=== PATIENT | male | born 1980 | race Caucasian/White ===

== ENCOUNTER 2022-05-06 14:18 | Emergency (ER) | payer OTHER, SELFPAY ==
[2022-05-06 14:20] VITALS: BP 152/89; PULSE 99; RESP 18; TEMP 36.8; O2SAT 99; BMI 17.7
--- NOTE | 2022-05-06 15:12 | ED_ITS ---
HPI - General Adult General Chief complaint: Psychiatric Symptoms <JOSE DAVID Mark - Last Filed: 05/06/22 19:02> Stated complaint: having a breakdown <JOSE DAVID Mark - Last Filed: 05/06/22 19:02> Time Seen by Provider: 05/06/22 15:11 <JOSE DAVID Mark - Last Filed: 05/06/22 19:02> Source: patient <JOSE DAVID Mark - Last Filed: 05/06/22 19:02> Mode of arrival: ambulatory <JOSE DAVID Mark - Last Filed: 05/06/22 19:02> Limitations: no limitations <JOSE DAVID Mark - Last Filed: 05/06/22 19:02> History of Present Illness HPI narrative: Patient is a 41 year old assigned male at with a history of depression and anxiety presenting to the emergency department today with increased depression. Patient states that his father recently passed and he has been more depressed since then. Patient denies any suicidal ideation, homicidal ideation, dizziness, lightheadedness, abdominal pain, nausea, vomiting, fever, chills, blurry vision, double vision, loss of vision, chest pain, difficulty breathing, shortness of breath, back pain, night sweats, pain with urination, increased urinary frequency, increased urinary urgency, blood in his urine or stool, syncope or a near syncopal episode, recent trauma or falls, bowel incontinence, bladder incontinence, bowel retention, bladder retention, or any other complaints at this time. <JOSE DAVID Mark - Last Filed: 05/06/22 19:02> Onset (ago): day(s) <JOSE DAVID Mark - Last Filed: 05/06/22 19:02> Severity: mild <JOSE DAVID Mark - Last Filed: 05/06/22 19:02> Severity scale (1-10): 2 <JOSE DAVID Mark - Last Filed: 05/06/22 19:02> Relieving factors: none <JOSE DAVID Mark - Last Filed: 05/06/22 19:02> Exacerbating factors: none <JOSE DAVID Mark - Last Filed: 05/06/22 19:02> Associated symptoms: denies other symptoms <JOSE DAVID Mark - Last Filed: 05/06/22 19:02> Treatments prior to arrival: none <JOSE DAVID Mark Last Filed: 05/06/22 19:02> Related Data Home medications: Home Medications Medication Instructions Recorded Confirmed methadone 10 mg/5 mL oral solution 94 mg PO Q4H 03/08/22 03/08/22 Previous Rx's Medication Instructions Recorded albuterol sulfate 90 mcg/actuation 2 puff inhalation Q6H PRN 07/19/20 aerosol inhaler (ProAir HFA) shortness of breath or wheezing 30 days #8.5 grams mirtazapine 7.5 mg tablet 7.5 mg PO BEDTIME 30 days #30 tabs 11/26/21 paroxetine HCl 10 mg tablet 10 mg PO DAILY 30 days #90 tabs 03/04/22 clonazepam 1 mg tablet 1 mg PO BID PRN anxiety 30 days 05/06/22 #60 tabs <JOSE DAVID Mark Last Filed: 05/06/22 19:02> Allergies/adverse reactions: Allergies Allergy/AdvReac Type Severity Reaction Status Date / Time amoxicillin [Amoxicillin] Allergy Mild SWELLING Verified 03/08/22 08:41 Penicillins Allergy Mild SWELLING Verified 03/08/22 08:41 penicillin V Allergy Unknown unknown Verified 03/08/22 08:41 Doxycycline Hyclate Allergy Unknown unknown Uncoded 03/08/22 08:41 <JOSE DAVID Mark Last Filed: 05/06/22 19:02> Review of Systems Constitutional: Constitutional: Reports no additional constitutional complaints, Denies chills, Denies fever(s) and Denies night sweats <JOSE DAVID Mark Last Filed: 05/06/22 19:02> Eyes: Eyes: Reports no additional eye complaints, Denies blurry vision, Denies change in vision, Denies diplopia, Denies eye discharge, Denies loss of vision and Denies eye pain <JOSE DAVID Mark Last Filed: 05/06/22 19:02> ENT: Denies dizziness <JOSE DAVID Mark Last Filed: 05/06/22 19:02> Cardiovascular: Cardiovascular: Reports no additional cardiovascular complaints, Denies chest pain, Denies lightheadedness, Denies Loss of Consciousness and Denies dyspnea <JOSE DAVID Mark Last Filed: 05/06/22 19:02> Respiratory: Respiratory: Reports no additional respiratory complaints and Denies dyspnea <JOSE DAVID Mark Last Filed: 05/06/22 19:02> Gastrointestinal: Gastrointestinal: Reports no additional gastrointestinal complaints, Denies abdominal pain, Denies melena, Denies hematochezia, Denies change in bowel habits and Denies change in stool character <JOSE DAVID Mark - Last Filed: 05/06/22 19:02> Genitourinary: Genitourinary: Reports no additional male genitourinary complaints, Denies hematuria, Denies oliguria, Denies difficulty urinating, Denies dysuria, Denies urinary frequency, Denies urinary hesitancy, Denies urinary incontinence and Denies urinary urgency <JOSE DAVID Mark - Last Filed: 05/06/22 19:02> Musculoskeletal: Musculoskeletal: Reports no additional musculoskeletal complaints, Denies numbness and Denies tingling <JOSE DAVID Mark - Last Filed: 05/06/22 19:02> Neurologic: Denies dizziness, Denies loss of vision, Denies numbness and Denies tingling <JOSE DAVID Mark Last Filed: 05/06/22 19:02> Psychiatric: Psychiatric: Reports no additional psychiatric complaints and Reports depression <JOSE DAVID Mark Last Filed: 05/06/22 19:02> Endocrine: Endocrine: Reports no additional endocrine complaints <JOSE DAVID Mark - Last Filed: 05/06/22 19:02> Hematologic/Lymphatic: Hematologic/Lymphatic: Reports no additional hematologic/lymphatic complaints <JOSE DAVID Mark - Last Filed: 05/06/22 19:02> Allergic/Immunologic: Allergic/Immunologic: Reports no additional allergic/immunologic complaints <JOSE DAVID Mark - Last Filed: 05/06/22 19:02> PMFSH Past Medical History Attestation statement: The following information was validated with the patient. <JOSE DAVID Mark - Last Filed: 05/06/22 19:02> Source: old records reviewed <JOSE DAVID Mark - Last Filed: 05/06/22 19:02> Medical History: Medical History Anxiety Anxiety and depression <JOSE DAVID Mark - Last Filed: 05/06/22 19:02> Surgical History: Surgical History No pertinent past surgical history <JOSE DAVID Mark - Last Filed: 05/06/22 19:02> Family History Family History: Family History Father COPD (chronic obstructive pulmonary disease) Mother Cancer Maternal Uncle Mental health disorder Paternal Uncle Mental health disorder <JOSE DAVID Mark - Last Filed: 05/06/22 19:02> Social History Social History: Social History Housing: Apartment Alcohol intake: never Patient Tobacco Use Status: Current everyday Tobacco user Cigarettes Per Day: 10 e-Cigarette/Vaping Use: Never Used Second Hand Smoke Exposure: Yes Advance Directives: No Advance Directives Information Provided: No service: No Current occupational status: unemployed Cognitive needs: No Hearing needs: No Vision needs: No <JOSE DAVID Mark - Last Filed: 05/06/22 19:02> Physical Exam ED Vital Signs: Vital Signs - 24 hr 05/06/22 14:20 Temperature 98.3 F Pulse Rate 99 Respiratory Rate 18 Blood Pressure 152/89 H Pulse Oximetry 99 Oxygen Delivery Method Room Air BMI result Body Mass Index 17.7 <JOSE DAVID Mark - Last Filed: 05/06/22 19:02> Vital Signs - 24 hr 05/06/22 14:20 Temperature 98.3 F Pulse Rate 99 Respiratory Rate 18 Blood Pressure 152/89 H Pulse Oximetry 99 Oxygen Delivery Method Room Air BMI result Body Mass Index 17.7 <Neida Lakhani NP - Last Filed: 05/06/22 18:43> Const General: cooperative, no acute distress, alert and awake <JOSE DAVID Mark - Last Filed: 05/06/22 19:02> Nutritional Appearance: well nourished <JOSE DAVID Mark - Last Filed: 05/06/22 19:02> Orientation/consciousness: patient oriented x3 <JOSE DAVID Mark - Last Filed: 05/06/22 19:02> Limitations: no limitations <JOSE DAVID Mark - Last Filed: 05/06/22 19:02> HENMT Head: Yes normal to inspection and Yes atraumatic <Yashira Salvadormady LA - Last Filed: 05/06/22 19:02> Ears: hearing grossly normal bilaterally and external ears normal <Yashira Salvadormady LA - Last Filed: 05/06/22 19:02> General nose exam: Normal external nose present, no nasal discharge noted and no epistaxis <Yashira Salvadormady LA - Last Filed: 05/06/22 19:02> Face and sinus: Yes normal facial exam, No abrasion and No laceration <Yashira Salvadormady LA - Last Filed: 05/06/22 19:02> Mouth: Normal oral and palatal mucosa present, no drooling and no muffled voice <Yashiradeysi Salvadormady LA - Last Filed: 05/06/22 19:02> Eyes General: appearance normal, both eyes and all related structures <Yashira Florez LA - Last Filed: 05/06/22 19:02> Periorbital: periorbital findings normal <Yashira Salvadormady LA - Last Filed: 05/06/22 19:02> Eyelids: Yes eyelids normal <Yashiradeysi Salvadormady LA - Last Filed: 05/06/22 19:02> Conjunctivae: conjunctivae normal <Yashira Salvadormady LA - Last Filed: 05/06/22 19:02> Pupils: Equal, round and reactive pupils present <Yashira Vikki LA - Last Filed: 05/06/22 19:02> EOM: EOMs intact bilaterally <Yashira Vikki LA - Last Filed: 05/06/22 19:02> Neck Neck: Yes normal visual inspection, Yes full ROM and Yes no lymphadenopathy <Yashira Vikki LA - Last Filed: 05/06/22 19:02> Chest Chest palpation & inspection: normal inspection of the chest <Yashira Florez LA - Last Filed: 05/06/22 19:02> Resp Effort & Inspection: normal respiratory effort and able to speak in complete sentences <JOSE DAVID Mark - Last Filed: 05/06/22 19:02> Auscultation: clear to auscultation bilaterally <Yashira Florez PA - Last Filed: 05/06/22 19:02> Cardio Rate: regular rate <Yashira Florez PA - Last Filed: 05/06/22 19:02> Rhythm: regular rhythm <Yashira Florez PA - Last Filed: 05/06/22 19:02> GI Inspection: Yes normal to inspection <Yashira Florez PA - Last Filed: 05/06/22 19:02> Neuro General: patient oriented x3 and moves all extremities <Yashira Salvadormady PA - Last Filed: 05/06/22 19:02> Cranial nerves: Yes Equal, round and reactive pupils present <Yashira Florez PA - Last Filed: 05/06/22 19:02> Cognition (Neuro): normal cognition <Yashira Florez PA - Last Filed: 05/06/22 19:02> Motor exam (neuro): 5/5 motor strength present throughout <Yashira Florez PA - Last Filed: 05/06/22 19:02> Sensory Exam: Normal double simultaneous stimulation for sensation <Yashira Salvadormady PA - Last Filed: 05/06/22 19:02> Coordination: [id number] test normal <Yashira Salvadormady PA - Last Filed: 05/06/22 19:02> Extrem General: Yes normal to inspection, Yes full ROM and Yes capillary refill normal <Yashira Salvadormady PA - Last Filed: 05/06/22 19:02> Psych Appearance: grossly normal <Yashira Salvadormady PA - Last Filed: 05/06/22 19:02> Mental Status: mental status grossly normal <Yashira SalvadorJOSE DAVID earl - Last Filed: 05/06/22 19:02> Affect: Sad affect present <Yashira Salvadormady PA - Last Filed: 05/06/22 19:02> Attitude: cooperative <Yashira Salvadormady PA - Last Filed: 05/06/22 19:02> Thought process: Normal thought process present <Yashira SalvadorJOSE DAVID earl - Last Filed: 05/06/22 19:02> Thought content: Normal thought content present <Yashira JOSE DAVID Florez - Last Filed: 05/06/22 19:02> Insight: Good insight present (Psych) <Yashira JOSE DAVID Florez - Last Filed: 05/06/22 19:02> Course Course Course Narrative: 18:41 BHN consult complete, is for discharge and referral to outpatient program. Patient denies suicidal homicidal ideation, and feels safe to be discharged home. <Neida Lakhani NP - Last Filed: 05/06/22 18:43> Medical Decision Making MDM Narrative Medical decision making narrative: Patient is a 41 year old assigned male at with a history of anxiety and depression presenting to the emergency department today with increased depression. Patient's physical exam was unremarkable. Patient's blood work was unremarkable. Patient was evaluated by the behavioral health team and they recommended him for discharge. I explained my physical exam findings as well as all test results to the patient. I answered all questions asked by the patient. I stressed the importance of the patient taking his medication as prescribed. I stressed the importance of the patient following up with his primary care pro vider. I stressed the importance of the patient returning to the emergency department immediately if his symptoms were to worsen or if he were to develop any dizziness, shortness of breath, difficulty breathing, chest pain, blurry vision, loss of vision, nausea, vomiting, abdominal pain, fever, chills, back pain, or any other complaints. Patient verbalized agreement and understanding with this treatment plan and discharge. <JOSE DAVID Mark - Last Filed: 05/06/22 19:02> Medical Records Medical records reviewed: Yes I reviewed the patient's medical records. <JOSE DAVID Mark - Last Filed: 05/06/22 19:02> Lab Data Lab results reviewed: Yes I reviewed the patient's lab results. <JOSE DAVID Mark - Last Filed: 05/06/22 19:02> Result diagrams: : 05/06/22 15:49 05/06/22 15:49 <JOSE DAVID Mark - Last Filed: 05/06/22 19:02> Labs: Lab Results 05/06/22 05/06/22 05/06/22 Range/Units 15:38 15:38 15:49 WBC 7.8 (4.8-10.8) X10*3/uL RBC 5.89 H (4.60-5.80) X10*6/uL Hgb 16.3 (14.0-18.0) g/dl Hct 48.7 (42.0-52.0) % MCV 82.7 (80.0-98.0) fL MCH 27.7 (27.0-33.0) pg MCHC 33.5 (31.0-36.0) g/dl RDW 13.6 (11.0-16.0) % Plt Count 266 (160-400) X10*3/uL MPV 8.6 L (9.4-12.4) fL Immature Gran % (Auto) 0.4 (0.0-0.4) % Neut % (Auto) 63.7 (45-73) % Lymph % (Auto) 25.8 (20-40) % [place] % (Auto) 9.0 (2-11) % Eos % (Auto) 0.6 (0-4) % Baso % (Auto) 0.5 (0-2) % Lymph # (Auto) 2.0 (1.2-4.9) X10*3/uL [place] # (Auto) 0.7 (0.1-1.2) X10*3/uL Eos # (Auto) 0.1 (0.0-0.4) X10*3/uL Baso # (Auto) 0.0 (0.0-0.2) X10*3/uL Abs Immat Gran (auto) 0.03 (0.00-0.03) X10*3/uL Absolute Neuts (auto) 5.0 (2.0-8.3) x10*3/uL Absolute Nucleated RBC 0.000 (0.0-0.012) X10*3/uL Nucleated RBC % (auto) 0.0 (0.0-0.2) /100WBC Sodium (135-145) mmol/L Potassium (3.3-5.1) mmol/L Chloride (96-108) mmol/L Carbon Dioxide (22-29) mmol/L Anion Gap (12-20) BUN (9-16) mg/dL Creatinine (0.5-1.4) mg/dL Estim Creat Clear Calc Estimated GFR Random Glucose (60-115) mg/dL Calcium (8.4-10.2) mg/dL Total Bilirubin (0.0-1.0) mg/dL AST (5-37) U/L ALT (0-40) U/L Alkaline Phosphatase (39-117) U/L Total Protein (6.5-8.0) g/dL Albumin (3.5-5.0) g/dL Salicylates (15-30) mg/dL Urine Opiates Screen POSITIVE H (Not Detect) Urine Fentanyl Screen POSITIVE H (Not Detect) Acetaminophen (<30) mcg/mL Ur Barbiturates Screen Not Detected (Not Detect) Ur Phencyclidine Scrn Not Detected (Not Detect) Ur Amphetamines Screen Not Detected (Not Detect) U Benzodiazepines Scrn Not Detected (Not Detect) Urine Cocaine Screen Not Detected (Not Detect) U Marijuana (THC) Screen POSITIVE H (Not Detect) Ethyl Alcohol mg/dL COVID-19 (ROLF) Negative (Negative) COVID-19 Clin Com See Note 05/06/22 Range/Units 15:49 WBC (4.8-10.8) X10*3/uL RBC (4.60-5.80) X10*6/uL Hgb (14.0-18.0) g/dl Hct (42.0-52.0) % MCV (80.0-98.0) fL MCH (27.0-33.0) pg MCHC (31.0-36.0) g/dl RDW (11.0-16.0) % Plt Count (160-400) X10*3/uL MPV (9.4-12.4) fL Immature Gran % (Auto) (0.0-0.4) % Neut % (Auto) (45-73) % Lymph % (Auto) (20-40) % [place] % (Auto) (2-11) % Eos % (Auto) (0-4) % Baso % (Auto) (0-2) % Lymph # (Auto) (1.2-4.9) X10*3/uL [place] # (Auto) (0.1-1.2) X10*3/uL Eos # (Auto) (0.0-0.4) X10*3/uL Baso # (Auto) (0.0-0.2) X10*3/uL Abs Immat Gran (auto) (0.00-0.03) X10*3/uL Absolute Neuts (auto) (2.0-8.3) x10*3/uL Absolute Nucleated RBC (0.0-0.012) X10*3/uL Nucleated RBC % (auto) (0.0-0.2) /100WBC Sodium 136 (135-145) mmol/L Potassium 4.6 (3.3-5.1) mmol/L Chloride 97 (96-108) mmol/L Carbon Dioxide 26 (22-29) mmol/L Anion Gap 18 (12-20) BUN 12 (9-16) mg/dL Creatinine 0.93 (0.5-1.4) mg/dL Estim Creat Clear Calc 82.1 Estimated GFR > 60 Random Glucose 81 (60-115) mg/dL Calcium 10.0 (8.4-10.2) mg/dL Total Bilirubin 1.0 (0.0-1.0) mg/dL AST 17 (5-37) U/L ALT 12 (0-40) U/L Alkaline Phosphatase 70 (39-117) U/L Total Protein 8.1 H (6.5-8.0) g/dL Albumin 4.7 (3.5-5.0) g/dL Salicylates < 5.0 L (15-30) mg/dL Urine Opiates Screen (Not Detect) Urine Fentanyl Screen (Not Detect) Acetaminophen < 1 (<30) mcg/mL Ur Barbiturates Screen (Not Detect) Ur Phencyclidine Scrn (Not Detect) Ur Amphetamines Screen (Not Detect) U Benzodiazepines Scrn (Not Detect) Urine Cocaine Screen (Not Detect) U Marijuana (THC) Screen (Not Detect) Ethyl Alcohol < 10 mg/dL COVID-19 (ROLF) (Negative) COVID-19 Clin Com <JOSE DAVID Mark - Last Filed: 05/06/22 19:02> Lab Results 05/06/22 05/06/22 05/06/22 Range/Units 15:38 15:38 15:49 WBC 7.8 (4.8-10.8) X10*3/uL RBC 5.89 H (4.60-5.80) X10*6/uL Hgb 16.3 (14.0-18.0) g/dl Hct 48.7 (42.0-52.0) % MCV 82.7 (80.0-98.0) fL MCH 27.7 (27.0-33.0) pg MCHC 33.5 (31.0-36.0) g/dl RDW 13.6 (11.0-16.0) % Plt Count 266 (160-400) X10*3/uL MPV 8.6 L (9.4-12.4) fL Immature Gran % (Auto) 0.4 (0.0-0.4) % Neut % (Auto) 63.7 (45-73) % Lymph % (Auto) 25.8 (20-40) % [place] % (Auto) 9.0 (2-11) % Eos % (Auto) 0.6 (0-4) % Baso % (Auto) 0.5 (0-2) % Lymph # (Auto) 2.0 (1.2-4.9) X10*3/uL [place] # (Auto) 0.7 (0.1-1.2) X10*3/uL Eos # (Auto) 0.1 (0.0-0.4) X10*3/uL Baso # (Auto) 0.0 (0.0-0.2) X10*3/uL Abs Immat Gran (auto) 0.03 (0.00-0.03) X10*3/uL Absolute Neuts (auto) 5.0 (2.0-8.3) x10*3/uL Absolute Nucleated RBC 0.000 (0.0-0.012) X10*3/uL Nucleated RBC % (auto) 0.0 (0.0-0.2) /100WBC Sodium (135-145) mmol/L Potassium (3.3-5.1) mmol/L Chloride (96-108) mmol/L Carbon Dioxide (22-29) mmol/L Anion Gap (12-20) BUN (9-16) mg/dL Creatinine (0.5-1.4) mg/dL Estim Creat Clear Calc Estimated GFR Random Glucose (60-115) mg/dL Calcium (8.4-10.2) mg/dL Total Bilirubin (0.0-1.0) mg/dL AST (5-37) U/L ALT (0-40) U/L Alkaline Phosphatase (39-117) U/L Total Protein (6.5-8.0) g/dL Albumin (3.5-5.0) g/dL Salicylates (15-30) mg/dL Urine Opiates Screen POSITIVE H (Not Detect) Urine Fentanyl Screen POSITIVE H (Not Detect) Acetaminophen (<30) mcg/mL Ur Barbiturates Screen Not Detected (Not Detect) Ur Phencyclidine Scrn Not Detected (Not Detect) Ur Amphetamines Screen Not Detected (Not Detect) U Benzodiazepines Scrn Not Detected (Not Detect) Urine Cocaine Screen Not Detected (Not Detect) U Marijuana (THC) Screen POSITIVE H (Not Detect) Ethyl Alcohol mg/dL COVID-19 (ROLF) Negative (Negative) COVID-19 Clin Com See Note 05/06/22 Range/Units 15:49 WBC (4.8-10.8) X10*3/uL RBC (4.60-5.80) X10*6/uL Hgb (14.0-18.0) g/dl Hct (42.0-52.0) % MCV (80.0-98.0) fL MCH (27.0-33.0) pg MCHC (31.0-36.0) g/dl RDW (11.0-16.0) % Plt Count (160-400) X10*3/uL MPV (9.4-12.4) fL Immature Gran % (Auto) (0.0-0.4) % Neut % (Auto) (45-73) % Lymph % (Auto) (20-40) % [place] % (Auto) (2-11) % Eos % (Auto) (0-4) % Baso % (Auto) (0-2) % Lymph # (Auto) (1.2-4.9) X10*3/uL [place] # (Auto) (0.1-1.2) X10*3/uL Eos # (Auto) (0.0-0.4) X10*3/uL Baso # (Auto) (0.0-0.2) X10*3/uL Abs Immat Gran (auto) (0.00-0.03) X10*3/uL Absolute Neuts (auto) (2.0-8.3) x10*3/uL Absolute Nucleated RBC (0.0-0.012) X10*3/uL Nucleated RBC % (auto) (0.0-0.2) /100WBC Sodium 136 (135-145) mmol/L Potassium 4.6 (3.3-5.1) mmol/L Chloride 97 (96-108) mmol/L Carbon Dioxide 26 (22-29) mmol/L Anion Gap 18 (12-20) BUN 12 (9-16) mg/dL Creatinine 0.93 (0.5-1.4) mg/dL Estim Creat Clear Calc 82.1 Estimated GFR > 60 Random Glucose 81 (60-115) mg/dL Calcium 10.0 (8.4-10.2) mg/dL Total Bilirubin 1.0 (0.0-1.0) mg/dL AST 17 (5-37) U/L ALT 12 (0-40) U/L Alkaline Phosphatase 70 (39-117) U/L Total Protein 8.1 H (6.5-8.0) g/dL Albumin 4.7 (3.5-5.0) g/dL Salicylates < 5.0 L (15-30) mg/dL Urine Opiates Screen (Not Detect) Urine Fentanyl Screen (Not Detect) Acetaminophen < 1 (<30) mcg/mL Ur Barbiturates Screen (Not Detect) Ur Phencyclidine Scrn (Not Detect) Ur Amphetamines Screen (Not Detect) U Benzodiazepines Scrn (Not Detect) Urine Cocaine Screen (Not Detect) U Marijuana (THC) Screen (Not Detect) Ethyl Alcohol < 10 mg/dL COVID-19 (ROLF) (Negative) COVID-19 Clin Com <Neida Lakhani NP - Last Filed: 05/06/22 18:43> Discharge Plan Discharge Clinical Impression: Depression <JOSE DAVID Mark - Last Filed: 05/06/22 19:02> Patient Disposition: Home, Self-Care <JOSE DAVID Mark - Last Filed: 05/06/22 19:02> Instructions: Depression (ED) <JOSE DAVID Mark - Last Filed: 05/06/22 19:02> Additional Instructions: Follow-up with outpatient psychiatry as scheduled. Thank you for choosing this emergency department for evaluation. Please follow-up with primary care physician as needed. Return to the emergency department for any new, concerning, or worsening symptoms. <JOSE DAVID Mark - Last Filed: 05/06/22 19:02> Prescriptions: No Action albuterol sulfate [ProAir HFA] 90 mcg/actuation HFA aerosol inhaler 2 puff inhalation Q6H PRN (Reason: shortness of breath or wheezing) 30 Days Qty: 8.5 4RF mirtazapine 7.5 mg tablet 7.5 mg PO BEDTIME 30 Days Qty: 30 3RF paroxetine HCl 10 mg tablet 10 mg PO DAILY 30 Days Qty: 90 0RF clonazepam 1 mg tablet 1 mg PO BID PRN (Reason: anxiety) 30 Days Qty: 60 0RF methadone 10 mg/5 mL solution 94 mg PO Q4H <JOSE DAVID Mark - Last Filed: 05/06/22 19:02> Interventions: ED Discharge Assessment Last Done: 05/06/22 18:51 <JOSE DAVID Mark - Last Filed: 05/06/22 19:02>
[2022-05-06 15:59] LABS: MANUAL DIFF FLAG NO
[2022-05-06 16:01] LABS: COVID-19 Test Negative (Negative)
[2022-05-06 16:02] LABS: Basophils Percent Auto 0.5 % (0-2); Eosinophils Absolute Auto 0.1 X10*3/uL (0.0-0.4); Eosinophils Percent Auto 0.6 % (0-4); Hematocrit 48.7 % (42.0-52.0); Hemoglobin 16.3 g/dl (14.0-18.0); Imm Gran Abs Auto 0.03 X10*3/uL (0.00-0.03); Imm Gran Pct Auto 0.4 % (0.0-0.4); Lymphocytes Percent Auto 25.8 % (20-40); Mean Corpuscular HGB Conc 33.5 g/dl (31.0-36.0); Mean Corpuscular Hemoglobin 27.7 pg (27.0-33.0); Mean Corpuscular Volume 82.7 fL (80.0-98.0); Mean Platelet Volume 8.6 fL (9.4-12.4); Monocytes Absolute Auto 0.7 X10*3/uL (0.1-1.2); Neutrophils Percent Auto 63.7 % (45-73); Platelet Count 266 X10*3/uL (160-400); Red Blood Count 5.89 X10*6/uL (4.60-5.80); Red Cell Distribution Width 13.6 % (11.0-16.0); White Blood Count 7.8 X10*3/uL (4.8-10.8)
[2022-05-06 16:04] LABS: Amphetamine Screen Urine Not Detected (Not Detect); Barbiturates, Urine Not Detected (Not Detect); Benzodiazepines Screen Urine Not Detected (Not Detect); Cannabinoid Screen Urine POSITIVE (Not Detect); Cocaine Screen Urine Not Detected (Not Detect); Fentanyl, urine POSITIVE (Not Detect); Opiate Screen Urine POSITIVE (Not Detect); Phencyclidine Screen Urine Not Detected (Not Detect)
[2022-05-06 16:17] LABS: Acetaminophen LAB < 1 mcg/mL (<30); Alanine Aminotransferase 12 U/L (0-40); Albumin Level 4.7 g/dL (3.5-5.0); Alkaline Phosphatase 70 U/L (39-117); Anion Gap 18 (12-20); Aspartate Amino Transferase 17 U/L (5-37); Blood Urea Nitrogen 12 mg/dL (9-16); Carbon Dioxide 26 mmol/L (22-29); Chloride 97 mmol/L (96-108); Creatinine Clr Calc Pharmacy 82.1; Estimated Glomerular Filt Rate > 60; Ethanol < 10 mg/dL; Glucose Random 81 mg/dL (60-115); Potassium 4.6 mmol/L (3.3-5.1); Salicylate < 5.0 mg/dL (15-30); Sodium 136 mmol/L (135-145); Total Protein 8.1 g/dL (6.5-8.0)
== END 2022-05-06 19:13 | disposition home or self-care (01) ==
PROVIDERS: Physician Assistant Medical; Emergency Provider Emergency Medicine; PCP Nurse Practitioner Family
DX: F33.1 Major depressive disorder, recurrent, moderate (principal); F17.210 Nicotine dependence, cigarettes, uncomplicated; Z20.822 Contact with and (suspected) exposure to COVID-19; Z79.899 Other long term (current) drug therapy; Z71.6 Tobacco abuse counseling
CPT/HCPCS: 36415; 80053; 80143; 80179; 80307; 82077; 85025; 87635; 99282; 99283

== ENCOUNTER 2023-02-01 10:31 | Outpatient (AMB) | payer OTHER, SELFPAY ==
[2023-02-01 10:55] VITALS: BP 130/72; PULSE 70; O2SAT 97; BMI 17.8
--- NOTE | 2023-02-01 10:55 | A.OFFPC_ITS ---
Vital Signs 02/01/23 10:55 Height 5 ft 9 in Weight 120 lb 6 oz BMI 17.8 BP 130/72 Blood Pressure Location Rt brachial Position Sitting Pulse 70 Pulse Source Pulse Oximeter Pulse Oximetry (%) 97 Oxygen Delivery Method Room Air Intake Visit Reasons: Med review Allergies amoxicillin [Amoxicillin] Allergy (Mild, Verified 02/01/23 10:57) SWELLING Penicillins Allergy (Mild, Verified 02/01/23 10:57) SWELLING penicillin V Allergy (Unknown, Verified 02/01/23 10:57) unknown Doxycycline Hyclate Allergy (Unknown, Uncoded 02/01/23 10:57) unknown Tobacco use date assessed: 02/01/23 Dental Screening Dental Screen Date: 02/01/23 Did you have a dental visit in the last 12 months?: No Did you have a dental problem in the last 6 months where you did not have access to dental care?: Yes Was dental information given to patient?: Patient declined HPI Med review HPI Details Pt is using opiates intermittently (sniffing heroin). He is currently on methadone. Pt is working with Nurse Navigator. Denies fever, chills, and dizziness. will get a EKG today, being on methadone. pt denies any SI or HI. NN is working on getting him in with a psychiatrist and psychologist. He does have narcan at home, he knows to not take his benzos concurrently with any other drug, including street drugs. Pt understands the dangers of his heroin use. [facility] Medical History Anxiety Anxiety and depression Surgical History No pertinent past surgical history Family History Father COPD (chronic obstructive pulmonary disease) Mother Cancer Maternal Uncle Mental health disorder Paternal Uncle Mental health disorder Social History Housing: Apartment Alcohol intake: never Patient Tobacco Use Status: Current everyday Tobacco user Cigarettes Per Day: 6 e-Cigarette/Vaping Use: Never Used Second Hand Smoke Exposure: Yes service: No Current occupational status: unemployed Cognitive needs: No Hearing needs: No Vision needs: No Questionnaire Thrive Questionnaire Date Thrive assessed: 03/08/22 SHUN-7 AMB Questionnaire SHUN-7 Date SHUN - 7 assessed: 03/08/22 Source: Developed by Drs. Clarence Yost, Louise Gillespie, Marco Ozuna and colleagues, with an educational ruslan from [employer]. Review of Systems Const Reports as per HPI Physical exam (Primary Care) Vital Signs: Last Vital Signs Pulse 70 02/01/23 10:55 BP 130/72 02/01/23 10:55 Pulse Ox 97 02/01/23 10:55 Oxygen Delivery Method Room Air 02/01/23 10:55 BMI result Body Mass Index 17.8 Tobacco/Smoking Status: Tobacco use Status Tobacco use date assessed 02/01/23 02/01/23 11:00 Patient Tobacco Use Status Current everyday Tobacco 02/01/23 11:00 e-Cigarette/Vaping Use Never Used 02/01/23 11:00 Thrive Assessment: Date of Thrive Assessment Date Thrive assessed 03/08/22 02/01/23 11:00 Const Other: skinny stature. General: cooperative Orientation/consciousness: patient oriented x3 Resp Effort & Inspection: normal respiratory effort Auscultation: clear to auscultation bilaterally Cardio Rate: regular rate Rhythm: regular rhythm Heart sounds: S1 normal heart sound present and S2 normal heart sound present Skin Other: scabbed lesions noted to BUE. no signs of infection Neuro General: patient oriented x3 Psych Appearance: grossly normal Mental Status: mental status grossly normal Speech and movement: Normal speech and movement present Affect: normal affect Attitude: cooperative Thought process: Normal thought process present Thought content: Normal thought content present Insight: Good insight present (Psych) Judgement: Good judgement present (Psych) Assessment and Plan Assessment & Plan (1) Opiate abuse, episodic: Code(s): F11.10 - Opioid abuse, uncomplicated Plan The patient agreed to the use of a medical laboratory technical officer for this encounter. Scribed for LALY Steel by Delfina Pitts medical laboratory technical officer, on 02/01/2023 at 11:30 EST. Orders: Orders AMB EKG-In Office Today F11.10 - Opioid abuse, uncomplicated Medications: Changed From clonazepam Further refill will required appointment 1 mg PO BID 7 days PRN 14 tabs 0RF anxiety To clonazepam Further refill will required appointment 1 mg PO BID PRN 60 tabs 0RF anxiety 30 days Coding Level of Care Code Est Pt Level 3 (22715) Diagnoses Opiate abuse, episodic F11.10
== END 2023-02-01 12:14 | disposition home or self-care (01) ==
PROVIDERS: PCP Nurse Practitioner Family; Visit Provider Nurse Practitioner Family
DX: F11.10 Opioid abuse, uncomplicated (principal)
CPT/HCPCS: 99213

== ENCOUNTER 2023-08-02 07:45 | Outpatient (AMB) | payer OTHER, SELFPAY ==
[2023-08-02 07:40] VITALS: BP 92/60; PULSE 74; O2SAT 99; BMI 20.1
--- NOTE | 2023-08-02 07:40 | A.OFFPC_ITS ---
Vital Signs 08/02/23 07:40 Height 5 ft 9 in Weight 136 lb BMI 20.1 BP 92/60 Blood Pressure Location Lt brachial Position Sitting Pulse 74 Pulse Source Pulse Oximeter Pulse Oximetry (%) 99 Oxygen Delivery Method Room Air Intake Visit Reasons: PE Rescheduled from 07/30/23 appt. Intake Note: Pt is here today for his PE Allergies amoxicillin [Amoxicillin] Allergy (Mild, Verified 08/02/23 07:40) SWELLING Penicillins Allergy (Mild, Verified 08/02/23 07:40) SWELLING penicillin V Allergy (Unknown, Verified 08/02/23 07:40) unknown Doxycycline Hyclate Allergy (Unknown, Uncoded 08/02/23 07:40) unknown Medication List - Last Reconciled 08/02/23 by LALY Dejesus albuterol sulfate 90 mcg/actuation (Ventolin HFA) 1 inh inhalation QID PRN clonazepam 1 mg PO BID PRN 30 days methadone 109 mg PO DAILY mirtazapine 7.5 mg PO BEDTIME 30 days paroxetine HCl 10 mg PO DAILY 90 days Tobacco use date assessed: 08/02/23 Dental Screening Dental Screen Date: 08/02/23 Did you have a dental visit in the last 12 months?: No Was dental information given to patient?: Patient declined HPI PE Rescheduled from 07/30/23 appt. HPI Details Pt is here for a PE. Will order labs. Pt reports a tooth/gum infection. He knows he needs to see a maxillofacial specialist for this. Will send antibiotic. Pt was homeless, now living with friends, pt reported. spoke with pt, in the office, today. [facility] Medical History Anxiety and depression Anxiety Surgical History No pertinent past surgical history Family History Father COPD (chronic obstructive pulmonary disease) Mother Cancer Maternal Uncle Mental health disorder Paternal Uncle Mental health disorder Social History Housing: Apartment Alcohol intake: never Patient Tobacco Use Status: Current everyday Tobacco user Cigarettes Per Day: 6 e-Cigarette/Vaping Use: Never Used Second Hand Smoke Exposure: Yes service: No Current occupational status: unemployed Cognitive needs: No Hearing needs: No Vision needs: No Questionnaire PHQ-9 Over the last 2 weeks, how often have you been bothered by any of the following problems? 1. Little interest or pleasure in doing things: nearly every day 2. Feeling down, depressed, or hopeless: nearly every day 3. Trouble falling or staying asleep, or sleeping too much: nearly every day 4. Feeling tired or having little energy: nearly every day 5. Poor appetite or overeating: nearly every day 6. Feeling bad about yourself - or that you are a failure or have let yourself or your family down: nearly every day 7. Trouble concentrating on things, such as reading the newspaper or watching television: nearly every day 8. Moving or speaking so slowly that other people could have noticed. Or the opposite - being so fidgety or restless that you have been moving around a lot more than usual: nearly every day 9. Thoughts that you would be better off or of hurting yourself in some way: nearly every day Total score: 27 Depression Screening Interpretation: Positive (ami () spoke with pt. ) Depression Screening Follow-up: Existing condition and Community Mental Health Worker F/U Depression Screening Done: Yes 77509 - PHQ-9 Billing: Yes Source: Developed by Drs. Clarence Yost, Louise Gillespie, Marco Ozuna and colleagues, with an educational ruslan from [employer]. Thrive Questionnaire Date Thrive assessed: 08/02/23 I am a: Patient What is your living situation today?: I do not have a steady places to live Within the past 12 months, did the food you bought not last and you didn't have the money to get more?: Often true Within the past 12 months, did you worry whether your food would run out before you got money to buy more?: Often true Do you have trouble paying for medicines?: No Do you have trouble getting transportation to medical appointments?: Yes Do you have trouble paying your heating and electricity bill?: Yes Do you have trouble taking care of your child, family member or friend?: No Do you have trouble with day-to-day activities such as bathing, preparing meals, shopping, managing finances, etc.?: Yes Are you currently unemployed and looking for a job?: No Are you interested in more education?: No Currently or been in a relationship where the following occur: no concerns reported THRIVE Score: 5 AUDIT C Alcohol Use Questionnaire (AUDIT-C) 1. How often do you have a drink containing alcohol?: Never Total Score: 0 SHUN-7 AMB Questionnaire SHUN-7 Date SHUN - 7 assessed: 08/02/23 Feeling nervous, anxious, or on edge: 3 = Nearly every day Not being able to stop or control worryin = Nearly every day Worrying too much about different things: 3 = Nearly every day Trouble relaxin = Nearly every day Being so restless that it is hard to sit still: 3 = Nearly every day Becoming easily annoyed or irritable: 3 = Nearly every day Feeling afraid as if something awful might happen: 3 = Nearly every day Total SHUN-7 score (0-4 normal; 5-9 mild; 10-14 moderate; 15-21 severe): 21 Source: Developed by Drs. Clarence Yost, Louise Gillespie, Marco Ozuna and colleagues, with an educational ruslan from [employer]. SHUN-7 Assessment Billing SHUN-7 Assessment Tool: SHUN-7 Assessment 05169 Review of Systems Const Denies chills and Denies fever(s) Eyes Denies blurry vision ENT Denies vertigo, Denies dizziness and Denies sore throat Card Denies chest pain at rest, Denies chest pain with activity, Denies diaphoresis, Denies dyspnea and Denies dyspnea on exertion Resp Denies cough, Denies dyspnea, Denies dyspnea on exertion and Denies wheezing GI Denies abdominal pain, Denies melena, Denies hematochezia, Denies constipation, Denies diarrhea and Denies loose stools Denies hematuria Musc Denies numbness and Denies tingling Skin/Breast Denies lesions Neuro Denies vertigo, Denies dizziness, Denies numbness and Denies tingling Psych Denies anxiety, Denies depression, Denies homicidal ideation, Denies suicidal ideation and Denies other (substance abuse) Aller/Immun Denies wheezing Physical exam (Primary Care) Vital Signs: Last Vital Signs Pulse 74 08/02/23 07:40 BP 92/60 08/02/23 07:40 Pulse Ox 99 08/02/23 07:40 Oxygen Delivery Method Room Air 08/02/23 07:40 BMI result Body Mass Index 20.1 Tobacco/Smoking Status: Tobacco use Status Tobacco use date assessed 08/02/23 08/02/23 07:42 Patient Tobacco Use Status Current everyday Tobacco 08/02/23 07:42 e-Cigarette/Vaping Use Never Used 08/02/23 07:42 Depression Screening Interpretation: Positive (ami () spoke with pt. ) Depression Screening Follow-up: Existing condition and Community Mental Health Worker F/U Thrive Assessment: Date of Thrive Assessment Date Thrive assessed 03/08/22 08/02/23 07:42 Currently or been in a relationship where the following occur: no concerns reported Const General: cooperative Nutritional Appearance: well nourished Orientation/consciousness: patient oriented x3 HENMT Other: tooth/gum infection right lower aspect, singular tooth growing in front of other tooth Head: Yes normal to inspection, Yes normocephalic and Yes atraumatic Ears: TM's normal bilaterally Teeth and gingiva: poor dentition Eyes General: appearance normal, both eyes and all related structures Alignment and Position: alignment normal and position normal Neck Neck: Yes normal visual inspection and Yes no lymphadenopathy Thyroid: Thyroid normal Resp Effort & Inspection: normal respiratory effort Auscultation: clear to auscultation bilaterally Cardio Rate: regular rate Rhythm: regular rhythm Heart sounds: S1 normal heart sound present, S2 normal heart sound present and no murmurs GI Palpation (GI): Soft to palpation and nontender Auscultation: normal bowel sounds Male General Exam: Yes normal external exam Skin Rashes: no rashes Neuro General: patient oriented x3, moves all extremities, no focal motor deficits and deep tendon reflexes 2+ bilaterally Romberg Test: Negative Psych Appearance: grossly normal Mental Status: mental status grossly normal Speech and movement: Normal speech and movement present Affect: normal affect Attitude: cooperative Thought process: Normal thought process present Thought content: Normal thought content present Insight: Good insight present (Psych) Judgement: Good judgement present (Psych) Assessment and Plan Assessment & Plan (1) Physical exam: Code(s): Z00.00 - Encounter for general adult medical examination without abnormal findings Plan: Labs ordered (2) Tooth infection: Code(s): K04.7 - Periapical abscess without sinus Plan: bactrim sent, needs to follow up with maxillofacial specialist Plan The patient agreed to the use of a biomedical engineering technician for this encounter. Scribed for ELI Steel-ANISHA by Delfina Pitts biomedical engineering technician, on 08/02/2023 at 07:55 EST. Orders: Orders Complete Blood Count Auto Diff Today Z00.00 - Encounter for general adult medical examination without abnormal findings Comprehensive [place]. Panel Fast Today Z00.00 - Encounter for general adult medical examination without abnormal findings TSH reflex Free T4 Today Z00.00 - Encounter for general adult medical examination without abnormal findings UA CC w/rflx Micro + Cult Today Z00.00 - Encounter for general adult medical examination without abnormal findings Lipid Panel Today Z00.00 - Encounter for general adult medical examination without abnormal findings Medications: New sulfamethoxazole-trimethoprim 800-160 mg (Bactrim DS) 1 tab PO BID 4 days 8 tabs 0RF Coding Level of Care Code Est Pt Prev Care 40-64y(04349) Diagnoses Physical exam Z00.00 Tooth infection K04.7 Additional Codes SHUN-7 Assessment Billing - SHUN-7 Assessment Tool: SHUN-7 Assessment 17688 ([id number])
== END 2023-08-02 17:32 | disposition home or self-care (01) ==
PROVIDERS: PCP Nurse Practitioner Family; Visit Provider Nurse Practitioner Family
DX: Z00.00 Encounter for general adult medical examination without abnormal findings (principal); K04.7 Periapical abscess without sinus
CPT/HCPCS: 99396

== ENCOUNTER 2023-08-24 17:54 | Emergency (ER) | payer OTHER, SELFPAY ==
[2023-08-24 18:02] VITALS: BP 167/91; PULSE 81; RESP 18; TEMP 37; O2SAT 97; BMI 22.8
--- NOTE | 2023-08-24 18:02 | ED_ITS ---
HPI - Dental/Oral General Chief complaint: Dental/Oral Stated complaint: MOUTH PAIN Time Seen by Provider: 08/24/23 19:23 Source: patient Mode of arrival: ambulatory Limitations: no limitations History of Present Illness HPI Narrative: Patient with poor oral hygiene with multiple loss of teeth and caries comes here chronic infection the lower right pre more with broken tooth for last few months getting worse patient just finished a course of clindamycin for 10 Related Data Home Medications Medication Instructions Recorded Confirmed methadone 10 mg/5 mL oral solution 109 mg PO DAILY 11/24/22 08/02/23 Previous Rx's Medication Instructions Recorded albuterol sulfate 90 mcg/actuation 1 inh inhalation QID PRN shortness 11/23/22 aerosol inhaler (Ventolin HFA) of breath or wheezing #8.5 grams mirtazapine 7.5 mg tablet 7.5 mg PO BEDTIME 30 days #30 tabs 06/24/23 clindamycin HCl 300 mg capsule 300 mg PO TID 10 days #30 caps 08/02/23 clonazepam 1 mg tablet 1 mg PO BID PRN anxiety 5 days #10 08/22/23 tabs paroxetine HCl 10 mg tablet 10 mg PO DAILY 90 days #90 tabs 08/22/23 levofloxacin 500 mg tablet 500 mg PO DAILY 7 days #7 tabs 08/24/23 tramadol 50 mg tablet 50 mg PO Q6H PRN pain #20 tabs 08/24/23 Allergies Allergy/AdvReac Type Severity Reaction Status Date / Time amoxicillin [Amoxicillin] Allergy Mild SWELLING Verified 08/24/23 18:04 Penicillins Allergy Mild SWELLING Verified 08/24/23 18:04 penicillin V Allergy Unknown unknown Verified 08/24/23 18:04 Doxycycline Hyclate Allergy Unknown unknown Uncoded 08/02/23 07:40 Review of Systems 2 Review of Systems: Yes all other systems are reviewed and are negative PMFSH Past Medical History Medical History Anxiety and depression Anxiety Surgical History No pertinent past surgical history Family History Family History Father COPD (chronic obstructive pulmonary disease) Mother Cancer Maternal Uncle Mental health disorder Paternal Uncle Mental health disorder Social History Social History Housing: Apartment Alcohol intake: never Patient Tobacco Use Status: Current everyday Tobacco user Cigarettes Per Day: 6 e-Cigarette/Vaping Use: Never Used Second Hand Smoke Exposure: Yes service: No Current occupational status: unemployed Cognitive needs: No Hearing needs: No Vision needs: No Physical Exam 2 Vital Signs: Vital Signs: Last Vital Signs Temp 99.1 F 08/24/23 19:08 Pulse 64 08/24/23 19:08 Resp 12 08/24/23 19:08 BP 122/77 08/24/23 19:08 Pulse Ox 99 08/24/23 19:08 O2 Del Method Room Air 08/24/23 19:08 BMI result Body Mass Index 22.8 HEENT: Teeth image: 1. Loss of tooth with fragment of tooth remaining with surrounding gum swelling Course Course Course Narrative: RME:?42 yo male here for eval of dental abscess to right lower central and lateral incisors x months. Has been draining the abscess himself at home. States this has been going on since summer. Saw his PCP who placed him on clindamycin 2 weeks ago, he completed this course however was not taking it consistently. Currently smokes tobacco. Full HPI, ROS and PE to be performed by the primary ED provider. Medical Decision Making Medical Decision Making MDM Narrative: Patient with poor oral hygiene supposed to see dentist or the check in the course of clindamycin sitting on the will give him a course of Levaquin Discharge Plan Discharge Clinical Impression: Dental abscess Patient Disposition: Home, Self-Care Instructions: Dental Abscess (ED) Additional Instructions: Follow-up with your dentist as advised Antibiotic as prescribed Pain medication as prescribed Prescriptions: New levofloxacin 500 mg tablet 500 mg PO DAILY 7 Days Qty: 7 0RF tramadol 50 mg tablet 50 mg PO Q6H PRN (Reason: pain) Qty: 20 0RF No Action albuterol sulfate [Ventolin HFA] 90 mcg/actuation HFA aerosol inhaler 1 inh inhalation QID PRN (Reason: shortness of breath or wheezing) Qty: 8.5 1RF mirtazapine 7.5 mg tablet 7.5 mg PO BEDTIME 30 Days Qty: 30 0RF clindamycin HCl 300 mg capsule 300 mg PO TID 10 Days Qty: 30 0RF paroxetine HCl 10 mg tablet 10 mg PO DAILY 90 Days Qty: 90 0RF clonazepam 1 mg tablet 1 mg PO BID PRN (Reason: anxiety) 5 Days Qty: 10 0RF Rx Instructions: Partial refill , PCP on vacation methadone 10 mg/5 mL solution 109 mg PO DAILY
[2023-08-24 19:08] VITALS: BP 122/77; PULSE 64; RESP 12; TEMP 37.3; O2SAT 99
[2023-08-24] MEDS: traMADoL HCL 50 MG TABLET PO (19:56)
[2023-08-24] MEDS: levoFLOXacin 500 MG TABLET PO (19:56)
== END 2023-08-24 20:00 | disposition home or self-care (01) ==
LOC: HO.ED 19:41
PROVIDERS: Emergency Provider Internal Medicine; PCP Nurse Practitioner Family
DX: K04.7 Periapical abscess without sinus (principal); F17.200 Nicotine dependence, unspecified, uncomplicated; Z79.899 Other long term (current) drug therapy
CPT/HCPCS: 99283

== ENCOUNTER 2023-10-18 18:32 | Emergency (ER) | payer OTHER, SELFPAY ==
[2023-10-18 19:12] VITALS: BP 137/80; PULSE 75; RESP 18; TEMP 37.1; O2SAT 98; BMI 20.7
--- NOTE | 2023-10-18 19:12 | ED_ITS ---
HPI - Abdominal Pain General Chief Complaint: Abdominal Pain Stated Complaint: ? hernia Time Seen by Provider: 10/18/23 21:18 History of Present Illness HPI narrative: The patient is a 42-year-old male who says that he is homeless. He is on methadone. 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 He says that he is accustomed to experiencing intermittent leg cramps. Over the last couple of months he has also had episodes of a strange cramping syndrome on the right side of his abdomen. He says that a few times over the last couple of months he has had rapid onset intense discomfort on the right side of his abdomen that he says pulses his abdominal wall to bulge in the shape of an S. He says the episodes are brief but uncomfortable. The last such episode was 2 days ago. He says he has had about 3 or 4 episodes over the last couple of months. He is curious to know why this might be happening. He wondered if it could be a hernia. He does not have any symptoms in his groin. The patient has a lot of scabs on his forearms. He says that he has a habit of picking skin. He denies that he is scabs are the result of IV drug use. He is on methadone. The patient is homeless Related Data Home Medications ?Medication ?Instructions ?Recorded ?Confirmed methadone 10 mg/5 mL oral solution 109 mg PO DAILY 11/24/22 08/02/23 Previous Rx's ?Medication ?Instructions ?Recorded albuterol sulfate 90 mcg/actuation 1 inh inhalation QID PRN shortness 11/23/22 aerosol inhaler (Ventolin HFA) of breath or wheezing #8.5 grams mirtazapine 7.5 mg tablet 7.5 mg PO BEDTIME 30 days #30 tabs 06/24/23 clindamycin HCl 300 mg capsule 300 mg PO TID 10 days #30 caps 08/02/23 paroxetine HCl 10 mg tablet 10 mg PO DAILY 90 days #90 tabs 08/22/23 levofloxacin 500 mg tablet 500 mg PO DAILY 7 days #7 tabs 08/24/23 tramadol 50 mg tablet 50 mg PO Q6H PRN pain #20 tabs 08/24/23 clonazepam 1 mg tablet 1 mg PO BID PRN anxiety 30 days 09/24/23 #60 tabs gabapentin 600 mg tablet 600 mg PO BID #14 tabs 10/18/23 Allergies Allergy/AdvReac Type Severity Reaction Status Date / Time amoxicillin [Amoxicillin] Allergy Mild SWELLING Verified 10/18/23 19:17 Penicillins Allergy Mild SWELLING Verified 10/18/23 19:17 penicillin V Allergy Unknown unknown Verified 10/18/23 19:17 Doxycycline Hyclate Allergy Unknown unknown Uncoded 10/18/23 19:17 Review of Systems Review of Systems Yes all other systems are reviewed and are negative [facility] Past Medical History Medical History Anxiety and depression Anxiety Surgical History No pertinent past surgical history Family History Family History Father COPD (chronic obstructive pulmonary disease) Mother Cancer Maternal Uncle Mental health disorder Paternal Uncle Mental health disorder Social History Social History Housing: Apartment Alcohol intake: never Patient Tobacco Use Status: Current everyday Tobacco user Cigarettes Per Day: 6 e-Cigarette/Vaping Use: Never Used Second Hand Smoke Exposure: Yes Advance Directives: No Advance Directives Information Provided: No service: No Current occupational status: unemployed Cognitive needs: No Hearing needs: No Vision needs: No Physical Exam ED Vital Signs: Vital Signs - 24 hr 10/18/23 19:12 10/18/23 21:03 Temperature 98.8 F 98.1 F Pulse Rate 75 76 Respiratory Rate 18 15 Blood Pressure 137/80 115/78 Pulse Oximetry 98 98 Oxygen Delivery Method Room Air Room Air BMI result Body Mass Index 20.7 Const Other: The patient is a thin, disheveled, 42-year-old. He does not appear in acute distress. HENMT Other: The patient has poor dentition. Mucous membranes are moist. Face is symmetrical Eyes Other: Pupils are round equal, conjunctivae are clear, extraocular movements intact Neck Other: No JVD, no adenopathy Resp Effort & Inspection: normal respiratory effort Auscultation: clear to auscultation bilaterally Cardio Other: No murmur Rate: regular rate Rhythm: regular rhythm Heart sounds: S1 normal heart sound present and S2 normal heart sound present GI Other: Abdomen is flat and soft. I do not appreciate any abdominal wall defects. No significant tenderness. Skin Other: The patient has multiple scabs on the skin of both forearms and hands that he attributes to picking his skin. Neuro Other: The patient is awake, alert, and appropriate. He seems grossly neurologically intact Extrem Other: No calf swelling Course Course Course Narrative: This is a Rapid Medical Examination (RME) in triage, full HPI, ROS, assessment and plan per primary provider in the Main ED. 42 yo male presents to the ER for evaluation of intermittent right sided abdominal pains and abdominal distention that has occurred several times over the last 8 months. no associated n/v/d. plan: lab workup, UA Medical Decision Making Medical Decision Making MDM Narrative: The patient is a 42-year-old male with a history of homelessness who was on methadone who presents out of concern for a few episodes of what he describes as cramping of his right abdominal wall that he was concerned could represent a hernia. On his exam I do not appreciate the presence of any hernia. He also requested a prescription for gabapentin. He says that he has an appointment later this month with his PCP. He is hoping to get back on gabapentin. He says that he takes the gabapentin for chronic neuropathic pain in his legs. I will prescribe a 2 week course of his requested gabapentin 600 mg b.i.d. Lab Data 10/18/23 19:44 10/18/23 19:44 Labs: Lab Results 10/18/23 Range/Units 19:44 WBC 11.7 H (4.8-10.8) X10*3/uL RBC 5.08 (4.60-5.80) X10*6/uL Hgb 14.4 (14.0-18.0) g/dl Hct 42.7 (42.0-52.0) % MCV 84.1 (80.0-98.0) fL MCH 28.3 (27.0-33.0) pg MCHC 33.7 (31.0-36.0) g/dl RDW 13.2 (11.0-16.0) % Plt Count 315 (160-400) X10*3/uL MPV 8.5 L (9.4-12.4) fL Immature Gran % (Auto) 0.2 (0.0-0.4) % Neut % (Auto) 71.6 (45-73) % Lymph % (Auto) 18.1 L (20-40) % [place] % (Auto) 9.0 (2-11) % Eos % (Auto) 0.6 (0-4) % Baso % (Auto) 0.5 (0-2) % Lymph # (Auto) 2.1 (1.2-4.9) X10*3/uL [place] # (Auto) 1.1 (0.1-1.2) X10*3/uL Eos # (Auto) 0.1 (0.0-0.4) X10*3/uL Baso # (Auto) 0.1 (0.0-0.2) X10*3/uL Abs Immat Gran (auto) 0.02 (0.00-0.03) X10*3/uL Absolute Neuts (auto) 8.4 H (2.0-8.3) x10*3/uL Absolute Nucleated RBC 0.000 (0.0-0.012) X10*3/uL Nucleated RBC % (auto) 0.0 (0.0-0.2) /100WBC Sodium 138 (135-145) mmol/L Potassium 3.6 (3.3-5.1) mmol/L Chloride 101 (96-108) mmol/L Carbon Dioxide 28 (22-29) mmol/L Anion Gap 13 (12-20) BUN 9 (9-16) mg/dL Creatinine 0.74 (0.5-1.4) mg/dL Estim Creat Clear Calc 119.1 Estimated GFR > 60 Random Glucose 116 H (60-115) mg/dL Calcium 9.3 D (8.4-10.2) mg/dL Magnesium 2.4 (1.6-2.6) mg/dL Total Bilirubin 0.5 (0.0-1.0) mg/dL Direct Bilirubin 0.2 (0.0-0.5) mg/dL AST 18 (5-37) U/L ALT 9 (0-40) U/L Alkaline Phosphatase 62 (39-117) U/L Total Protein 7.6 (6.5-8.0) g/dL Albumin 4.1 (3.5-5.0) g/dL Urine Color Dark Yellow Urine Appearance Turbid Urine pH 7.5 (5.0-9.0) Ur Specific [place] >= 1.030 H (1.005-1.025) Urine Protein Trace (Neg-Trace) mg/dL Urine Glucose (UA) Negative (Negative) mg/dL Urine Ketones Trace (Negative) mg/dL Urine Blood Negative (Negative) Urine Nitrite Negative (Negative) Ur Leukocyte Esterase Trace H (Negative) Urine RBC 0-2 (0-2) /HPF Urine WBC 0-5 (0-5) /HPF Ur Squamous Epith Cells 0-2 (0-2) /HPF Urine Bacteria None Seen (None Seen) Hyaline Casts 0-2 (0-2) /LPF Discharge Plan Discharge Clinical Impression: Muscle cramps Patient Disposition: Home, Self-Care Additional Instructions: I doubt that the symptoms you have been experiencing in your abdomen or the consequence of a hernia. It may be some kind of muscle cramping. I have sent a prescription for gabapentin to your pharmacy. Please plan on following up with your regular provider for additional medication. Return to the emergency room if acutely worse. Prescriptions: New gabapentin 600 mg tablet 600 mg PO BID Qty: 14 0RF No Action albuterol sulfate [Ventolin HFA] 90 mcg/actuation HFA aerosol inhaler 1 inh inhalation QID PRN (Reason: shortness of breath or wheezing) Qty: 8.5 1RF mirtazapine 7.5 mg tablet 7.5 mg PO BEDTIME 30 Days Qty: 30 0RF clindamycin HCl 300 mg capsule 300 mg PO TID 10 Days Qty: 30 0RF paroxetine HCl 10 mg tablet 10 mg PO DAILY 90 Days Qty: 90 0RF clonazepam 1 mg tablet 1 mg PO BID PRN (Reason: anxiety) 30 Days Qty: 60 1RF levofloxacin 500 mg tablet 500 mg PO DAILY 7 Days Qty: 7 0RF tramadol 50 mg tablet 50 mg PO Q6H PRN (Reason: pain) Qty: 20 0RF methadone 10 mg/5 mL solution 109 mg PO DAILY Referrals: Kd Delaney FNP-BC [Nurse Practitioner] - (muscle cramps) Print Language: Kuwaiti
--- NOTE | 2023-10-18 19:46 | MHC.EDTECH ---
Patient brought into triage area,labs,and urine obtained and sent to lab.
[2023-10-18 19:48] LABS: MANUAL DIFF FLAG NO
[2023-10-18 19:49] LABS: Basophils Absolute Auto 0.1 X10*3/uL (0.0-0.2); Basophils Percent Auto 0.5 % (0-2); Eosinophils Absolute Auto 0.1 X10*3/uL (0.0-0.4); Eosinophils Percent Auto 0.6 % (0-4); Hematocrit 42.7 % (42.0-52.0); Hemoglobin 14.4 g/dl (14.0-18.0); Imm Gran Abs Auto 0.02 X10*3/uL (0.00-0.03); Imm Gran Pct Auto 0.2 % (0.0-0.4); Lymphocytes Absolute Auto 2.1 X10*3/uL (1.2-4.9); Lymphocytes Percent Auto 18.1 % (20-40); Mean Corpuscular HGB Conc 33.7 g/dl (31.0-36.0); Mean Corpuscular Hemoglobin 28.3 pg (27.0-33.0); Mean Corpuscular Volume 84.1 fL (80.0-98.0); Mean Platelet Volume 8.5 fL (9.4-12.4); Monocytes Absolute Auto 1.1 X10*3/uL (0.1-1.2); Neutrophils Absolute Auto 8.4 x10*3/uL (2.0-8.3); Neutrophils Percent Auto 71.6 % (45-73); Platelet Count 315 X10*3/uL (160-400); Red Blood Count 5.08 X10*6/uL (4.60-5.80); Red Cell Distribution Width 13.2 % (11.0-16.0); White Blood Count 11.7 X10*3/uL (4.8-10.8)
[2023-10-18 19:51] LABS: Appearance Urine Turbid; Color Urine Dark Yellow; Glucose Urine UA Negative (Negative); Leukocyte Esterase Urine Trace (Negative); Nitrite Urine Negative (Negative); PH 7.5 (5.0-9.0); Specific Gravity - Urine >= 1.030 (1.005-1.025); UMIC TRIGGER UACC YES; Urine Blood Negative (Negative); Urine Ketones Trace mg/dL (Negative); Urine Protein Trace mg/dL (Neg-Trace)
[2023-10-18 19:53] LABS: Bacteria Urine None Seen (None Seen); Hyaline Casts Urine 0-2 /LPF (0-2); RBC Urine 0-2 /HPF (0-2); Squamous Epithelial Cell Urine 0-2 /HPF (0-2); WBC Urine 0-5 /HPF (0-5)
[2023-10-18 20:02] LABS: Alanine Aminotransferase 9 U/L (0-40); Albumin Level 4.1 g/dL (3.5-5.0); Alkaline Phosphatase 62 U/L (39-117); Anion Gap 13 (12-20); Aspartate Amino Transferase 18 U/L (5-37); Bilirubin Direct 0.2 mg/dL (0.0-0.5); Bilirubin Total 0.5 mg/dL (0.0-1.0); Blood Urea Nitrogen 9 mg/dL (9-16); Calcium 9.3 mg/dL (8.4-10.2); Carbon Dioxide 28 mmol/L (22-29); Chloride 101 mmol/L (96-108); Creatinine Clr Calc Pharmacy 119.1; Estimated Glomerular Filt Rate > 60; Glucose Random 116 mg/dL (60-115); Magnesium 2.4 mg/dL (1.6-2.6); Potassium 3.6 mmol/L (3.3-5.1); Sodium 138 mmol/L (135-145); Total Protein 7.6 g/dL (6.5-8.0)
[2023-10-18 21:03] VITALS: BP 115/78; PULSE 76; RESP 15; TEMP 36.7; O2SAT 98
[2023-10-18 21:40] VITALS: BP 115/78; PULSE 76; RESP 15; TEMP 36.7; O2SAT 98
== END 2023-10-18 21:41 | disposition home or self-care (01) ==
PROVIDERS: Physician Assistant; Emergency Provider Emergency Medicine
DX: G57.93 Unspecified mononeuropathy of bilateral lower limbs (principal); R25.2 Cramp and spasm; Z59.00 Homelessness unspecified; Z79.899 Other long term (current) drug therapy
CPT/HCPCS: 36415; 80048; 80076; 81001; 83735; 85025; 99283; 99284

== ENCOUNTER 2023-11-28 18:44 | Inpatient (IN) | payer OTHER, SELFPAY ==
[2023-11-28 19:15] VITALS: BP 116/76; PULSE 96; RESP 14; TEMP 37.3; O2SAT 98; BMI 20.1
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
[2023-11-28 20:47] LABS: MANUAL DIFF FLAG NO
[2023-11-28 20:48] LABS: Basophils Absolute Auto 0.1 X10*3/uL (0.0-0.2); Basophils Percent Auto 0.5 % (0-2); Eosinophils Percent Auto 0.3 % (0-4); Hematocrit 40.6 % (42.0-52.0); Hemoglobin 13.2 g/dl (14.0-18.0); Imm Gran Abs Auto 0.03 X10*3/uL (0.00-0.03); Imm Gran Pct Auto 0.3 % (0.0-0.4); Lymphocytes Absolute Auto 1.4 X10*3/uL (1.2-4.9); Lymphocytes Percent Auto 12.7 % (20-40); Mean Corpuscular HGB Conc 32.5 g/dl (31.0-36.0); Mean Corpuscular Hemoglobin 28.4 pg (27.0-33.0); Mean Corpuscular Volume 87.3 fL (80.0-98.0); Mean Platelet Volume 8.5 fL (9.4-12.4); Monocytes Absolute Auto 1.3 X10*3/uL (0.1-1.2); Monocytes Percent Auto 11.7 % (2-11); Neutrophils Absolute Auto 8.1 x10*3/uL (2.0-8.3); Neutrophils Percent Auto 74.5 % (45-73); Platelet Count 246 X10*3/uL (160-400); Red Blood Count 4.65 X10*6/uL (4.60-5.80); Red Cell Distribution Width 13.2 % (11.0-16.0); White Blood Count 10.8 X10*3/uL (4.8-10.8)
[2023-11-28 21:21] LABS: Acetaminophen LAB < 3 mcg/mL (<30); Alanine Aminotransferase 25 U/L (0-40); Albumin Level 3.6 g/dL (3.5-5.0); Alkaline Phosphatase 68 U/L (39-117); Anion Gap 15 (12-20); Aspartate Amino Transferase 28 U/L (5-37); Bilirubin Total 0.5 mg/dL (0.0-1.0); Blood Urea Nitrogen 14 mg/dL (9-16); Carbon Dioxide 25 mmol/L (22-29); Chloride 103 mmol/L (96-108); Creatinine Clr Calc Pharmacy 110.5; Estimated Glomerular Filt Rate > 60; Ethanol < 10 mg/dL; Glucose Random 108 mg/dL (60-115); Potassium 4.1 mmol/L (3.3-5.1); Salicylate < 5.0 mg/dL (15-30); Sodium 139 mmol/L (135-145); Total Protein 7.3 g/dL (6.5-8.0)
[2023-11-29] VITALS (9 sets, daily range): BP systolic 97–124; BP diastolic 55–82; PULSE 63–82; RESP 16–18; TEMP 36.3–37.2; O2SAT 98–100; BMI 16.8
--- NOTE | 2023-11-29 | ECG_ITS ---
Test Reason : Rule Out QTc Prolongation Blood Pressure : / mmHG Vent. Rate : 062 BPM Atrial Rate : 062 BPM P-R Int : 118 ms QRS Dur : 084 ms QT Int : 428 ms P-R-T Axes : 075 082 071 degrees QTc Int : 434 ms Normal sinus rhythm Normal ECG No previous ECGs available Referred By: Claudette Swanson Electronically Signed By:Des Marino
[2023-11-29 05:06] LABS: Appearance Urine Cloudy; Color Urine Dark Yellow; Glucose Urine UA Negative (Negative); Leukocyte Esterase Urine Negative (Negative); Nitrite Urine Negative (Negative); PH 5.5 (5.0-9.0); Specific Gravity - Urine >= 1.030 (1.005-1.025); UMIC TRIGGER UACC YES; Urine Blood Negative (Negative); Urine Ketones Negative (Negative); Urine Protein 30 (1+) mg/dL (Neg-Trace)
[2023-11-29 05:23] LABS: Amphetamine Screen Urine Not Detected (Not Detect); Barbiturates, Urine Not Detected (Not Detect); Benzodiazepines Screen Urine POSITIVE (Not Detect); Buprenorphine Scr Not Detected (Not Detect); Cannabinoid Screen Urine POSITIVE (Not Detect); Cocaine Screen Urine POSITIVE (Not Detect); Fentanyl, urine POSITIVE (Not Detect); Methadone Screen, Urine Positive (Not Detect); Opiate Screen Urine POSITIVE (Not Detect); Oxycodone Screen Urine Not Detected (Not Detect); Phencyclidine Screen Urine Not Detected (Not Detect)
[2023-11-29 05:25] LABS: Bacteria Urine None Seen (None Seen); Calcium Oxalate Crystals Urine Present; RBC Urine 0-2 /HPF (0-2); WBC Urine 0-5 /HPF (0-5)
--- NOTE | 2023-11-29 06:47 | PC.NURSE ---
Patient slept through the night, no distress observed/reported, denied SI/HI/AVH, care consult ordered/pending evaluation, VSS, med rec completed/approved/MAR active, will continue to monitor
[2023-11-29] MEDS: PARoxetine HCL 10 MG TABLET PO (08:00)
[2023-11-29] MEDS: clonazePAM 1 MG TABLET PO (08:02)
--- NOTE | 2023-11-29 09:59 | MHC.CARE ---
Benson is seen by CARE team, appears he could benefit from an inpatinet psychiatric admission, is voluntary for care.
--- NOTE | 2023-11-29 10:16 | PC.NURSE ---
Assumed care of patient at 0645, patient appears to be in no apparent distress. Resting on couch, occasionally in and out of sleep. Patient ate 100% of breakfast. Consulted with Claudia Chappell about methadone dosing
[2023-11-29] MEDS: methADONE HCl 20 MG/2 ML ORAL.CONC 30 MG PO (11:51)
--- NOTE | 2023-11-29 11:56 | MHC.RECOVRN ---
Met with pt in 8 after pt expressed interest in restarting methadone. Pt had presented to the ED seeking ATS and with thoughts of self harm. Pt evaluated by CARE Team and is inpatient bedsearch. Pt laying down, eyes closed, wakes to voice, engages in conversation, appears slightly diaphoretic. Pt reports heroin/fentanyl use, approx 1 bundle daily, IV, x a few months as well as cocaine, $30 daily, IV. Last use yesterday afternoon. Pt reports he has been on methadone since 2008, most recently at [facility] in [place]. RN confirmed pts last dose 80 mg on 10/27. Pt would like to restart methadone. Pt currently reporting withdrawal symptoms including upset stomach/nausea, body aches. Pt denies other questions or concerns for t/w. Discussed with ED provider, pt to receive 30 mg methadone. Shraddha Delacruz APRN, aware.
--- NOTE | 2023-11-29 12:07 | PC.NURSE ---
This RN called [facility] [place] to request last dose. Last dose with [facility] was on October 27 with 80mg
[2023-11-29] MEDS: cloNIDine HCL 0.1 MG TABLET PO ×2 (15:40→19:48)
[2023-11-29] MEDS: methADONE HCl 20 MG/2 ML ORAL.CONC 10 MG PO (15:40)
[2023-11-29] MEDS: Cyclobenzaprine HCl 10 MG TABLET PO (15:41)
[2023-11-29] MEDS: Dicyclomine HCl 10 MG CAPSULE PO (15:41)
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
--- NOTE | 2023-11-29 16:59 | PC.NURSE ---
Pt reports he is an active smoker, however declines NRT. Pt educated on NRT options, and verbalized understanding that he can request NRT at any time during his admission.
[2023-11-29] MEDS: Acetaminophen 325 MG TABLET 650 MG PO (18:33)
--- NOTE | 2023-11-29 18:37 | P.HPPS_ITS ---
HPI Date of Service: 11/29/23 Chief Complaint: depression, polysubstance abuse disorder, opiate Sources of Information: patient interviewed, chart reviewed and crisis/core team assessment reviewed HPI Subjective Notes: Bennett Warning, Conditional Voluntary and 3 Day Narrative: Patient is a 43-year-old male with history of depression/anxiety, opiate and cocaine use disorder, on methadone who self presents for worsening depression and with vague SI. 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 Unfortunately his father about a year ago which quickly worsened his depression; his stepfather soon after which was also upsetting. Patient tried hold onto the apartment where the 2 had been living but could not continue rent and has been homeless for the past several months with depression worsening. Now homeless, without an address, it was very difficult for patient to get PT 1 transportation and would frequently miss his methadone appointments, which would result in his methadone dose being lowered and him using more heroin and cocaine to compensate. For a short period of time he was able to get to the methadone clinic for about 8 days in a row and his dose got pushed up to 80 mg which was helpful however transportation again fell through and he has missed the past 2 weeks. Patient depression worsened still on this week he started feeling like there is no point to life, hopeless and so self presented. Denies history of manic type episodes or behaviors; denies AVH; denies alcohol or benzo abuse. Uses IV heroin/fentanyl and cocaine however says he never shares needles. Past Psychiatric History: Past psychiatric hospitalization? Has been on paroxetine 10 mg for a couple of years Has been on Remeron 7.5 mg for a couple of years Medical Evaluation Reviewed: Yes [facility] Medical History (Updated 11/29/23 @ 18:47 by Eric Draper MD) Cocaine use disorder Opioid use disorder MDD (major depressive disorder), recurrent severe, without psychosis Anxiety and depression Anxiety Surgical History No pertinent past surgical history Family History: Father: Depression Social History: Patient was living with his father until about a year ago when his father ; patient stayed in the apartment for few months but eventually became homeless. Substance History: Long history of cocaine and opioid abuse Trauma History: Deny Diagnostics Vital Signs (24Hr): Vital Signs - 24 hr 11/28/23 19:15 11/29/23 10:23 11/29/23 11:09 Temperature 99.2 F 98.9 F Pulse Rate 96 64 63 Respiratory Rate 14 16 Blood Pressure 116/76 108/64 Pulse Oximetry 98 98 100 Oxygen Delivery Method Room Air Room Air Room Air 11/29/23 12:30 11/29/23 15:40 Temperature 97.6 F Pulse Rate 65 Respiratory Rate 16 Blood Pressure 124/68 120/82 Pulse Oximetry 100 Oxygen Delivery Method Room Air BMI result Body Mass Index 16.8 Labs 11/28/23 20:44 11/28/23 20:44 Labs: Laboratory Results - last 48 hr 11/28/23 11/29/23 20:44 04:55 WBC 10.8 RBC 4.65 Hgb 13.2 L Hct 40.6 L MCV 87.3 MCH 28.4 MCHC 32.5 RDW 13.2 Plt Count 246 MPV 8.5 L Immature Gran % (Auto) 0.3 Neut % (Auto) 74.5 H Lymph % (Auto) 12.7 L [place] % (Auto) 11.7 H Eos % (Auto) 0.3 Baso % (Auto) 0.5 Lymph # (Auto) 1.4 [place] # (Auto) 1.3 H Eos # (Auto) 0.0 Baso # (Auto) 0.1 Abs Immat Gran (auto) 0.03 Absolute Neuts (auto) 8.1 Absolute Nucleated RBC 0.000 Nucleated RBC % (auto) 0.0 Sodium 139 Potassium 4.1 Chloride 103 Carbon Dioxide 25 Anion Gap 15 BUN 14 Creatinine 0.79 Estim Creat Clear Calc 110.5 Estimated GFR > 60 Random Glucose 108 Calcium 9.0 Total Bilirubin 0.5 AST 28 ALT 25 Alkaline Phosphatase 68 Total Protein 7.3 Albumin 3.6 Urine Color Dark Yellow Urine Appearance Cloudy Urine pH 5.5 Ur Specific [place] >= 1.030 H Urine Protein 30 (1+) H Urine Glucose (UA) Negative Urine Ketones Negative Urine Blood Negative Urine Nitrite Negative Ur Leukocyte Esterase Negative Urine RBC 0-2 Urine WBC 0-5 Ur Squamous Epith Cells 3-5 Calcium Oxalate Crystal Present Urine Bacteria None Seen Hyaline Casts 3-5 Salicylates < 5.0 L Urine Opiates Screen POSITIVE H Ur Buprenorphine Scrn Not Detected Ur Oxycodone Screen Not Detected Urine Methadone Screen Positive H Urine Fentanyl Screen POSITIVE H Acetaminophen < 3 Ur Barbiturates Screen Not Detected Ur Phencyclidine Scrn Not Detected Ur Amphetamines Screen Not Detected U Benzodiazepines Scrn POSITIVE H Urine Cocaine Screen POSITIVE H U Marijuana (THC) Screen POSITIVE H Ethyl Alcohol < 10 Meds/Allergies Meds Home Medications ?Medication ?Instructions ?Recorded ?Confirmed ?Type clonazepam 1 mg tablet 1 mg PO BID PRN anxiety 11/29/23 11/29/23 History mirtazapine 7.5 mg tablet 7.5 mg PO BEDTIME 11/29/23 11/29/23 History paroxetine HCl 10 mg tablet 10 mg PO DAILY 11/29/23 11/29/23 History Allergies Allergies Allergy/AdvReac Type Severity Reaction Status Date / Time amoxicillin [Amoxicillin] Allergy Mild SWELLING Verified 11/28/23 19:21 Penicillins Allergy Mild SWELLING Verified 11/28/23 19:21 penicillin V Allergy Unknown unknown Verified 11/28/23 19:21 Doxycycline Hyclate Allergy Unknown unknown Uncoded 10/18/23 19:17 Mental Status Exam Mental Status Exam Narrative: Pt is alert and oriented; behavior is cooperative and calm; patient is uncomfortable, in opioid withdrawal; dressed in casual attire, cachectic, disheveled, tattooed; mood is described as depressed and affect congruent, downcast, anxious; eye contact appropriate; Speech is a little slow, a little soft, normal prosody; psychomotor retardation present; thought process is organized and goal directed; Thought content is on feeling hopeless, no point to life; otherwise pertinent to relevant topics and without any delusional content, paranoid ideations or grandiosity; vague, transient SI, no plan or intent; no HI. There is no evidence of perceptual disturbance and denies AVH. Patients insight and judgment impaired. Assessment & Plan Assessment & Plan (1) MDD (major depressive disorder), recurrent severe, without psychosis: Status: Acute Code(s): F33.2 - Major depressive disorder, recurrent severe without psychotic features (2) Opioid use disorder: Status: Acute Code(s): F11.90 - Opioid use, unspecified, uncomplicated (3) Cocaine use disorder: Status: Acute Code(s): F14.10 - Cocaine abuse, uncomplicated (4) Anxiety: Status: Acute Code(s): F41.9 - Anxiety disorder, unspecified Plan Patient is a 43-year-old male with history of depression/anxiety, opiate and cocaine use disorder, on methadone who self presents for worsening depression and with vague SI. 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 Unfortunately his father about a year ago which quickly worsened his depression; his stepfather soon after which was also upsetting. Patient tried hold onto the apartment where the 2 had been living but could not continue rent and has been homeless for the past several months with depression worsening. Now homeless, without an address, it was very difficult for patient to get PT 1 transportation and would frequently miss his methadone appointments, which would result in his methadone dose being lowered and him using more heroin and cocaine to compensate. For a short period of time he was able to get to the methadone clinic for about 8 days in a row and his dose got pushed up to 80 mg which was helpful however transportation again fell through and he has missed the past 2 weeks. Patient depression worsened still on this week he started feeling like there is no point to life, hopeless and so self presented. Denies history of manic type episodes or behaviors; denies AVH; denies alcohol or benzo abuse. Uses IV heroin/fentanyl and cocaine however says he never shares needles. Formulation/clinical reasoning: -Patient has a history of depression/anxiety clearly worsened by ongoing severe substance abuse. -Patient has been on low dose of paroxetine and Remeron for several years and it is unclear why these have never been titrated. He agrees to increasing paroxetine at this time. -Patient asks to be back on gabapentin which he says is for foot neuropathy and leg spasms; literary writer however could only find 1 script for this over the past 2 years and that was a script for only 1 week; literary writer discussed that this will likely be best for him to discuss with his PCP to which patient agreed -patient was doing better on higher dose of methadone; will titrate Plan: CV Q 15 minute checks Increase paroxetine to 20 mg daily Continue mirtazapine 7.5 mg q.h.s.; however may eventually increase this as well Increased methadone to 40 mg daily; recommend titrating by 10 mg a day to better ensure sobriety once discharged Will not restart gabapentin at this time; will defer to patient's PCP as literary writer can not find any consistent scripts for this medication PRNs for withdrawal, including clonidine, Bentyl, Flexeril, Imodium Patient cachectic; ordered Ensure, vitamins, folic acid, thiamine Patient educated on: diagnosis, medication risk/benefits, substance abuse, therapeutic strategies and medical condition Informed Consent: understands Reason for continued inpatient stay Substantial Risk for: rapid decompensation Statement Statement: I have reviewed the history and physical and performed a pertinent examination on my patient. No changes have occurred unless specified. If the History and Physical was not performed prior to admission, the Hospitalist's service will be consulted for completing the admission physical. Time Spent With Patient Time: Total time managing care of this patient today ____ minutes.
[2023-11-29] MEDS: hydrOXYzine HCL 25 MG TABLET PO (18:39)
[2023-11-29] MEDS: Mirtazapine 7.5 MG TABLET PO (19:48)
[2023-11-29] MEDS: traZODone HCL 50 MG TABLET PO (19:48)
[2023-11-30] VITALS (8 sets, daily range): BP systolic 98–112; BP diastolic 51–78; PULSE 55–64; RESP 16–17; TEMP 36.4–36.8; O2SAT 98–100
[2023-11-30] MEDS: cloNIDine HCL 0.1 MG TABLET PO ×3 (01:26→18:47)
[2023-11-30] MEDS: Acetaminophen 325 MG TABLET 650 MG PO ×2 (01:26→13:30)
[2023-11-30] MEDS: Cyclobenzaprine HCl 10 MG TABLET PO ×2 (01:26→18:24)
[2023-11-30] MEDS: clonazePAM 1 MG TABLET PO ×2 (01:26→18:25)
[2023-11-30] MEDS: hydrOXYzine HCL 25 MG TABLET PO (06:34)
[2023-11-30] MEDS: PARoxetine HCL 20 MG TABLET PO (08:41)
[2023-11-30] MEDS: Multivitamin TABLET 1 TAB PO (08:42)
[2023-11-30] MEDS: Thiamine HCL 100 MG TABLET PO (08:42)
[2023-11-30] MEDS: Folic Acid 1 MG TABLET PO (08:42)
[2023-11-30] MEDS: methADONE HCl 20 MG/2 ML ORAL.CONC 40 MG PO (08:43)
[2023-11-30 10:00] LABS: Estimated Average Glucose 108 mg/dL; Hemoglobin A1c % 5.4 % (<6.0)
[2023-11-30 10:08] LABS: Cholesterol 124 mg/dL (<200); HDL Cholesterol 36 mg/dL (>40); LDL Cholesterol Calculated 73 mg/dL (<100); Triglycerides 75 mg/dL (<150)
[2023-11-30 10:22] LABS: Free T4 (Free Thyroxine) 0.92 ng/dL (0.71-1.85); Thyroid Stimulating Hormone 0.18 uIU/mL (0.32-4.0)
[2023-11-30] MEDS: methADONE HCl 20 MG/2 ML ORAL.CONC 10 MG PO (10:41)
[2023-11-30 11:17] LABS: Folate 16.3 ng/mL (> or = 4.0); Vitamin B12 433 pg/mL (200-900)
--- NOTE | 2023-11-30 11:40 | HO.ADDICT_ITS ---
History of Present Illness Date of Service: 11/30/2023 Chief Complaint: depression, polysubstance abuse disorder, opiate Reason for Consult: methadone titration Sources of Information: patient interviewed and chart reviewed HPI Narrative: Patient is a 43 year old male with OUD currently admitted to unit with worsening depression. Consult requested as patient was restarted on methadone on 11/28. Notes reviewed, inclduing substance use history. Per documentation, last methadone dose was 80mg on 10/28/23. Patient seen on unit with engine turner. He is quite thin, awake, alert, and appearing uncomfortable (arms wrapped around himself, anxious expression) He reports feeling unwell--withdrawal sx and anxiety. He received methadone 40mg this morning and feels it was minimally helpful He is observed sniffling, and frequently shifting in his chair He does report anxiety as his worst sx at this time. He is prescribe Klonopin 1mg BID outpatient (which has been continued here) and also has PRN medications ordered to assist with sx as well. He reports using approx a bundle or so daily. Discussed methadone dose, he reports he had previously been at 110mg, but had difficulty getting to the clinic consistently so his dose was reduced. Past Psychiatric History: Past psychiatric hospitalization? Has been on paroxetine 10 mg for a couple of years Has been on Remeron 7.5 mg for a couple of years Review of Systems Constitutional: Reports as per HPI Diagnostics Vital Signs (24Hr): Vital Signs - 24 hr 11/29/23 12:30 11/29/23 15:40 11/29/23 19:43 Temperature 97.6 F 97.4 F Pulse Rate 65 67 Respiratory Rate 16 18 Blood Pressure 124/68 120/82 97/55 L Pulse Oximetry 100 98 Oxygen Delivery Method Room Air Room Air 11/29/23 19:48 11/30/23 01:26 11/30/23 06:34 Temperature Pulse Rate Respiratory Rate Blood Pressure 97/55 L 112/78 98/66 Pulse Oximetry Oxygen Delivery Method BMI result Body Mass Index 16.8 Labs 11/28/23 20:44 11/28/23 20:44 Labs: Laboratory Results - last 48 hr 11/28/23 11/29/23 11/30/23 20:44 04:55 09:28 WBC 10.8 RBC 4.65 Hgb 13.2 L Hct 40.6 L MCV 87.3 MCH 28.4 MCHC 32.5 RDW 13.2 Plt Count 246 MPV 8.5 L Immature Gran % (Auto) 0.3 Neut % (Auto) 74.5 H Lymph % (Auto) 12.7 L [place] % (Auto) 11.7 H Eos % (Auto) 0.3 Baso % (Auto) 0.5 Lymph # (Auto) 1.4 [place] # (Auto) 1.3 H Eos # (Auto) 0.0 Baso # (Auto) 0.1 Abs Immat Gran (auto) 0.03 Absolute Neuts (auto) 8.1 Absolute Nucleated RBC 0.000 Nucleated RBC % (auto) 0.0 Sodium 139 Potassium 4.1 Chloride 103 Carbon Dioxide 25 Anion Gap 15 BUN 14 Creatinine 0.79 Estim Creat Clear Calc 110.5 Estimated GFR > 60 Random Glucose 108 Estimat Average Glucose 108 Hemoglobin A1c % 5.4 Calcium 9.0 Magnesium 2.0 Total Bilirubin 0.5 AST 28 ALT 25 Alkaline Phosphatase 68 Total Protein 7.3 Albumin 3.6 Triglycerides 75 Cholesterol 124 LDL Cholesterol, Calc 73 HDL Cholesterol 36 L Vitamin B12 433 Folate 16.3 TSH 0.18 L Free T4 0.92 Urine Color Dark Yellow Urine Appearance Cloudy Urine pH 5.5 Ur Specific [place] >= 1.030 H Urine Protein 30 (1+) H Urine Glucose (UA) Negative Urine Ketones Negative Urine Blood Negative Urine Nitrite Negative Ur Leukocyte Esterase Negative Urine RBC 0-2 Urine WBC 0-5 Ur Squamous Epith Cells 3-5 Calcium Oxalate Crystal Present Urine Bacteria None Seen Hyaline Casts 3-5 Salicylates < 5.0 L Urine Opiates Screen POSITIVE H Ur Buprenorphine Scrn Not Detected Ur Oxycodone Screen Not Detected Urine Methadone Screen Positive H Urine Fentanyl Screen POSITIVE H Acetaminophen < 3 Ur Barbiturates Screen Not Detected Ur Phencyclidine Scrn Not Detected Ur Amphetamines Screen Not Detected U Benzodiazepines Scrn POSITIVE H Urine Cocaine Screen POSITIVE H U Marijuana (THC) Screen POSITIVE H Ethyl Alcohol < 10 Mental Status Exam Mental Status Exam Patient Appearance: Unkempt Level of Consciousness: Awake and Alert Patient Behavior: Appropriate Mood Description: Anxious Affect Description: Anxious Speech Pattern: Clear Medications Medications Current Medications Acetaminophen (Acetaminophen 325 Mg Tablet) 650 mg PO Q6H PRN PRN Reason: Headache/Pain Scale (1-10) Last Admin: 11/30/23 01:26 Dose: 650 mg Al Hydroxide/Mg Hydroxide (Magnesium Hydrox/Alum Hydrox 30 Ml Oral.Susp) 30 ml PO Q6H PRN PRN Reason: Heartburn/Nausea Albuterol Sulfate (Albuterol Sulfate 90 Mcg 8 Gm Inhaler) 1 puff INHALE QID PRN PRN Reason: shortness of breath or wheezing Clonazepam (Clonazepam 1 Mg Tablet) 1 mg PO BID PRN PRN Reason: anxiety Last Admin: 11/30/23 01:26 Dose: 1 mg Clonidine HCl (Clonidine Hcl 0.1 Mg Tablet) 0.1 mg PO Q4H PRN; Protocol PRN Reason: anxiety/w/drawal symptoms Last Admin: 11/30/23 06:34 Dose: 0.1 mg Cyclobenzaprine HCl (Cyclobenzaprine Hcl 10 Mg Tablet) 10 mg PO Q6H PRN PRN Reason: muscle aches Last Admin: 11/30/23 01:26 Dose: 10 mg Dicyclomine HCl (Dicyclomine Hcl 10 Mg Capsule) 10 mg PO QID PRN PRN Reason: stomach cramping Last Admin: 11/29/23 15:41 Dose: 10 mg Folic Acid (Folic Acid 1 Mg Tablet) 1 mg PO DAILY [facility] Last Admin: 11/30/23 08:42 Dose: 1 mg Hydroxyzine HCl (Hydroxyzine Hcl 25 Mg Tablet) 25 mg PO Q6H PRN PRN Reason: Anxiety Last Admin: 11/30/23 06:34 Dose: 25 mg Loperamide HCl (Loperamide Hcl 2 Mg Capsule) 2 mg PO Q6H PRN PRN Reason: Loose Stool Magnesium Hydroxide (Milk Of Magnesia 30 Ml Oral.Susp) 30 ml PO DAILY PRN PRN Reason: Constipation Methadone HCl (Methadone Hcl 20 Mg/2 Ml Oral.Conc) 40 mg PO DAILY [facility] Last Admin: 11/30/23 08:43 Dose: 40 mg Mirtazapine (Mirtazapine 7.5 Mg Tablet) 7.5 mg PO BEDTIME [facility] Last Admin: 11/29/23 19:48 Dose: 7.5 mg Multivitamins/Vitamin C (Multivitamin Tablet) 1 tab PO DAILY [facility] Last Admin: 11/30/23 08:42 Dose: 1 tab Paroxetine HCl (Paroxetine Hcl 20 Mg Tablet) 20 mg PO DAILY [facility] Last Admin: 11/30/23 08:41 Dose: 20 mg Thiamine HCl (Thiamine Hcl 100 Mg Tablet) 100 mg PO DAILY [facility] Last Admin: 11/30/23 08:42 Dose: 100 mg Trazodone HCl (Trazodone Hcl 50 Mg Tablet) 50 mg PO BEDTIME [id number] PRN PRN Reason: Insomnia Last Admin: 11/29/23 19:48 Dose: 50 mg Allergies Allergies Allergy/AdvReac Type Severity Reaction Status Date / Time amoxicillin [Amoxicillin] Allergy Mild SWELLING Verified 11/28/23 19:21 Penicillins Allergy Mild SWELLING Verified 11/28/23 19:21 penicillin V Allergy Unknown unknown Verified 11/28/23 19:21 Doxycycline Hyclate Allergy Unknown unknown Uncoded 10/18/23 19:17 Assessment & Plan Assessment & Plan (1) Opioid use disorder: Status: Acute Code(s): F11.90 - Opioid use, unspecified, uncomplicated Assessment and Plan: * additional 10mg methadone today and 5mg later this afternoon (total of 55mg) * tomorrow 65mg (11/30) * Sunday (12/01) 75mg * patient has previously tolerated higher doses of methadone, and while he has not received methadone in several weeks, he continued to use fentanyl with regularity so concern for decreased tolerance is much less. * if sedation is ever noted, consider other medications that may be contributing to this presentation and/or hold dose and consult this play writer * Total time managing care of this patient today _25___ minutes. [facility] Past Medical History Medical History (Updated 11/29/23 @ 18:47 by Eric Draper MD) Cocaine use disorder Opioid use disorder MDD (major depressive disorder), recurrent severe, without psychosis Anxiety and depression Anxiety Family History Family History Father COPD (chronic obstructive pulmonary disease) Mother Cancer Maternal Uncle Mental health disorder Paternal Uncle Mental health disorder Surgical History Surgical History No pertinent past surgical history Social History Social History Household Members: None Housing: Homeless Do you presently have visiting nurse or other home services: No Alcohol intake: never Patient Tobacco Use Status: Current everyday Tobacco user Tobacco use type: Cigarette Cigarette Packs Per Day: 1 Cigarettes Per Day: 10 Smoked in Last 30 Days: Yes e-Cigarette/Vaping Use: Currently Using Patient Interested in Nicotine Replacement: No Second Hand Smoke Exposure: Yes Use of substances other than those prescribed or required for medical reasons: Yes Substance Use Type: Crack/Cocaine, Heroin, Marijuana, Opiates and Other Substance Use Frequency: Daily Last Used Substance: Just Prior to Admission Currently Displaying Signs/Symptoms of Drug Intoxication Withdrawal: Yes Advance Directives: No Advance Directives Information Provided: No Suicidal Behavior: Pre-occupation with Current/Past Psychiatric Disorders: Substance abuse Do you have thoughts of harming others: None Do you have a plan to hurt others: No Plan Recently lost weight without trying: Yes How much weight loss: 14-23 pounds Nutrition Risks: No Nutritional Risk service: No Current occupational status: unemployed Sexual orientation: Straight/Heterosexual Cognitive needs: No Hearing needs: No Vision needs: No
--- NOTE | 2023-11-30 14:36 | P.PNPSI_ITS ---
Subjective Subjective Date of Service: 11/30/23 Reason For Visit: depression, polysubstance abuse disorder, opiate Interim History: Keeping to self. guarded. Pt reports feeling anxious and depressed today; pt stated, everything in general is making me depressed . Pt reports he is not interested in going to a substance abuse program but want to be connected with a therapist and methadone clinic . Pt reports sleeping and eating well. denies SI/HI/VH/AH. Medication Compliance: Yes Side effects from medications: No Review of Systems Constitutional: Reports as per HPI Eyes: Reports as per HPI Reports as per HPI Cardiovascular: Reports as per HPI Respiratory: Reports as per HPI Gastrointestinal: Reports as per HPI Genitourinary: Reports as per HPI Musculoskeletal: Reports as per HPI Skin/Breast: Reports as per HPI Reports as per HPI Psychiatric: Reports as per HPI Endocrine: Reports as per HPI Hematologic/Lymphatic: Reports as per HPI Allergic/Immunologic: Reports as per HPI Mental Status Exam Mental Status Exam Narrative: Pt is alert and oriented; behavior is cooperative and calm; dressed in casual attire, unkempt; mood is described as depressed and anxious ; eye contact appropriate; Speech is normal rate, volume and prosody and not pressured; thought process is organized and goal directed; Thought content is on tx; otherwise pertinent to relevant topics and without any delusional content, paranoid ideations or grandiosity; denies SI/HI/VH/AH. Diagnostics Vital Signs (24Hr): Vital Signs - 24 hr 11/29/23 15:40 11/29/23 19:43 11/29/23 19:48 Temperature 97.4 F Pulse Rate 67 Respiratory Rate 18 Blood Pressure 120/82 97/55 L 97/55 L Pulse Oximetry 98 Oxygen Delivery Method Room Air 11/30/23 01:26 11/30/23 06:34 11/30/23 08:00 Temperature 98.2 F Pulse Rate 62 Respiratory Rate 16 Blood Pressure 112/78 98/66 99/51 L Pulse Oximetry 98 Oxygen Delivery Method Room Air BMI result Body Mass Index 16.8 Labs 11/28/23 20:44 11/28/23 20:44 Labs: Laboratory Results - last 48 hr 11/28/23 11/29/23 11/30/23 20:44 04:55 09:28 WBC 10.8 RBC 4.65 Hgb 13.2 L Hct 40.6 L MCV 87.3 MCH 28.4 MCHC 32.5 RDW 13.2 Plt Count 246 MPV 8.5 L Immature Gran % (Auto) 0.3 Neut % (Auto) 74.5 H Lymph % (Auto) 12.7 L [place] % (Auto) 11.7 H Eos % (Auto) 0.3 Baso % (Auto) 0.5 Lymph # (Auto) 1.4 [place] # (Auto) 1.3 H Eos # (Auto) 0.0 Baso # (Auto) 0.1 Abs Immat Gran (auto) 0.03 Absolute Neuts (auto) 8.1 Absolute Nucleated RBC 0.000 Nucleated RBC % (auto) 0.0 Sodium 139 Potassium 4.1 Chloride 103 Carbon Dioxide 25 Anion Gap 15 BUN 14 Creatinine 0.79 Estim Creat Clear Calc 110.5 Estimated GFR > 60 Random Glucose 108 Estimat Average Glucose 108 Hemoglobin A1c % 5.4 Calcium 9.0 Magnesium 2.0 Total Bilirubin 0.5 AST 28 ALT 25 Alkaline Phosphatase 68 Total Protein 7.3 Albumin 3.6 Triglycerides 75 Cholesterol 124 LDL Cholesterol, Calc 73 HDL Cholesterol 36 L Vitamin B12 433 Folate 16.3 TSH 0.18 L Free T4 0.92 Urine Color Dark Yellow Urine Appearance Cloudy Urine pH 5.5 Ur Specific [place] >= 1.030 H Urine Protein 30 (1+) H Urine Glucose (UA) Negative Urine Ketones Negative Urine Blood Negative Urine Nitrite Negative Ur Leukocyte Esterase Negative Urine RBC 0-2 Urine WBC 0-5 Ur Squamous Epith Cells 3-5 Calcium Oxalate Crystal Present Urine Bacteria None Seen Hyaline Casts 3-5 Salicylates < 5.0 L Urine Opiates Screen POSITIVE H Ur Buprenorphine Scrn Not Detected Ur Oxycodone Screen Not Detected Urine Methadone Screen Positive H Urine Fentanyl Screen POSITIVE H Acetaminophen < 3 Ur Barbiturates Screen Not Detected Ur Phencyclidine Scrn Not Detected Ur Amphetamines Screen Not Detected U Benzodiazepines Scrn POSITIVE H Urine Cocaine Screen POSITIVE H U Marijuana (THC) Screen POSITIVE H Ethyl Alcohol < 10 Medications Medications Current Medications Acetaminophen (Acetaminophen 325 Mg Tablet) 650 mg PO Q6H PRN PRN Reason: Headache/Pain Scale (1-10) Last Admin: 11/30/23 13:30 Dose: 650 mg Al Hydroxide/Mg Hydroxide (Magnesium Hydrox/Alum Hydrox 30 Ml Oral.Susp) 30 ml PO Q6H PRN PRN Reason: Heartburn/Nausea Albuterol Sulfate (Albuterol Sulfate 90 Mcg 8 Gm Inhaler) 1 puff INHALE QID PRN PRN Reason: shortness of breath or wheezing Clonazepam (Clonazepam 1 Mg Tablet) 1 mg PO BID PRN PRN Reason: anxiety Last Admin: 11/30/23 01:26 Dose: 1 mg Clonidine HCl (Clonidine Hcl 0.1 Mg Tablet) 0.1 mg PO Q4H PRN; Protocol PRN Reason: anxiety/w/drawal symptoms Last Admin: 11/30/23 06:34 Dose: 0.1 mg Cyclobenzaprine HCl (Cyclobenzaprine Hcl 10 Mg Tablet) 10 mg PO Q6H PRN PRN Reason: muscle aches Last Admin: 11/30/23 01:26 Dose: 10 mg Dicyclomine HCl (Dicyclomine Hcl 10 Mg Capsule) 10 mg PO QID PRN PRN Reason: stomach cramping Last Admin: 11/29/23 15:41 Dose: 10 mg Folic Acid (Folic Acid 1 Mg Tablet) 1 mg PO DAILY [facility] Last Admin: 11/30/23 08:42 Dose: 1 mg Hydroxyzine HCl (Hydroxyzine Hcl 25 Mg Tablet) 25 mg PO Q6H PRN PRN Reason: Anxiety Last Admin: 11/30/23 06:34 Dose: 25 mg Loperamide HCl (Loperamide Hcl 2 Mg Capsule) 2 mg PO Q6H PRN PRN Reason: Loose Stool Magnesium Hydroxide (Milk Of Magnesia 30 Ml Oral.Susp) 30 ml PO DAILY PRN PRN Reason: Constipation Methadone HCl (Methadone Hcl 20 Mg/2 Ml Oral.Conc) 40 mg PO DAILY [facility] Last Admin: 11/30/23 08:43 Dose: 40 mg Mirtazapine (Mirtazapine 7.5 Mg Tablet) 7.5 mg PO BEDTIME [facility] Last Admin: 11/29/23 19:48 Dose: 7.5 mg Multivitamins/Vitamin C (Multivitamin Tablet) 1 tab PO DAILY [facility] Last Admin: 11/30/23 08:42 Dose: 1 tab Paroxetine HCl (Paroxetine Hcl 20 Mg Tablet) 20 mg PO DAILY [facility] Last Admin: 11/30/23 08:41 Dose: 20 mg Thiamine HCl (Thiamine Hcl 100 Mg Tablet) 100 mg PO DAILY [facility] Last Admin: 11/30/23 08:42 Dose: 100 mg Trazodone HCl (Trazodone Hcl 50 Mg Tablet) 50 mg PO BEDTIME MRX1 PRN PRN Reason: Insomnia Last Admin: 11/29/23 19:48 Dose: 50 mg Allergies Allergies Allergy/AdvReac Type Severity Reaction Status Date / Time amoxicillin [Amoxicillin] Allergy Mild SWELLING Verified 11/28/23 19:21 Penicillins Allergy Mild SWELLING Verified 11/28/23 19:21 penicillin V Allergy Unknown unknown Verified 11/28/23 19:21 Doxycycline Hyclate Allergy Unknown unknown Uncoded 10/18/23 19:17 Assessment & Plan Assessment & Plan (1) MDD (major depressive disorder), recurrent severe, without psychosis: Status: Acute Code(s): F33.2 - Major depressive disorder, recurrent severe without psychotic features (2) Opioid use disorder: Status: Acute Code(s): F11.90 - Opioid use, unspecified, uncomplicated Assessment and Plan: * additional 10mg methadone today and 5mg later this afternoon (total of 55mg) * tomorrow 65mg (11/30) * Sunday (12/01) 75mg * patient has previously tolerated higher doses of methadone, and while he has not received methadone in several weeks, he continued to use fentanyl with regularity so concern for decreased tolerance is much less. * if sedation is ever noted, consider other medications that may be contributing to this presentation and/or hold dose and consult this bond underwriter * (3) Cocaine use disorder: Status: Acute Code(s): F14.10 - Cocaine abuse, uncomplicated Plan Patient is a 43-year-old male with history of depression/anxiety, opiate and cocaine use disorder, on methadone who self presents for worsening depression and with vague SI. 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 Unfortunately his father about a year ago which quickly worsened his depression; his stepfather soon after which was also upsetting. Patient tried hold onto the apartment where the 2 had been living but could not continue rent and has been homeless for the past several months with depression worsening. Now homeless, without an address, it was very difficult for patient to get PT 1 transportation and would frequently miss his methadone appointments, which would result in his methadone dose being lowered and him using more heroin and cocaine to compensate. For a short period of time he was able to get to the methadone clinic for about 8 days in a row and his dose got pushed up to 80 mg which was helpful however transportation again fell through and he has missed the past 2 weeks. Patient depression worsened still on this week he started feeling like there is no point to life, hopeless and so self presented. Denies history of manic type episodes or behaviors; denies AVH; denies alcohol or benzo abuse. Uses IV heroin/fentanyl and cocaine however says he never shares needles. Formulation/clinical reasoning: -Patient has a history of depression/anxiety clearly worsened by ongoing severe substance abuse. -Patient has been on low dose of paroxetine and Remeron for several years and it is unclear why these have never been titrated. He agrees to increasing paroxetine at this time. -Patient asks to be back on gabapentin which he says is for foot neuropathy and leg spasms; bond underwriter however could only find 1 script for this over the past 2 years and that was a script for only 1 week; bond underwriter discussed that this will likely be best for him to discuss with his PCP to which patient agreed -patient was doing better on higher dose of methadone; will titrate Plan: CV Q 15 minute checks Increase paroxetine to 20 mg daily Continue mirtazapine 7.5 mg q.h.s.; however may eventually increase this as well Increased methadone to 40 mg daily; recommend titrating by 10 mg a day to better ensure sobriety once discharged Will not restart gabapentin at this time; will defer to patient's PCP as bond underwriter can not find any consistent scripts for this medication PRNs for withdrawal, including clonidine, Bentyl, Flexeril, Imodium Patient cachectic; ordered Ensure, vitamins, folic acid, thiamine 11/29: Keeping to self. guarded. Pt reports feeling anxious and depressed today; pt stated, everything in general is making me depressed . Pt reports he is not interested in going to a substance abuse program but want to be connected with a therapist and methadone clinic . Pt reports sleeping and eating well. denies SI/HI/VH/AH. continue current tx plan. Patient educated on: diagnosis, medication risk/benefits, substance abuse and therapeutic strategies Informed Consent: understands Reason for continued inpatient stay Substantial Risk for: med/psych decompensation Time Spent With Patient Time: Total time managing care of this patient today _20___ minutes.
[2023-11-30] MEDS: Mirtazapine 7.5 MG TABLET PO (20:43)
[2023-12-01] VITALS (7 sets, daily range): BP systolic 106–194; BP diastolic 54–86; PULSE 59–100; RESP 18–20; TEMP 36.4–36.7; O2SAT 99
[2023-12-01] MEDS: clonazePAM 1 MG TABLET PO ×2 (01:47→08:31)
[2023-12-01] MEDS: Cyclobenzaprine HCl 10 MG TABLET PO ×3 (06:16→23:48)
--- NOTE | 2023-12-01 08:03 | HO.PSYCHPN ---
Subjective Subjective Date of Service: 12/01/23 Reason For Visit: depression, polysubstance abuse disorder, opiate Interim History: Keeping to self. guarded. Pt reports feeling anxious and depressed today; pt stated, everything in general is making me depressed . Pt reports he is not interested in going to a substance abuse program but want to be connected with a therapist and methadone clinic . Pt reports sleeping and eating well. denies SI/HI/VH/AH. pt reports body aches and asks that gabapentin be restarted; explaned the rationale of not restarting. Review of Systems Review of Systems Yes all other systems are reviewed and are negative Constitutional: Reports as per HPI Eyes: Reports as per HPI Reports as per HPI Cardiovascular: Reports as per HPI Respiratory: Reports as per HPI Gastrointestinal: Reports as per HPI Genitourinary: Reports as per HPI Musculoskeletal: Reports as per HPI Skin/Breast: Reports as per HPI Reports as per HPI Psychiatric: Reports as per HPI Endocrine: Reports as per HPI Hematologic/Lymphatic: Reports as per HPI Allergic/Immunologic: Reports as per HPI Mental Status Exam Mental Status Exam Narrative: Pt is alert and oriented; behavior is cooperative and calm; dressed in casual attire, unkempt; mood is described as depressed and anxious ; eye contact appropriate; Speech is normal rate, volume and prosody and not pressured; thought process is organized and goal directed; Thought content is on tx; otherwise pertinent to relevant topics and without any delusional content, paranoid ideations or grandiosity; denies SI/HI/VH/AH. Patient Appearance: Unkempt Level of Consciousness: Awake and Alert Patient Behavior: Appropriate Mood Description: Anxious Affect Description: Anxious Speech Pattern: Clear Diagnostics Vital Signs (24Hr): Vital Signs - 24 hr 11/30/23 18:44 11/30/23 18:47 11/30/23 20:00 Temperature 97.8 F 97.6 F Pulse Rate 60 55 Respiratory Rate 16 17 Blood Pressure 99/53 L 99/53 L 102/56 L Pulse Oximetry 100 98 Oxygen Delivery Method Room Air Room Air BMI result Body Mass Index 16.8 Labs 11/28/23 20:44 11/28/23 20:44 Labs: Laboratory Results - last 48 hr 11/30/23 09:28 Estimat Average Glucose 108 Hemoglobin A1c % 5.4 Magnesium 2.0 Triglycerides 75 Cholesterol 124 LDL Cholesterol, Calc 73 HDL Cholesterol 36 L Vitamin B12 433 Folate 16.3 TSH 0.18 L Free T4 0.92 Medications Medications Current Medications Acetaminophen (Acetaminophen 325 Mg Tablet) 650 mg PO Q6H PRN PRN Reason: Headache/Pain Scale (1-10) Last Admin: 11/30/23 13:30 Dose: 650 mg Al Hydroxide/Mg Hydroxide (Magnesium Hydrox/Alum Hydrox 30 Ml Oral.Susp) 30 ml PO Q6H PRN PRN Reason: Heartburn/Nausea Albuterol Sulfate (Albuterol Sulfate 90 Mcg 8 Gm Inhaler) 1 puff INHALE QID PRN PRN Reason: shortness of breath or wheezing Clonazepam (Clonazepam 1 Mg Tablet) 1 mg PO BID PRN PRN Reason: anxiety Last Admin: 12/01/23 01:47 Dose: 1 mg Clonidine HCl (Clonidine Hcl 0.1 Mg Tablet) 0.1 mg PO Q4H PRN; Protocol PRN Reason: anxiety/w/drawal symptoms Last Admin: 11/30/23 18:47 Dose: 0.1 mg Cyclobenzaprine HCl (Cyclobenzaprine Hcl 10 Mg Tablet) 10 mg PO Q6H PRN PRN Reason: muscle aches Last Admin: 12/01/23 06:16 Dose: 10 mg Dicyclomine HCl (Dicyclomine Hcl 10 Mg Capsule) 10 mg PO QID PRN PRN Reason: stomach cramping Last Admin: 11/29/23 15:41 Dose: 10 mg Folic Acid (Folic Acid 1 Mg Tablet) 1 mg PO DAILY [facility] Last Admin: 11/30/23 08:42 Dose: 1 mg Hydroxyzine HCl (Hydroxyzine Hcl 25 Mg Tablet) 25 mg PO Q6H PRN PRN Reason: Anxiety Last Admin: 11/30/23 06:34 Dose: 25 mg Loperamide HCl (Loperamide Hcl 2 Mg Capsule) 2 mg PO Q6H PRN PRN Reason: Loose Stool Magnesium Hydroxide (Milk Of Magnesia 30 Ml Oral.Susp) 30 ml PO DAILY PRN PRN Reason: Constipation Methadone HCl (Methadone Hcl 20 Mg/2 Ml Oral.Conc) 65 mg PO ONCE ONE Stop: 12/01/23 09:01 Methadone HCl (Methadone Hcl 20 Mg/2 Ml Oral.Conc) 75 mg PO DAILY [facility] Mirtazapine (Mirtazapine 7.5 Mg Tablet) 7.5 mg PO BEDTIME [facility] Last Admin: 11/30/23 20:43 Dose: 7.5 mg Multivitamins/Vitamin C (Multivitamin Tablet) 1 tab PO DAILY [facility] Last Admin: 11/30/23 08:42 Dose: 1 tab Paroxetine HCl (Paroxetine Hcl 20 Mg Tablet) 20 mg PO DAILY [facility] Last Admin: 11/30/23 08:41 Dose: 20 mg Thiamine HCl (Thiamine Hcl 100 Mg Tablet) 100 mg PO DAILY [facility] Last Admin: 11/30/23 08:42 Dose: 100 mg Trazodone HCl (Trazodone Hcl 50 Mg Tablet) 50 mg PO BEDTIME MRX1 PRN PRN Reason: Insomnia Last Admin: 11/29/23 19:48 Dose: 50 mg Allergies Allergies Allergy/AdvReac Type Severity Reaction Status Date / Time amoxicillin [Amoxicillin] Allergy Mild SWELLING Verified 11/28/23 19:21 Penicillins Allergy Mild SWELLING Verified 11/28/23 19:21 penicillin V Allergy Unknown unknown Verified 11/28/23 19:21 Doxycycline Hyclate Allergy Unknown unknown Uncoded 10/18/23 19:17 Assessment & Plan Assessment & Plan (1) Opioid use disorder: Status: Acute Code(s): F11.90 - Opioid use, unspecified, uncomplicated Assessment and Plan: additional 10mg methadone today and 5mg later this afternoon (total of 55mg) tomorrow 65mg (11/30) Sunday (12/01) 75mg patient has previously tolerated higher doses of methadone, and while he has not received methadone in several weeks, he continued to use fentanyl with regularity so concern for decreased tolerance is much less. if sedation is ever noted, consider other medications that may be contributing to this presentation and/or hold dose and consult this expert medical writer Plan encourage use or prn tylenol and use coping skills for distraction when discomfort. Patient educated on: diagnosis, medication risk/benefits, substance abuse and therapeutic strategies Reason for continued inpatient stay Substantial Risk for: harm to self and inability to function Time Spent With Patient Time: Total time managing care of this patient today ____ minutes.
[2023-12-01] MEDS: methADONE HCl 20 MG/2 ML ORAL.CONC 65 MG PO (08:05)
[2023-12-01] MEDS: Acetaminophen 325 MG TABLET 650 MG PO ×3 (08:06→23:49)
[2023-12-01] MEDS: PARoxetine HCL 20 MG TABLET PO (08:08)
[2023-12-01] MEDS: Multivitamin TABLET 1 TAB PO (08:08)
[2023-12-01] MEDS: Dicyclomine HCl 10 MG CAPSULE PO (08:08)
[2023-12-01] MEDS: Folic Acid 1 MG TABLET PO (08:08)
[2023-12-01] MEDS: hydrOXYzine HCL 25 MG TABLET PO ×2 (08:09→17:12)
[2023-12-01] MEDS: Thiamine HCL 100 MG TABLET PO (08:10)
[2023-12-01] MEDS: cloNIDine HCL 0.1 MG TABLET PO ×2 (08:31→17:12)
[2023-12-01] MEDS: traZODone HCL 50 MG TABLET PO ×2 (21:18→23:48)
[2023-12-01] MEDS: Mirtazapine 7.5 MG TABLET PO (21:19)
[2023-12-02] MEDS: clonazePAM 1 MG TABLET PO (05:56)
[2023-12-02] MEDS: cloNIDine HCL 0.1 MG TABLET PO (05:58)
[2023-12-02 08:00] VITALS: BP 98/50; PULSE 62; RESP 18; TEMP 36.6; O2SAT 99
[2023-12-02 08:35] VITALS: BP 101/58; PULSE 68; O2SAT 99
[2023-12-02] MEDS: Folic Acid 1 MG TABLET PO (08:36)
[2023-12-02] MEDS: PARoxetine HCL 20 MG TABLET PO (08:36)
[2023-12-02] MEDS: methADONE HCl 20 MG/2 ML ORAL.CONC 75 MG PO (08:36)
[2023-12-02] MEDS: Multivitamin TABLET 1 TAB PO (08:36)
[2023-12-02] MEDS: Thiamine HCL 100 MG TABLET PO (08:36)
--- NOTE | 2023-12-02 10:24 | P.PNPSI_ITS ---
Subjective Subjective Date of Service: 12/02/23 Reason For Visit: depression, polysubstance abuse disorder, opiate Interim History: Patient reports anxiety, not sleeping well. reports body pain reports his back hurts and his legs her. He asks to restart the gabapentin and asks for seroquel but seroqule affect QTC and he is on other meds that also prolong QTC. Medication Compliance: Yes Side effects from medications: No Review of Systems Constitutional: Reports as per HPI Eyes: Reports as per HPI Reports as per HPI Cardiovascular: Reports as per HPI Respiratory: Reports as per HPI Gastrointestinal: Reports as per HPI Genitourinary: Reports as per HPI Musculoskeletal: Reports as per HPI Skin/Breast: Reports as per HPI Reports as per HPI Psychiatric: Reports as per HPI Endocrine: Reports as per HPI Hematologic/Lymphatic: Reports as per HPI Allergic/Immunologic: Reports as per HPI Mental Status Exam Mental Status Exam Narrative: Pt is alert and oriented; behavior is cooperative. dressed in casual attire, unkempt; mood is described as depressed and anxious ; eye contact appropriate; Speech is normal rate, volume and prosody and not pressured; thought process is organized and goal directed; Thought content is on tx; otherwise pertinent to relevant topics and without any delusional content, paranoid ideations or grandiosity; denies SI/HI/VH/AH. Patient Appearance: Unkempt Level of Consciousness: Awake and Alert Patient Behavior: Appropriate Mood Description: Anxious Affect Description: Anxious Speech Pattern: Clear Diagnostics Vital Signs (24Hr): Vital Signs - 24 hr 12/01/23 17:12 12/01/23 20:00 12/02/23 08:00 Temperature 97.6 F 97.8 F Pulse Rate 63 62 Respiratory Rate 18 18 Blood Pressure 106/60 106/54 L 98/50 L Pulse Oximetry 99 99 Oxygen Delivery Method Room Air Room Air 12/02/23 08:35 Temperature Pulse Rate 68 Respiratory Rate Blood Pressure 101/58 L Pulse Oximetry 99 Oxygen Delivery Method Room Air BMI result Body Mass Index 16.8 Labs 11/28/23 20:44 11/28/23 20:44 Labs: Laboratory Results - last 48 hr 11/30/23 09:28 Vitamin B12 433 Folate 16.3 Medications Medications Current Medications Acetaminophen (Acetaminophen 325 Mg Tablet) 650 mg PO Q6H PRN PRN Reason: Headache/Pain Scale (1-10) Last Admin: 12/01/23 23:49 Dose: 650 mg Al Hydroxide/Mg Hydroxide (Magnesium Hydrox/Alum Hydrox 30 Ml Oral.Susp) 30 ml PO Q6H PRN PRN Reason: Heartburn/Nausea Albuterol Sulfate (Albuterol Sulfate 90 Mcg 8 Gm Inhaler) 1 puff INHALE QID PRN PRN Reason: shortness of breath or wheezing Clonazepam (Clonazepam 1 Mg Tablet) 1 mg PO BID PRN PRN Reason: anxiety Last Admin: 12/02/23 05:56 Dose: 1 mg Clonidine HCl (Clonidine Hcl 0.1 Mg Tablet) 0.1 mg PO Q4H PRN; Protocol PRN Reason: anxiety/w/drawal symptoms Last Admin: 12/02/23 05:58 Dose: 0.1 mg Cyclobenzaprine HCl (Cyclobenzaprine Hcl 10 Mg Tablet) 10 mg PO Q6H PRN PRN Reason: muscle aches Last Admin: 12/01/23 23:48 Dose: 10 mg Dicyclomine HCl (Dicyclomine Hcl 10 Mg Capsule) 10 mg PO QID PRN PRN Reason: stomach cramping Last Admin: 12/01/23 08:08 Dose: 10 mg Folic Acid (Folic Acid 1 Mg Tablet) 1 mg PO DAILY [facility] [place] Last Admin: 12/02/23 08:36 Dose: 1 mg Hydroxyzine HCl (Hydroxyzine Hcl 25 Mg Tablet) 25 mg PO Q6H PRN PRN Reason: Anxiety Last Admin: 12/01/23 17:12 Dose: 25 mg Loperamide HCl (Loperamide Hcl 2 Mg Capsule) 2 mg PO Q6H PRN PRN Reason: Loose Stool Magnesium Hydroxide (Milk Of Magnesia 30 Ml Oral.Susp) 30 ml PO DAILY PRN PRN Reason: Constipation Methadone HCl (Methadone Hcl 20 Mg/2 Ml Oral.Conc) 75 mg PO DAILY [facility] Last Admin: 12/02/23 08:36 Dose: 75 mg Mirtazapine (Mirtazapine 7.5 Mg Tablet) 7.5 mg PO BEDTIME [facility] [place] Last Admin: 12/01/23 21:19 Dose: 7.5 mg Multivitamins/Vitamin C (Multivitamin Tablet) 1 tab PO DAILY [facility] [place] Last Admin: 12/02/23 08:36 Dose: 1 tab Paroxetine HCl (Paroxetine Hcl 20 Mg Tablet) 20 mg PO DAILY [facility] [place] Last Admin: 12/02/23 08:36 Dose: 20 mg Thiamine HCl (Thiamine Hcl 100 Mg Tablet) 100 mg PO DAILY [facility] [place] Last Admin: 12/02/23 08:36 Dose: 100 mg Trazodone HCl (Trazodone Hcl 50 Mg Tablet) 50 mg PO BEDTIME MRX1 PRN PRN Reason: Insomnia Last Admin: 12/01/23 23:48 Dose: 50 mg Allergies Allergies Allergy/AdvReac Type Severity Reaction Status Date / Time amoxicillin [Amoxicillin] Allergy Mild SWELLING Verified 11/28/23 19:21 Penicillins Allergy Mild SWELLING Verified 11/28/23 19:21 penicillin V Allergy Unknown unknown Verified 11/28/23 19:21 Doxycycline Hyclate Allergy Unknown unknown Uncoded 10/18/23 19:17 Assessment & Plan Assessment & Plan (1) Opioid use disorder: Status: Acute Code(s): F11.90 - Opioid use, unspecified, uncomplicated Assessment and Plan: * additional 10mg methadone today and 5mg later this afternoon (total of 55mg) * tomorrow 65mg (11/30) * Sunday (12/01) 75mg * patient has previously tolerated higher doses of methadone, and while he has not received methadone in several weeks, he continued to use fentanyl with regularity so concern for decreased tolerance is much less. * if sedation is ever noted, consider other medications that may be contributing to this presentation and/or hold dose and consult this report writer * Plan 12/01 encourage use or prn tylenol and use coping skills for distraction when discomfort. start mg oxide 440mg at bedtime start lidocaine patch on back start aspercreme bid prn for leg pain Patient educated on: diagnosis and medication risk/benefits Informed Consent: understands and further education needed Reason for continued inpatient stay Substantial Risk for: harm to self and inability to function Time Spent With Patient Time: Total time managing care of this patient today ____ minutes.
--- NOTE | 2023-12-02 11:43 | MHC.RECOVRN ---
Met with pt to follow up regarding methadone titration. Pt awake, alert, easily engages in conversation. Appears comfortable. Pt reports he is feeling better with the 75 mg dose this morning. Pt reports he is experiencing pain related to neuropathy and is interested in restarting gabapentin. M5 provider made aware. Pt denies withdrawal symptoms. Pt denies questions or concerns for t/w.
[2023-12-02] MEDS: Cyclobenzaprine HCl 10 MG TABLET PO ×2 (13:55→20:07)
[2023-12-02] MEDS: hydrOXYzine HCL 25 MG TABLET PO (13:55)
[2023-12-02] MEDS: Acetaminophen 325 MG TABLET 650 MG PO (13:56)
[2023-12-02] MEDS: Lidocaine 4 % Patch ADH..PATCH 1 PATCH TRANSDERMA (16:25)
[2023-12-02 20:00] VITALS: BP 116/53; PULSE 68; RESP 16; TEMP 36.6; O2SAT 99
[2023-12-02] MEDS: Magnesium Oxide 400 MG TABLET PO (20:07)
[2023-12-02] MEDS: Dicyclomine HCl 10 MG CAPSULE PO (20:07)
[2023-12-02] MEDS: Mirtazapine 7.5 MG TABLET PO (20:07)
[2023-12-02] MEDS: traZODone HCL 50 MG TABLET PO (20:07)
[2023-12-03] VITALS (7 sets, daily range): BP systolic 95–118; BP diastolic 49–60; PULSE 64–76; RESP 16–17; TEMP 36.8–36.9; O2SAT 99–100
[2023-12-03] MEDS: Cyclobenzaprine HCl 10 MG TABLET PO ×2 (04:39→20:57)
[2023-12-03] MEDS: Acetaminophen 325 MG TABLET 650 MG PO (07:19)
[2023-12-03] MEDS: Lidocaine 4 % Patch ADH..PATCH 1 PATCH TRANSDERMA (08:43)
[2023-12-03] MEDS: methADONE HCl 20 MG/2 ML ORAL.CONC 75 MG PO (08:44)
[2023-12-03] MEDS: PARoxetine HCL 20 MG TABLET PO (08:44)
[2023-12-03] MEDS: Thiamine HCL 100 MG TABLET PO (08:44)
[2023-12-03] MEDS: Folic Acid 1 MG TABLET PO (08:44)
[2023-12-03] MEDS: Multivitamin TABLET 1 TAB PO (08:47)
[2023-12-03] MEDS: clonazePAM 1 MG TABLET PO ×2 (17:01→22:05)
[2023-12-03] MEDS: cloNIDine HCL 0.1 MG TABLET PO ×2 (17:02→20:59)
--- NOTE | 2023-12-03 17:57 | P.PNPSI_ITS ---
Subjective Subjective Date of Service: 12/03/23 Reason For Visit: depression, polysubstance abuse disorder, opiate Interim History: Patient reports less anxiety, still not sleeping well. very focused on restarting gabapentin; reports body pain reports his back hurts and his legs hurt; lidocain patch has helped. He accepted that I could not restart the gabapentin or seroqule explained affect QTC and he is on other meds that also prolong QTC. Medication Compliance: Yes Side effects from medications: No Attending Groups: Intermittent Review of Systems Acute medical concerns: No Review of Systems Review of Systems Yes all other systems are reviewed and are negative Constitutional: Reports as per HPI Eyes: Reports as per HPI Reports as per HPI Cardiovascular: Reports as per HPI Respiratory: Reports as per HPI Gastrointestinal: Reports as per HPI Genitourinary: Reports as per HPI Musculoskeletal: Reports as per HPI Skin/Breast: Reports as per HPI Reports as per HPI Psychiatric: Reports as per HPI Endocrine: Reports as per HPI Hematologic/Lymphatic: Reports as per HPI Allergic/Immunologic: Reports as per HPI Mental Status Exam Mental Status Exam Narrative: Pt is alert and oriented; behavior is cooperative. dressed in casual attire, unkempt; mood is described as depressed and anxious ; eye contact appropriate; Speech is normal rate, volume and prosody and not pressured; thought process is organized and goal directed; Thought content is on tx; otherwise pertinent to relevant topics and without any delusional content, paranoid ideations or grandiosity; denies SI/HI/VH/AH. Patient Appearance: Unkempt Level of Consciousness: Awake and Alert Patient Behavior: Appropriate Mood Description: Anxious Affect Description: Anxious Speech Pattern: Clear Diagnostics Vital Signs (24Hr): Vital Signs - 24 hr 12/02/23 20:00 12/03/23 08:00 12/03/23 17:02 Temperature 97.8 F 98.3 F Pulse Rate 68 73 Respiratory Rate 16 16 Blood Pressure 116/53 L 95/49 L 118/60 Pulse Oximetry 99 100 Oxygen Delivery Method Room Air Room Air BMI result Body Mass Index 16.8 Labs 11/28/23 20:44 11/28/23 20:44 Medications Medications Current Medications Acetaminophen (Acetaminophen 325 Mg Tablet) 650 mg PO Q6H PRN PRN Reason: Headache/Pain Scale (1-10) Last Admin: 12/03/23 07:19 Dose: 650 mg Al Hydroxide/Mg Hydroxide (Magnesium Hydrox/Alum Hydrox 30 Ml Oral.Susp) 30 ml PO Q6H PRN PRN Reason: Heartburn/Nausea Albuterol Sulfate (Albuterol Sulfate 90 Mcg 8 Gm Inhaler) 1 puff INHALE QID PRN PRN Reason: shortness of breath or wheezing Clonazepam (Clonazepam 1 Mg Tablet) 1 mg PO BID PRN PRN Reason: anxiety Last Admin: 12/03/23 17:01 Dose: 1 mg Clonidine HCl (Clonidine Hcl 0.1 Mg Tablet) 0.1 mg PO Q4H PRN; Protocol PRN Reason: anxiety/w/drawal symptoms Last Admin: 12/03/23 17:02 Dose: 0.1 mg Cyclobenzaprine HCl (Cyclobenzaprine Hcl 10 Mg Tablet) 10 mg PO Q6H PRN PRN Reason: muscle aches Last Admin: 12/03/23 04:39 Dose: 10 mg Dicyclomine HCl (Dicyclomine Hcl 10 Mg Capsule) 10 mg PO QID PRN PRN Reason: stomach cramping Last Admin: 12/02/23 20:07 Dose: 10 mg Folic Acid (Folic Acid 1 Mg Tablet) 1 mg PO DAILY [facility] Last Admin: 12/03/23 08:44 Dose: 1 mg Hydroxyzine HCl (Hydroxyzine Hcl 25 Mg Tablet) 25 mg PO Q6H PRN PRN Reason: Anxiety Last Admin: 12/02/23 13:55 Dose: 25 mg Lidocaine (Lidocaine 4 % Patch Adh..Patch) 1 patch TRANSDERMA DAILY [facility]; Protocol Last Admin: 12/03/23 08:43 Dose: 1 patch Loperamide HCl (Loperamide Hcl 2 Mg Capsule) 2 mg PO Q6H PRN PRN Reason: Loose Stool Magnesium Hydroxide (Milk Of Magnesia 30 Ml Oral.Susp) 30 ml PO DAILY PRN PRN Reason: Constipation Magnesium Oxide (Magnesium Oxide 400 Mg Tablet) 400 mg PO BEDTIME [facility] Last Admin: 12/02/23 20:07 Dose: 400 mg Methadone HCl (Methadone Hcl 20 Mg/2 Ml Oral.Conc) 75 mg PO DAILY [facility] Last Admin: 12/03/23 08:44 Dose: 75 mg Mirtazapine (Mirtazapine 7.5 Mg Tablet) 7.5 mg PO BEDTIME [facility] Last Admin: 05/26/24 20:07 Dose: 7.5 mg Multivitamins/Vitamin C (Multivitamin Tablet) 1 tab PO DAILY [facility] Last Admin: 12/03/23 08:47 Dose: 1 tab Paroxetine HCl (Paroxetine Hcl 20 Mg Tablet) 20 mg PO DAILY [facility] Last Admin: 12/03/23 08:44 Dose: 20 mg Thiamine HCl (Thiamine Hcl 100 Mg Tablet) 100 mg PO DAILY [facility] Last Admin: 12/03/23 08:44 Dose: 100 mg Trazodone HCl (Trazodone Hcl 50 Mg Tablet) 50 mg PO BEDTIME MRX1 PRN PRN Reason: Insomnia Last Admin: 12/02/23 20:07 Dose: 50 mg Trolamine Salicylate (Trolamine Salicylate 10 % Cream 85 Gm Tube) 1 appl TOPICAL BID PRN; Protocol PRN Reason: leg pain Allergies Allergies Allergy/AdvReac Type Severity Reaction Status Date / Time amoxicillin [Amoxicillin] Allergy Mild SWELLING Verified 11/28/23 19:21 Penicillins Allergy Mild SWELLING Verified 11/28/23 19:21 penicillin V Allergy Unknown unknown Verified 11/28/23 19:21 Doxycycline Hyclate Allergy Unknown unknown Uncoded 10/18/23 19:17 Assessment & Plan Assessment & Plan (1) Opioid use disorder: Status: Acute Code(s): F11.90 - Opioid use, unspecified, uncomplicated Assessment and Plan: * additional 10mg methadone today and 5mg later this afternoon (total of 55mg) * tomorrow 65mg (11/30) * Sunday (12/01) 75mg * patient has previously tolerated higher doses of methadone, and while he has not received methadone in several weeks, he continued to use fentanyl with regularity so concern for decreased tolerance is much less. * if sedation is ever noted, consider other medications that may be contributing to this presentation and/or hold dose and consult this group underwriter * Plan 12/01 encourage use or prn tylenol and use coping skills for distraction when discomfort. start mg oxide 440mg at bedtime start lidocaine patch on back start aspercreme bid prn for leg pain 12/02 continue tx plan Reason for continued inpatient stay Substantial Risk for: harm to self and inability to function Time Spent With Patient Time: Total time managing care of this patient today ____ minutes.
[2023-12-03] MEDS: Dicyclomine HCl 10 MG CAPSULE PO (20:57)
[2023-12-03] MEDS: hydrOXYzine HCL 25 MG TABLET PO (20:57)
[2023-12-03] MEDS: traZODone HCL 50 MG TABLET PO (20:57)
[2023-12-03] MEDS: Mirtazapine 7.5 MG TABLET PO (20:57)
[2023-12-03] MEDS: Magnesium Oxide 400 MG TABLET PO (20:59)
[2023-12-04 08:00] VITALS: BP 115/56; PULSE 90; RESP 18; TEMP 36.4; O2SAT 100
[2023-12-04] MEDS: Thiamine HCL 100 MG TABLET PO (08:03)
[2023-12-04] MEDS: Multivitamin TABLET 1 TAB PO (08:03)
[2023-12-04] MEDS: Folic Acid 1 MG TABLET PO (08:03)
[2023-12-04] MEDS: Lidocaine 4 % Patch ADH..PATCH 1 PATCH TRANSDERMA (08:03)
[2023-12-04] MEDS: methADONE HCl 20 MG/2 ML ORAL.CONC 75 MG PO (08:04)
[2023-12-04] MEDS: PARoxetine HCL 20 MG TABLET PO (08:04)
[2023-12-04] MEDS: cloNIDine HCL 0.1 MG TABLET PO ×2 (08:23→20:26)
[2023-12-04] MEDS: clonazePAM 1 MG TABLET PO ×2 (09:09→20:23)
--- NOTE | 2023-12-04 09:56 | P.PNPSI_ITS ---
Subjective Subjective Date of Service: 12/04/23 Reason For Visit: depression, polysubstance abuse disorder, opiate Interim History: Met with patient; discussed with team Patient reports that he remains doing overall much better; still with some depression but significantly less and feels safe and optimistic. Patient shared about his relationship with his father and his mother which was very loving and supportive; he says he really has not let himself grief for his father's and is looking for a support group in the community. Patient feels that methadone 75 mg has been very helpful and wants to leave it where it is. He feels the rest of the medication changes were helpful accept the trazodone is not working for sleep and he wants to go back to Seroquel which he said was helpful in the past; he understands risks/side effects. Patient feels ready to discharge back to the community. Asks for psychiatric provider and a therapist as well. Discussed foot neuropathy and patient agrees to discuss with his PCP regarding restarting gabapentin Mental Status Exam Mental Status Exam Narrative: Pt is alert and oriented; behavior is cooperative, friendly and calm; patient not in distress; cachectic but less so, adequately groomed, tattooed; mood is described as better and affect congruent, downcast, brighter, more calm; eye contact appropriate; Speech is normal rate, volume and prosody; no psychomotor retardation present; thought process is organized and goal directed; Thought content is on processing the loss of his father and other family members; discharge planning; otherwise pertinent to relevant topics and without any delusional content, paranoid ideations or grandiosity; no SI, no HI. There is no evidence of perceptual disturbance and denies AVH. Patients insight and judgment fair Diagnostics Vital Signs (24Hr): Vital Signs - 24 hr 12/03/23 17:02 12/03/23 20:00 12/03/23 20:59 Temperature 98.4 F Pulse Rate 72 Respiratory Rate 17 Blood Pressure 118/60 104/59 L 104/59 L Pulse Oximetry 99 Oxygen Delivery Method Room Air 12/04/23 08:00 Temperature 97.5 F Pulse Rate 90 Respiratory Rate 18 Blood Pressure 115/56 L Pulse Oximetry 100 Oxygen Delivery Method Room Air BMI result Body Mass Index 16.8 Labs 11/28/23 20:44 11/28/23 20:44 Medications Medications Current Medications Acetaminophen (Acetaminophen 325 Mg Tablet) 650 mg PO Q6H PRN PRN Reason: Headache/Pain Scale (1-10) Last Admin: 12/03/23 07:19 Dose: 650 mg Al Hydroxide/Mg Hydroxide (Magnesium Hydrox/Alum Hydrox 30 Ml Oral.Susp) 30 ml PO Q6H PRN PRN Reason: Heartburn/Nausea Albuterol Sulfate (Albuterol Sulfate 90 Mcg 8 Gm Inhaler) 1 puff INHALE QID PRN PRN Reason: shortness of breath or wheezing Clonazepam (Clonazepam 1 Mg Tablet) 1 mg PO BID PRN PRN Reason: Anxiety Last Admin: 12/04/23 09:09 Dose: 1 mg Clonidine HCl (Clonidine Hcl 0.1 Mg Tablet) 0.1 mg PO Q4H PRN; Protocol PRN Reason: anxiety/w/drawal symptoms Last Admin: 12/04/23 08:23 Dose: 0.1 mg Cyclobenzaprine HCl (Cyclobenzaprine Hcl 10 Mg Tablet) 10 mg PO Q6H PRN PRN Reason: muscle aches Last Admin: 12/03/23 20:57 Dose: 10 mg Dicyclomine HCl (Dicyclomine Hcl 10 Mg Capsule) 10 mg PO QID PRN PRN Reason: stomach cramping Last Admin: 12/03/23 20:57 Dose: 10 mg Folic Acid (Folic Acid 1 Mg Tablet) 1 mg PO DAILY [facility] Last Admin: 12/04/23 08:03 Dose: 1 mg Hydroxyzine HCl (Hydroxyzine Hcl 25 Mg Tablet) 25 mg PO Q6H PRN PRN Reason: Anxiety Last Admin: 12/03/23 20:57 Dose: 25 mg Lidocaine (Lidocaine 4 % Patch Adh..Patch) 1 patch TRANSDERMA DAILY [facility]; Protocol Last Admin: 12/04/23 08:03 Dose: 1 patch Loperamide HCl (Loperamide Hcl 2 Mg Capsule) 2 mg PO Q6H PRN PRN Reason: Loose Stool Magnesium Hydroxide (Milk Of Magnesia 30 Ml Oral.Susp) 30 ml PO DAILY PRN PRN Reason: Constipation Magnesium Oxide (Magnesium Oxide 400 Mg Tablet) 400 mg PO BEDTIME [facility] Last Admin: 12/03/23 20:59 Dose: 400 mg Methadone HCl (Methadone Hcl 20 Mg/2 Ml Oral.Conc) 75 mg PO DAILY [facility] Last Admin: 12/04/23 08:04 Dose: 75 mg Mirtazapine (Mirtazapine 7.5 Mg Tablet) 7.5 mg PO BEDTIME [facility] Last Admin: 12/03/23 20:57 Dose: 7.5 mg Multivitamins/Vitamin C (Multivitamin Tablet) 1 tab PO DAILY [facility] Last Admin: 12/04/23 08:03 Dose: 1 tab Paroxetine HCl (Paroxetine Hcl 20 Mg Tablet) 20 mg PO DAILY [facility] Last Admin: 12/04/23 08:04 Dose: 20 mg Thiamine HCl (Thiamine Hcl 100 Mg Tablet) 100 mg PO DAILY [facility] Last Admin: 12/04/23 08:03 Dose: 100 mg Trazodone HCl (Trazodone Hcl 50 Mg Tablet) 50 mg PO BEDTIME MRX1 PRN PRN Reason: Insomnia Last Admin: 12/03/23 20:57 Dose: 50 mg Trolamine Salicylate (Trolamine Salicylate 10 % Cream 85 Gm Tube) 1 appl TOPICAL BID PRN; Protocol PRN Reason: leg pain Allergies Allergies Allergy/AdvReac Type Severity Reaction Status Date / Time amoxicillin [Amoxicillin] Allergy Mild SWELLING Verified 11/28/23 19:21 Penicillins Allergy Mild SWELLING Verified 11/28/23 19:21 penicillin V Allergy Unknown unknown Verified 11/28/23 19:21 Doxycycline Hyclate Allergy Unknown unknown Uncoded 10/18/23 19:17 Assessment & Plan Assessment & Plan (1) Opioid use disorder: Status: Acute Code(s): F11.90 - Opioid use, unspecified, uncomplicated Assessment and Plan: * additional 10mg methadone today and 5mg later this afternoon (total of 55mg) * tomorrow 65mg (11/30) * Sunday (12/01) 75mg * patient has previously tolerated higher doses of methadone, and while he has not received methadone in several weeks, he continued to use fentanyl with regularity so concern for decreased tolerance is much less. * if sedation is ever noted, consider other medications that may be contributing to this presentation and/or hold dose and consult this marketing underwriter * Plan 12/01 encourage use or prn tylenol and use coping skills for distraction when discomfort. start mg oxide 440mg at bedtime start lidocaine patch on back start aspercreme bid prn for leg pain 12/02 continue tx plan 12/03 Patient reports that he remains doing overall much better; still with some depression but significantly less and feels safe and optimistic. Patient shared about his relationship with his father and his mother which was very loving and supportive; he says he really has not let himself grief for his father's and is looking for a support group in the community. Patient feels that methadone 75 mg has been very helpful and wants to leave it where it is. He feels the rest of the medication changes were helpful accept the trazodone is not working for sleep and he wants to go back to Seroquel which he said was helpful in the past; he understands risks/side effects. Patient feels ready to discharge back to the community. Asks for psychiatric provider and a therapist as well. -Discussed foot neuropathy and patient agrees to discuss with his PCP regarding restarting gabapentin DC Trazodone Start Seroquel 100mg qhs (pt has been on before) -work on aftercare planning Patient educated on: diagnosis, medication risk/benefits, substance abuse and medical condition Informed Consent: understands Reason for continued inpatient stay Substantial Risk for: stable for discharge Time Spent With Patient Time: Total time managing care of this patient today ____ minutes.
[2023-12-04 20:15] VITALS: BP 123/72; PULSE 82; RESP 16; TEMP 36.4; O2SAT 99
[2023-12-04 20:26] VITALS: BP 123/72
[2023-12-04] MEDS: hydrOXYzine HCL 25 MG TABLET PO (20:27)
[2023-12-04] MEDS: Magnesium Oxide 400 MG TABLET PO (20:27)
[2023-12-04] MEDS: QUEtiapine Fumarate 100 MG TABLET PO (20:27)
[2023-12-04] MEDS: Cyclobenzaprine HCl 10 MG TABLET PO (20:28)
[2023-12-04] MEDS: Mirtazapine 7.5 MG TABLET PO (20:29)
[2023-12-04] MEDS: traZODone HCL 50 MG TABLET PO (20:30)
[2023-12-04] MEDS: Dicyclomine HCl 10 MG CAPSULE PO (20:30)
--- NOTE | 2023-12-05 | ECG_ITS ---
Test Reason : cocaine use Blood Pressure : / mmHG Vent. Rate : 077 BPM Atrial Rate : 077 BPM P-R Int : 136 ms QRS Dur : 084 ms QT Int : 374 ms P-R-T Axes : 063 072 057 degrees QTc Int : 423 ms Normal sinus rhythm Normal ECG When compared with ECG of 29-NOV-2023 13:35, No significant change was found Referred By: Eric Draper Electronically Signed By:KARL STEPHENS
[2023-12-05 07:30] VITALS: BP 107/60; PULSE 74; RESP 15; TEMP 36.8; O2SAT 98
[2023-12-05] MEDS: methADONE HCl 20 MG/2 ML ORAL.CONC 75 MG PO (08:48)
[2023-12-05] MEDS: Lidocaine 4 % Patch ADH..PATCH 1 PATCH TRANSDERMA (08:48)
[2023-12-05] MEDS: Thiamine HCL 100 MG TABLET PO (08:49)
[2023-12-05] MEDS: Folic Acid 1 MG TABLET PO (08:49)
[2023-12-05] MEDS: Multivitamin TABLET 1 TAB PO (08:49)
[2023-12-05] MEDS: PARoxetine HCL 20 MG TABLET PO (08:49)
[2023-12-05] MEDS: clonazePAM 1 MG TABLET PO ×2 (08:57→20:34)
--- NOTE | 2023-12-05 10:05 | P.PNPSI_ITS ---
Subjective Subjective Date of Service: 12/05/23 Reason For Visit: depression, polysubstance abuse disorder, opiate Interim History: Met with patient; discussed with team Patient slept much better last night with Ser[place]. Again agrees that medications are helpful and working. Feels ready to discharge and remains optimistic about stability and sobriety -agrees to EKG to monitor QTC given increased methadone Mental Status Exam Mental Status Exam Narrative: Pt is alert and oriented; behavior is cooperative, friendly and calm; patient not in distress; cachectic but less so, adequately groomed, tattooed; mood is described as good and affect congruent, brighter, more calm; eye contact appropriate; Speech is normal rate, volume and prosody; no psychomotor retardation present; thought process is organized and goal directed; Thought content is on processing the loss of his father and other family members; discharge planning; otherwise pertinent to relevant topics and without any delusional content, paranoid ideations or grandiosity; no SI, no HI. There is no evidence of perceptual disturbance and denies AVH. Patients insight and judgment fair Diagnostics Vital Signs (24Hr): Vital Signs - 24 hr 12/04/23 20:15 12/04/23 20:26 Temperature 97.6 F Pulse Rate 82 Respiratory Rate 16 Blood Pressure 123/72 123/72 Pulse Oximetry 99 Oxygen Delivery Method Room Air BMI result Body Mass Index 16.8 Labs 11/28/23 20:44 11/28/23 20:44 Medications Medications Current Medications Acetaminophen (Acetaminophen 325 Mg Tablet) 650 mg PO Q6H PRN PRN Reason: Headache/Pain Scale (1-10) Last Admin: 12/03/23 07:19 Dose: 650 mg Al Hydroxide/Mg Hydroxide (Magnesium Hydrox/Alum Hydrox 30 Ml Oral.Susp) 30 ml PO Q6H PRN PRN Reason: Heartburn/Nausea Albuterol Sulfate (Albuterol Sulfate 90 Mcg 8 Gm Inhaler) 1 puff INHALE QID PRN PRN Reason: shortness of breath or wheezing Clonazepam (Clonazepam 1 Mg Tablet) 1 mg PO BID PRN PRN Reason: Anxiety Last Admin: 12/05/23 08:57 Dose: 1 mg Clonidine HCl (Clonidine Hcl 0.1 Mg Tablet) 0.1 mg PO Q4H PRN; Protocol PRN Reason: anxiety/w/drawal symptoms Last Admin: 12/04/23 20:26 Dose: 0.1 mg Cyclobenzaprine HCl (Cyclobenzaprine Hcl 10 Mg Tablet) 10 mg PO Q6H PRN PRN Reason: muscle aches Last Admin: 12/04/23 20:28 Dose: 10 mg Dicyclomine HCl (Dicyclomine Hcl 10 Mg Capsule) 10 mg PO QID PRN PRN Reason: stomach cramping Last Admin: 12/04/23 20:30 Dose: 10 mg Folic Acid (Folic Acid 1 Mg Tablet) 1 mg PO DAILY [facility] Last Admin: 12/05/23 08:49 Dose: 1 mg Hydroxyzine HCl (Hydroxyzine Hcl 25 Mg Tablet) 25 mg PO Q6H PRN PRN Reason: Anxiety Last Admin: 12/04/23 20:27 Dose: 25 mg Lidocaine (Lidocaine 4 % Patch Adh..Patch) 1 patch TRANSDERMA DAILY [facility]; Protocol Last Admin: 12/05/23 08:48 Dose: 1 patch Loperamide HCl (Loperamide Hcl 2 Mg Capsule) 2 mg PO Q6H PRN PRN Reason: Loose Stool Magnesium Hydroxide (Milk Of Magnesia 30 Ml Oral.Susp) 30 ml PO DAILY PRN PRN Reason: Constipation Magnesium Oxide (Magnesium Oxide 400 Mg Tablet) 400 mg PO BEDTIME [facility] Last Admin: 12/04/23 20:27 Dose: 400 mg Methadone HCl (Methadone Hcl 20 Mg/2 Ml Oral.Conc) 75 mg PO DAILY [facility] Last Admin: 12/05/23 08:48 Dose: 75 mg Mirtazapine (Mirtazapine 7.5 Mg Tablet) 7.5 mg PO BEDTIME [facility] Last Admin: 12/04/23 20:29 Dose: 7.5 mg Multivitamins/Vitamin C (Multivitamin Tablet) 1 tab PO DAILY [facility] Last Admin: 12/05/23 08:49 Dose: 1 tab Paroxetine HCl (Paroxetine Hcl 20 Mg Tablet) 20 mg PO DAILY [facility] Last Admin: 12/05/23 08:49 Dose: 20 mg Quetiapine Fumarate (Quetiapine Fumarate 100 Mg Tablet) 100 mg PO BEDTIME [facility] Last Admin: 12/04/23 20:27 Dose: 100 mg Thiamine HCl (Thiamine Hcl 100 Mg Tablet) 100 mg PO DAILY [facility] Last Admin: 12/05/23 08:49 Dose: 100 mg Trazodone HCl (Trazodone Hcl 50 Mg Tablet) 50 mg PO BEDTIME MRX1 PRN PRN Reason: Insomnia Last Admin: 12/04/23 20:30 Dose: 50 mg Trolamine Salicylate (Trolamine Salicylate 10 % Cream 85 Gm Tube) 1 appl TOPICAL BID PRN; Protocol PRN Reason: leg pain Allergies Allergies Allergy/AdvReac Type Severity Reaction Status Date / Time amoxicillin [Amoxicillin] Allergy Mild SWELLING Verified 11/28/23 19:21 Penicillins Allergy Mild SWELLING Verified 11/28/23 19:21 penicillin V Allergy Unknown unknown Verified 11/28/23 19:21 Doxycycline Hyclate Allergy Unknown unknown Uncoded 10/18/23 19:17 Assessment & Plan Assessment & Plan (1) MDD (major depressive disorder), recurrent severe, without psychosis: Status: Acute Code(s): F33.2 - Major depressive disorder, recurrent severe without psychotic features (2) Opioid use disorder: Status: Acute Code(s): F11.90 - Opioid use, unspecified, uncomplicated Assessment and Plan: * additional 10mg methadone today and 5mg later this afternoon (total of 55mg) * tomorrow 65mg (11/30) * Sunday (12/01) 75mg * patient has previously tolerated higher doses of methadone, and while he has not received methadone in several weeks, he continued to use fentanyl with regularity so concern for decreased tolerance is much less. * if sedation is ever noted, consider other medications that may be contributing to this presentation and/or hold dose and consult this marketing underwriter * (3) Cocaine use disorder: Status: Acute Code(s): F14.10 - Cocaine abuse, uncomplicated Plan 12/01 encourage use or prn tylenol and use coping skills for distraction when discomfort. start mg oxide 440mg at bedtime start lidocaine patch on back start aspercreme bid prn for leg pain 12/02 continue tx plan 12/03 Patient reports that he remains doing overall much better; still with some depression but significantly less and feels safe and optimistic. Patient shared about his relationship with his father and his mother which was very loving and supportive; he says he really has not let himself grief for his father's and is looking for a support group in the community. Patient feels that methadone 75 mg has been very helpful and wants to leave it where it is. He feels the rest of the medication changes were helpful accept the trazodone is not working for sleep and he wants to go back to Seroquel which he said was helpful in the past; he understands risks/side effects. Patient feels ready to discharge back to the community. Asks for psychiatric provider and a therapist as well. -Discussed foot neuropathy and patient agrees to discuss with his PCP regarding restarting gabapentin 12/04 Patient slept much better last night with Seroquel. Again agrees that medications are helpful and working. Feels ready to discharge and remains optimistic about stability and sobriety -agrees to EKG to monitor QTC given increased methadone Although depression remains, patient feels that it is significantly less and that he is overall doing much better, better mood and remains hopeful. Patient understands the risks of relapse but is optimistic about his sobriety, feeling helped with increased methadone dose. Patient is appropriate to return to the community for care. Patient is not in imminent risk for harm to self or others and request for discharge honored. QTc 423 DC Trazodone continue Seroquel 100mg qhs (pt has been on before) -work on aftercare planning Patient educated on: diagnosis, medication risk/benefits and substance abuse Informed Consent: understands Reason for continued inpatient stay Substantial Risk for: stable for discharge Time Spent With Patient Time: Total time managing care of this patient today ____ minutes.
[2023-12-05 10:22] VITALS: BP 116/60
[2023-12-05] MEDS: hydrOXYzine HCL 25 MG TABLET PO (10:22)
[2023-12-05] MEDS: cloNIDine HCL 0.1 MG TABLET PO ×2 (10:22→20:35)
[2023-12-05 20:00] VITALS: BP 109/55; PULSE 80; RESP 18; TEMP 36.2; O2SAT 98
[2023-12-05] MEDS: Magnesium Oxide 400 MG TABLET PO (20:31)
[2023-12-05] MEDS: Mirtazapine 7.5 MG TABLET PO (20:31)
[2023-12-05] MEDS: QUEtiapine Fumarate 100 MG TABLET PO (20:31)
[2023-12-05] MEDS: traZODone HCL 50 MG TABLET PO (20:31)
[2023-12-05] MEDS: Cyclobenzaprine HCl 10 MG TABLET PO (20:34)
[2023-12-05 20:35] VITALS: BP 109/55
[2023-12-06 07:00] VITALS: BMI 20.9
[2023-12-06 08:30] VITALS: BP 105/58; PULSE 74; RESP 16; TEMP 36.8; O2SAT 99
--- NOTE | 2023-12-06 08:31 | PM.PSYDC ---
DS: Providers Provider Date of Service: 12/06/23 Date of admission: 11/29/23 11:34 Date of discharge: 12/06/23 [facility] Attending physician on admission: Eric Draper Consults: 11/28/23 20:50 Addiction Medicine Stat Consulting Provider: Addiction Covering Reason for consultation: heroin, cocaine use, seeking detox 11/29/23 18:16 Addiction Medicine Routine Consulting Provider: Addiction Covering Reason for consultation: titration of Methadone Has provider been notified: No Attending physician on discharge: Eric Draper DS: Diagnosis Discharge Diagnosis (1) MDD (major depressive disorder), recurrent severe, without psychosis: Status: Acute (2) Opioid use disorder: Status: Acute (3) Cocaine use disorder: Status: Acute DS: Medications Discharge Medications Home Medications: Home Medications ?Medication ?Instructions ?Recorded ?Confirmed clonazepam 1 mg tablet 1 mg PO BID PRN anxiety 11/29/23 11/29/23 mirtazapine 7.5 mg tablet 7.5 mg PO BEDTIME 11/29/23 11/29/23 paroxetine HCl 10 mg tablet 10 mg PO DAILY 11/29/23 11/29/23 Previous Rx's ?Medication ?Instructions ?Recorded albuterol sulfate 90 mcg/actuation 1 inh inhalation QID PRN shortness 11/23/22 aerosol inhaler (Ventolin HFA) of breath or wheezing #8.5 grams Mental Status Exam Mental Status Exam Narrative: Pt is alert and oriented; behavior is cooperative, friendly and calm; patient not in distress; cachectic but less so, adequately groomed, tattooed; mood is described as good and affect congruent, brighter, more calm; eye contact appropriate; Speech is normal rate, volume and prosody; no psychomotor retardation present; thought process is organized and goal directed; Thought content is on processing the loss of his father and other family members; discharge planning; otherwise pertinent to relevant topics and without any delusional content, paranoid ideations or grandiosity; no SI, no HI. There is no evidence of perceptual disturbance and denies AVH. Patients insight and judgment fair Data Data Completed and Pending Completed studies during hospitalization [Text1]: 11/30/23 09:28 Estimat Average Glucose 108 Hemoglobin A1c % 5.4 Magnesium 2.0 Triglycerides 75 Cholesterol 124 LDL Cholesterol, Calc 73 HDL Cholesterol 36 L Vitamin B12 433 Folate 16.3 TSH 0.18 L Free T4 0.92 DS: Summary Hospital Course Hospital Course: HPI: Patient is a 43-year-old male with history of depression/anxiety, opiate and cocaine use disorder, on methadone who self presents for worsening depression and with vague SI. 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 Unfortunately his father about a year ago which quickly worsened his depression; his stepfather soon after which was also upsetting. Patient tried hold onto the apartment where the 2 had been living but could not continue rent and has been homeless for the past several months with depression worsening. Now homeless, without an address, it was very difficult for patient to get PT 1 transportation and would frequently miss his methadone appointments, which would result in his methadone dose being lowered and him using more heroin and cocaine to compensate. For a short period of time he was able to get to the methadone clinic for about 8 days in a row and his dose got pushed up to 80 mg which was helpful however transportation again fell through and he has missed the past 2 weeks. Patient depression worsened still on this week he started feeling like there is no point to life, hopeless and so self presented. Denies history of manic type episodes or behaviors; denies AVH; denies alcohol or benzo abuse. Uses IV heroin/fentanyl and cocaine however says he never shares needles. Formulation/clinical reasoning: -Patient has a history of depression/anxiety clearly worsened by ongoing severe substance abuse. -Patient has been on low dose of paroxetine and Remeron for several years and it is unclear why these have never been titrated. He agrees to increasing paroxetine at this time. -Patient asks to be back on gabapentin which he says is for foot neuropathy and leg spasms; service writer advisor however could only find 1 script for this over the past 2 years and that was a script for only 1 week; service writer advisor discussed that this will likely be best for him to discuss with his PCP to which patient agreed -patient was doing better on higher dose of methadone -Regarding clonazepam, patient has been getting this from outpatient provider for quite a while, including having a recently filled prescription; thus service writer advisor concluded that this medication would be continued throughout admission Hospital course: On admission patient was depressed however vague SI mostly resolved; discussed medication regimen and he agreed to in crease paroxetine. Patient was feeling the effects of opiate withdrawal and benefited from methadone titration which team agreed was necessary to help him remain sober. Patient also started back on magnesium oxide, utilized clonidine as a p.r.n. and eventually restarted on Seroquel for sleep. Over subsequent days, patient's mood significantly improved and depression and anxiety abated. Patient became much more hopeful and optimistic about stability and remaining sober, feeling that increased methadone dose was very helpful. He continued to complain of chronic bilateral foot neuropathy but reported a good rapport with his PCP with whom he will discuss treatment post discharge. Patient did not want to go to a program but rather to continue working out his sobriety in the community. He was well aware of the risks of relapse but again felt that with increased methadone he will do much better. Also patient was eager to get involved in a grief support group to help more in the loss of his father which social work helped him pursue. Patient remained in good behavioral and impulse control throughout his time on the unit, getting along well with peers and staff, engaged in treatment and attending groups. He returned to baseline and agreed he was ready to discharge and continue treatment in the community. While patient of course remains vulnerable to relapse and decompensation, this is a chronic issue that will not resolve with longer stay on inpatient unit. Patient was not in imminent risk for harm to self or others and ready for discharge. Time spent discussing smoking cessation with patient: 3 to 10 minutes Status at Discharge Functional status at discharge: independent ambulation Overall status at discharge: patient is back to baseline Time Spent with Patient Time attestation: Total time managing care of this patient today ____ minutes. Time spent: Greater than 30 minutes Discharge Plan Discharge Anticipated Discharge Date/Time: 12/06/23 11:30 Patient Disposition: Intermediate Discharge Diagnosis: MDD, recurrent, severe without psychosis, in partial remission Referrals: Kd Delaney FNP-BC [Primary Care Provider] - 1 Week Discharge Medications: New clonidine HCl 0.1 mg Tablet 0.1 mg PO Q4H PRN (Reason: anxiety) 30 Days Qty: 90 1RF Protocol: Hold for SBP< HOLD for SBP < : 90 hydroxyzine HCl 25 mg Tablet 25 mg PO Q6H PRN (Reason: mild Anxiety) 30 Days Qty: 60 1RF methadone [Methadose] 10 mg/mL Concentrate 75 mg PO DAILY Qty: 0 0RF Rx Instructions: Partial Fill upon patient request. quetiapine 100 mg Tablet 100 mg PO BEDTIME 30 Days Qty: 30 1RF trazodone 50 mg Tablet 50 mg PO BEDTIME PRN (Reason: Insomnia) 30 Days Qty: 30 1RF magnesium oxide 400 mg (241.3 mg magnesium) Tablet 400 mg PO BEDTIME 30 Days Qty: 30 1RF lidocaine [Lidocaine Pain Relief] 4 % Adhesive Patch,Medicated 1 patch transdermal DAILY 30 Days Qty: 30 1RF Protocol: Apply to: Apply to: back Rx Instructions: back pain multivitamin [Daily-Jabier] Tablet 1 tab PO DAILY 30 Days Qty: 30 0RF thiamine mononitrate (vit B1) 100 mg Tablet 100 mg PO DAILY 30 Days Qty: 30 0RF Continued clonazepam 1 mg tablet 1 mg PO BID PRN (Reason: anxiety) mirtazapine 7.5 mg tablet 7.5 mg PO BEDTIME 30 Days Qty: 30 1RF Changed paroxetine HCl 20 mg tablet 20 mg PO DAILY 30 Days Qty: 30 1RF albuterol sulfate [Ventolin HFA] 90 mcg/actuation HFA aerosol inhaler 2 inh inhalation QID PRN (Reason: shortness of breath or wheezing) 30 Days Qty: 8.5 1RF Discharge Orders: Discharge Order (Routine); Ordered 12/06/23 Ordered By: Eric Draper Diet: Regular diet Activity on Discharge: As tolerated Stand Alone Forms: Patient Portal Discharge page, Community Support Print Language: Kazakh Care Plan Goals: Maintain mood and safe behaviors Take medications as prescribed Continue to pursue sobriety Practice coping skills Continue with outpatient providers and reach out to them as needed Health Concerns: Mood stability and behaviors Sobriety Plan of Treatment: Follow up with your PCP, psychiatric provider and other outpatient providers regarding above concerns Take medications as prescribed Assessment: Risk assessment at time of discharge:? Patient was interviewed prior to discharge and found to be fully oriented and without any SI or HI. Patient has improved insight and judgment and wants to continue treatment. Patient is not in imminent risk of harm to self or others and has a safety plan that includes presenting to the closest ER or calling 911 if feeling unsafe.? Patient has been observed closely by nursing and unit staff throughout admission; patient has not engaged in any behaviors that suggest dangerousness to self or others and has demonstrated appropriate behaviors and impulse control
[2023-12-06] MEDS: Multivitamin TABLET 1 TAB PO (08:41)
[2023-12-06] MEDS: Thiamine HCL 100 MG TABLET PO (08:41)
[2023-12-06] MEDS: Folic Acid 1 MG TABLET PO (08:42)
[2023-12-06] MEDS: Lidocaine 4 % Patch ADH..PATCH 1 PATCH TRANSDERMA (08:42)
[2023-12-06] MEDS: PARoxetine HCL 20 MG TABLET PO (08:42)
[2023-12-06] MEDS: Naloxone HCl Nasal TAKE HOME 4 MG SPRAY 8 MG NOSTRILALT (08:42)
[2023-12-06] MEDS: methADONE HCl 20 MG/2 ML ORAL.CONC 75 MG PO (08:42)
[2023-12-06 08:47] VITALS: BP 108/58
[2023-12-06] MEDS: cloNIDine HCL 0.1 MG TABLET PO (08:47)
[2023-12-06] MEDS: clonazePAM 1 MG TABLET PO (10:08)
== END 2023-12-06 12:12 | disposition home or self-care (01) | DRG 751 ==
LOC: HO.ED 11-29 04:29 → HO.PM5 11-29 11:52
PROVIDERS: Physician Assistant; Physician Assistant Medical; Admitting Provider Clinical Nurse Specialist Psychiatric/Mental Health, Adult; Emergency Provider Emergency Medicine; PCP Nurse Practitioner Family; Visit Provider Psychiatry & Neurology Psychiatry
DX: F33.2 Major depressive disorder, recurrent severe without psychotic features (principal); Z91.148 Patient's other noncompliance with medication regimen for other reason; F10.91 Alcohol use, unspecified, in remission; F11.20 Opioid dependence, uncomplicated; F14.10 Cocaine abuse, uncomplicated; F19.90 Other psychoactive substance use, unspecified, uncomplicated; F41.9 Anxiety disorder, unspecified; F17.210 Nicotine dependence, cigarettes, uncomplicated; Z71.6 Tobacco abuse counseling; Z59.02 Unsheltered homelessness; Z79.899 Other long term (current) drug therapy
CPT/HCPCS: 36415; 80053; 80061; 80143; 80179; 80307; 81001; 82607; 82746; 83036; 83735; 84439; 84443; 85025; 93005; 99285; S9485

== ENCOUNTER 2023-11-29 11:34 | Outpatient (BNV) | payer OTHER, SELFPAY | END 2023-11-29 13:35 | PROVIDERS: Admitting Provider Clinical Nurse Specialist Psychiatric/Mental Health, Adult; Emergency Provider Emergency Medicine; PCP Nurse Practitioner Family; Visit Provider Internal Medicine Cardiovascular Disease | DX: F11.10 Opioid abuse, uncomplicated (principal) | CPT/HCPCS: 93010 ==

== ENCOUNTER 2023-11-29 11:34 | Outpatient (BNV) | payer OTHER, SELFPAY | END 2023-12-05 10:26 | PROVIDERS: Admitting Provider Clinical Nurse Specialist Psychiatric/Mental Health, Adult; Emergency Provider Emergency Medicine; PCP Nurse Practitioner Family; Visit Provider Internal Medicine | DX: F11.90 Opioid use, unspecified, uncomplicated (principal) | CPT/HCPCS: 93010 ==

== ENCOUNTER → 2023-11-29 11:34 | Outpatient (BNV) | payer OTHER, SELFPAY | PROVIDERS: Admitting Provider Clinical Nurse Specialist Psychiatric/Mental Health, Adult; Emergency Provider Emergency Medicine; PCP Nurse Practitioner Family; Visit Provider Psychiatry & Neurology Psychiatry | DX: F33.2 Major depressive disorder, recurrent severe without psychotic features (principal); F11.90 Opioid use, unspecified, uncomplicated; F14.10 Cocaine abuse, uncomplicated | CPT/HCPCS: 90792; 99231; 99232; 99238; 99499 ==

== ENCOUNTER 2023-12-07 06:42 | Emergency (ER) | payer OTHER, SELFPAY ==
[2023-12-07 06:47] VITALS: BP 112/69; PULSE 92; RESP 18; TEMP 37.2; O2SAT 97
[2023-12-07 07:23] VITALS: BP 112/69; PULSE 92; RESP 18; TEMP 37.2; O2SAT 97
--- NOTE | 2023-12-07 07:54 | ED.PSYCH ---
HPI - Psych General Chief Complaint: Psychiatric Symptoms Stated Complaint: crisis Time Seen by Provider: 12/07/23 07:06 Source: patient and old records reviewed Mode of arrival: ambulatory Limitations: no limitations History of Present Illness ED Provider: ADRIANNA YEN Narrative: 43 yo male with PMH of depression, polysubstance abuse disorder, anxiety just discharged yesterday 12/05 from inpatient psychiatric stay here now back this AM states he has nowhere to go used a bag of heroin and is depressed no SI. He feels he wasn't ready to go. complaint: feels depressed and anxiety Onset (ago): hour(s) (few) Duration: constant History of same: Yes Relieving factors: none Exacerbating factors: drug use and other Context: recent drug abuse and significant life stressor Associated psychiatric symptoms: depression Associated symptoms: denies other symptoms Treatments prior to arrival: none Related Data Home Medications ?Medication ?Instructions ?Recorded ?Confirmed clonazepam 1 mg tablet 1 mg PO BID PRN anxiety 11/29/23 12/07/23 Previous Rx's ?Medication ?Instructions ?Recorded albuterol sulfate 90 mcg/actuation 2 inh inhalation QID PRN shortness 12/06/23 aerosol inhaler (Ventolin HFA) of breath or wheezing 30 days #8.5 grams clonazepam 1 mg tablet 1 mg PO BID 7 days #14 tabs 12/06/23 clonidine HCl 0.1 mg tablet 0.1 mg PO Q4H PRN anxiety 30 days 12/06/23 #90 tabs hydroxyzine HCl 25 mg tablet 25 mg PO Q6H PRN mild Anxiety 30 12/06/23 days #60 tabs lidocaine 4 % topical patch 1 patch transdermal DAILY 30 days 12/06/23 (Lidocaine Pain Relief) #30 ea magnesium oxide 400 mg (241.3 mg 400 mg PO BEDTIME 30 days #30 tabs 12/06/23 magnesium) tablet methadone 10 mg/mL oral 75 mg (7.5 mL) PO DAILY #0 mL 12/06/23 concentrate (Methadose) mirtazapine 7.5 mg tablet 7.5 mg PO BEDTIME 30 days #30 tabs 12/06/23 multivitamin (Daily-Jabier tablet) 1 tab PO DAILY 30 days #30 tabs 12/06/23 paroxetine HCl 20 mg tablet 20 mg PO DAILY 30 days #30 tabs 12/06/23 quetiapine 100 mg tablet 100 mg PO BEDTIME 30 days #30 tabs 12/06/23 thiamine mononitrate (vit B1) 100 100 mg PO DAILY 30 days #30 tabs 12/06/23 mg tablet trazodone 50 mg tablet 50 mg PO BEDTIME PRN Insomnia 30 12/06/23 days #30 tabs Allergies Allergy/AdvReac Type Severity Reaction Status Date / Time amoxicillin [Amoxicillin] Allergy Mild SWELLING Verified 12/07/23 06:52 Penicillins Allergy Mild SWELLING Verified 12/07/23 06:52 penicillin V Allergy Unknown unknown Verified 12/07/23 06:52 Doxycycline Hyclate Allergy Unknown unknown Uncoded 10/18/23 19:17 Review of Systems Review of Systems: Constitutional : No Fever, No Chills ENT/Mouth : No Ear Pain, No Nasal Congestion, No sore throat Eyes: No Eye Pain, No Swelling, No Redness Cardiovascular : No Chest Pain, No SOB Respiratory : No Cough, No Sputum, No Dyspnea Gastrointestinal : No Nausea, No Vomiting, No Diarrhea, No Hematochezia, No Melena Genitourinary : No Dysuria, No Urinary Frequency, No Hematuria Musculoskeletal : No Myalgias Skin : No Skin Lesions, No rash Neuro : No Weakness, No Numbness, No Paresthesias, No Dizziness, No Headache Psych : positive Anxiety, positive Depression, no SI/HI All other systems reviewed and are negative PMFSH Past Medical History Attestation statement: The following information was validated with the patient. Source: old records reviewed Medical History Cocaine use disorder Opioid use disorder MDD (major depressive disorder), recurrent severe, without psychosis Anxiety and depression Anxiety Surgical History No pertinent past surgical history Family History Family History Father COPD (chronic obstructive pulmonary disease) Mother Cancer Maternal Uncle Mental health disorder Paternal Uncle Mental health disorder Social History Social History Household Members: None Housing: Homeless Do you presently have visiting nurse or other home services: No Alcohol intake: never Patient Tobacco Use Status: Current everyday Tobacco user Tobacco use type: Cigarette Cigarette Packs Per Day: 1 Cigarettes Per Day: 10 Smoked in Last 30 Days: Yes e-Cigarette/Vaping Use: Currently Using Second Hand Smoke Exposure: Yes Use of substances other than those prescribed or required for medical reasons: Yes Substance Use Type: Crack/Cocaine and Heroin Last Used Substance: Hours (ago) Any prior treatment program specific to substance use: No Advance Directives: No Advance Directives Information Provided: No Do you have a plan to hurt others: No Plan service: No Current occupational status: unemployed Sexual orientation: Straight/Heterosexual Cognitive needs: No Hearing needs: No Vision needs: No Physical Exam Vital Signs: Vital Signs: Last Vital Signs Temp 98.9 F 12/07/23 07:23 Pulse 92 12/07/23 07:23 Resp 18 12/07/23 07:23 BP 112/69 12/07/23 07:23 Pulse Ox 97 12/07/23 07:23 O2 Del Method Room Air 12/07/23 07:23 BMI result Body Mass Index 20.0 Appearance: appears under the influence but easily wakes up and has conversation. Oriented X3. No acute distress. Eyes: Pupils equal, round and reactive to light. 2mm slightly small ENT: Pharynx normal. Neck: Normal inspection. Neck supple. CVS: Normal heart rate and rhythm. Pulses normal. Respiratory: No respiratory distress. Breath sounds normal. Abdomen: Soft and nontender. Skin: Skin warm and dry. Normal skin color. Normal skin turgor. Extremities: No lower extremity edema. No calf ttp Neuro: Oriented X 3. No motor deficit. No sensory deficit. Cn2-12 intact Course Course Course Narrative: observation care revealed that the patient does meet psychiatric necessity for hospitalization. final disposition discussed with the patient. The patient completed observation care at 5pm. Total time in observation care was 9 hours. Medications Administered Discontinued Medications Generic Name Dose Route Start Last Admin Trade Name Freq PRN Reason Stop Dose Admin Methadone HCl 75 mg 12/07/23 11:32 12/07/23 12:03 Methadone Hcl 20 Mg/2 Ml Oral.Conc PO 12/07/23 11:33 75 mg ONCE ONE Administration Medical Decision Making Medical Decision Making MDM Narrative: 43 yo male with PMH of depression, polysubstance abuse disorder, anxiety here with c/o using drugs not having penitentiary and was not ready for discharge yesterday. at this time drug screen ordered just admitted has no medical complaints will refer to CARE team Differential Diagnosis Differential Diagnoses: The differential diagnosis associated with the presentation includes poor social situation, drug use Admission/Observation Consideration of admission/observation: Escalation of care including admission/observation considered physician observation started at 8am pending CARE team Consult Healthcare Provider Management of the patient was discussed with: Behavioral Health Provider Lab Data MDM Lab Attestation statement: I reviewed the patient's lab results. 12/07/23 10:17 12/07/23 10:17 Labs: Lab Results 12/07/23 12/07/23 12/07/23 Range/Units 08:27 08:28 10:17 WBC 8.8 (4.8-10.8) X10*3/uL RBC 4.26 L (4.60-5.80) X10*6/uL Hgb 12.1 L (14.0-18.0) g/dl Hct 37.0 L (42.0-52.0) % MCV 86.9 (80.0-98.0) fL MCH 28.4 (27.0-33.0) pg MCHC 32.7 (31.0-36.0) g/dl RDW 13.3 (11.0-16.0) % Plt Count 224 (160-400) X10*3/uL MPV 8.6 L (9.4-12.4) fL Immature Gran % (Auto) 0.6 H (0.0-0.4) % Neut % (Auto) 61.7 (45-73) % Lymph % (Auto) 20.3 (20-40) % Snyder % (Auto) 14.1 H (2-11) % Eos % (Auto) 2.7 (0-4) % Baso % (Auto) 0.6 (0-2) % Lymph # (Auto) 1.8 (1.2-4.9) X10*3/uL Snyder # (Auto) 1.2 (0.1-1.2) X10*3/uL Eos # (Auto) 0.2 (0.0-0.4) X10*3/uL Baso # (Auto) 0.1 (0.0-0.2) X10*3/uL Abs Immat Gran (auto) 0.05 H (0.00-0.03) X10*3/uL Absolute Neuts (auto) 5.4 (2.0-8.3) x10*3/uL Absolute Nucleated RBC 0.000 (0.0-0.012) X10*3/uL Nucleated RBC % (auto) 0.0 (0.0-0.2) /100WBC Sodium 137 (135-145) mmol/L Potassium 4.7 (3.3-5.1) mmol/L Chloride 99 (96-108) mmol/L Carbon Dioxide 31 H (22-29) mmol/L Anion Gap 12 (12-20) BUN 16 (9-16) mg/dL Creatinine 0.71 (0.5-1.4) mg/dL Estim Creat Clear Calc 118.9 Estimated GFR > 60 Random Glucose 97 (60-115) mg/dL Calcium 9.1 (8.4-10.2) mg/dL Total Bilirubin 0.6 (0.0-1.0) mg/dL AST 95 H (5-37) U/L ALT 130 H (0-40) U/L Alkaline Phosphatase 73 (39-117) U/L Total Protein 7.0 (6.5-8.0) g/dL Albumin 3.7 (3.5-5.0) g/dL Urine Color Yellow Urine Appearance Clear Urine pH 7.5 (5.0-9.0) Ur Specific Jesse 1.010 (1.005-1.025) Urine Protein Negative (Neg-Trace) mg/dL Urine Glucose (UA) Negative (Negative) mg/dL Urine Ketones Negative (Negative) mg/dL Urine Blood Negative (Negative) Urine Nitrite Negative (Negative) Ur Leukocyte Esterase Negative (Negative) Urine Opiates Screen POSITIVE H (Not Detect) Ur Buprenorphine Scrn Not Detected (Not Detect) ng/mL Ur Oxycodone Screen Not Detected (Not Detect) ng/mL Urine Methadone Screen Positive H (Not Detect) ng/mL Urine Fentanyl Screen POSITIVE H (Not Detect) Ur Barbiturates Screen Not Detected (Not Detect) Ur Phencyclidine Scrn Not Detected (Not Detect) Ur Amphetamines Screen Not Detected (Not Detect) U Benzodiazepines Scrn Not Detected (Not Detect) Urine Cocaine Screen POSITIVE H (Not Detect) U Marijuana (THC) Screen Not Detected (Not Detect) Ethyl Alcohol < 10 mg/dL External Record Review External record reviewed: Inpatient record Social Determinants Patient?s care significantly limited by Social Determinants of Health including: Inadequate housing and Problems related to primary support group Discharge Plan Discharge Clinical Impression: Anxiety, Polysubstance abuse Patient Disposition: Xfer Psychiatric Hosp Transfer Details: [facility] Prescriptions: No Action clonazepam 1 mg tablet 1 mg PO BID PRN (Reason: anxiety) clonidine HCl 0.1 mg Tablet 0.1 mg PO Q4H PRN (Reason: anxiety) 30 Days Qty: 90 1RF Protocol: Hold for SBP< HOLD for SBP < : 90 hydroxyzine HCl 25 mg Tablet 25 mg PO Q6H PRN (Reason: mild Anxiety) 30 Days Qty: 60 1RF methadone [Methadose] 10 mg/mL Concentrate 75 mg PO DAILY Qty: 0 0RF Patient Comments: Per Patient: Last dose received inpatient at [facility] Rx Instructions: Partial Fill upon patient request. quetiapine 100 mg Tablet 100 mg PO BEDTIME 30 Days Qty: 30 1RF trazodone 50 mg Tablet 50 mg PO BEDTIME PRN (Reason: Insomnia) 30 Days Qty: 30 1RF magnesium oxide 400 mg (241.3 mg magnesium) Tablet 400 mg PO BEDTIME 30 Days Qty: 30 1RF lidocaine [Lidocaine Pain Relief] 4 % Adhesive Patch,Medicated 1 patch transdermal DAILY 30 Days Qty: 30 1RF Protocol: Apply to: Apply to: back Rx Instructions: back pain multivitamin [Daily-Jabier] Tablet 1 tab PO DAILY 30 Days Qty: 30 0RF thiamine mononitrate (vit B1) 100 mg Tablet 100 mg PO DAILY 30 Days Qty: 30 0RF paroxetine HCl 20 mg tablet 20 mg PO DAILY 30 Days Qty: 30 1RF albuterol sulfate [Ventolin HFA] 90 mcg/actuation HFA aerosol inhaler 2 inh inhalation QID PRN (Reason: shortness of breath or wheezing) 30 Days Qty: 8.5 1RF mirtazapine 7.5 mg tablet 7.5 mg PO BEDTIME 30 Days Qty: 30 1RF clonazepam 1 mg tablet 1 mg PO BID 7 Days Qty: 14 0RF Rx Instructions: administer 30 minutes before bedtime Interventions: [place]-Suicide Risk Severity Scale Last Done: 12/07/23 07:25 Print Language: Georgian
[2023-12-07 08:45] LABS: Amphetamine Screen Urine Not Detected (Not Detect); Barbiturates, Urine Not Detected (Not Detect); Benzodiazepines Screen Urine Not Detected (Not Detect); Buprenorphine Scr Not Detected (Not Detect); Cannabinoid Screen Urine Not Detected (Not Detect); Cocaine Screen Urine POSITIVE (Not Detect); Fentanyl, urine POSITIVE (Not Detect); Methadone Screen, Urine Positive (Not Detect); Opiate Screen Urine POSITIVE (Not Detect); Oxycodone Screen Urine Not Detected (Not Detect); Phencyclidine Screen Urine Not Detected (Not Detect)
[2023-12-07 10:21] LABS: MANUAL DIFF FLAG NO
[2023-12-07 10:28] LABS: Basophils Absolute Auto 0.1 X10*3/uL (0.0-0.2); Basophils Percent Auto 0.6 % (0-2); Eosinophils Absolute Auto 0.2 X10*3/uL (0.0-0.4); Eosinophils Percent Auto 2.7 % (0-4); Hemoglobin 12.1 g/dl (14.0-18.0); Imm Gran Abs Auto 0.05 X10*3/uL (0.00-0.03); Imm Gran Pct Auto 0.6 % (0.0-0.4); Lymphocytes Absolute Auto 1.8 X10*3/uL (1.2-4.9); Lymphocytes Percent Auto 20.3 % (20-40); Mean Corpuscular HGB Conc 32.7 g/dl (31.0-36.0); Mean Corpuscular Hemoglobin 28.4 pg (27.0-33.0); Mean Corpuscular Volume 86.9 fL (80.0-98.0); Mean Platelet Volume 8.6 fL (9.4-12.4); Monocytes Absolute Auto 1.2 X10*3/uL (0.1-1.2); Monocytes Percent Auto 14.1 % (2-11); Neutrophils Absolute Auto 5.4 x10*3/uL (2.0-8.3); Neutrophils Percent Auto 61.7 % (45-73); Platelet Count 224 X10*3/uL (160-400); Red Blood Count 4.26 X10*6/uL (4.60-5.80); Red Cell Distribution Width 13.3 % (11.0-16.0); White Blood Count 8.8 X10*3/uL (4.8-10.8)
[2023-12-07 10:36] LABS: Alanine Aminotransferase 130 U/L (0-40); Albumin Level 3.7 g/dL (3.5-5.0); Alkaline Phosphatase 73 U/L (39-117); Anion Gap 12 (12-20); Aspartate Amino Transferase 95 U/L (5-37); Bilirubin Total 0.6 mg/dL (0.0-1.0); Blood Urea Nitrogen 16 mg/dL (9-16); Calcium 9.1 mg/dL (8.4-10.2); Carbon Dioxide 31 mmol/L (22-29); Chloride 99 mmol/L (96-108); Creatinine Clr Calc Pharmacy 118.9; Estimated Glomerular Filt Rate > 60; Glucose Random 97 mg/dL (60-115); Potassium 4.7 mmol/L (3.3-5.1); Sodium 137 mmol/L (135-145)
[2023-12-07 10:37] LABS: Ethanol < 10 mg/dL
[2023-12-07 11:45] LABS: Appearance Urine Clear; Color Urine Yellow; Glucose Urine UA Negative (Negative); Leukocyte Esterase Urine Negative (Negative); Nitrite Urine Negative (Negative); PH 7.5 (5.0-9.0); Urine Blood Negative (Negative); Urine Ketones Negative (Negative); Urine Protein Negative (Neg-Trace)
[2023-12-07] MEDS: methADONE HCl 20 MG/2 ML ORAL.CONC 75 MG PO (12:03)
--- NOTE | 2023-12-07 13:14 | MHC.CARE ---
Fe @[facility] called to accept this pt at [facility] ([address] [place] [id number]) for today 12/07/23. They would like an ETA for 5pm. The accepting provider is Dr. Russell. No nurse to nurse is required by the accepting facility. Pod RN Brennan was notified of placement to set up transport and CARE team was notified to complete section 12a for transport.
--- NOTE | 2023-12-07 13:48 | PC.NURSE ---
[facility] ambulance will come in at 5pm to pick him up.
[2023-12-07 16:28] VITALS: BP 112/69; PULSE 92; RESP 18; TEMP 37.2; O2SAT 97
== END 2023-12-07 16:41 ==
PROVIDERS: Emergency Provider Emergency Medicine; PCP Nurse Practitioner Family
DX: F41.9 Anxiety disorder, unspecified (principal); F19.10 Other psychoactive substance abuse, uncomplicated; F33.9 Major depressive disorder, recurrent, unspecified; F14.10 Cocaine abuse, uncomplicated; F11.20 Opioid dependence, uncomplicated; F17.210 Nicotine dependence, cigarettes, uncomplicated; Z79.899 Other long term (current) drug therapy
CPT/HCPCS: 36415; 80053; 80307; 81003; 85025; 99285; S9485

== ENCOUNTER 2024-03-20 01:57 | Emergency (ER) | payer OTHER, SELFPAY ==
[2024-03-20 01:58] VITALS: BP 143/96; PULSE 69; RESP 18; TEMP 36.6; O2SAT 100; BMI 20.7
--- NOTE | 2024-03-20 02:15 | MHC.EDTECH ---
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
[2024-03-20 02:28] LABS: Appearance Urine Turbid; Color Urine Dark Yellow; Glucose Urine UA Negative (Negative); Leukocyte Esterase Urine Negative (Negative); Nitrite Urine Negative (Negative); PH 5.5 (5.0-9.0); Specific Gravity - Urine >= 1.030 (1.005-1.025); UMIC TRIGGER UACC YES; Urine Blood Negative (Negative); Urine Ketones Negative (Negative); Urine Protein 30 (1+) mg/dL (Neg-Trace)
--- NOTE | 2024-03-20 02:34 | MHC.EDTECH ---
Patient blood drawn and sent to lab .
[2024-03-20 02:37] LABS: Bacteria Urine None Seen (None Seen); Hyaline Casts Urine 0-2 /LPF (0-2); RBC Urine 0-2 /HPF (0-2); WBC Urine 0-5 /HPF (0-5)
[2024-03-20 02:37] LABS: MANUAL DIFF FLAG NO
[2024-03-20 02:38] LABS: Basophils Percent Auto 0.5 % (0-2); Eosinophils Absolute Auto 0.3 X10*3/uL (0.0-0.4); Eosinophils Percent Auto 3.1 % (0-4); Hematocrit 44.2 % (42.0-52.0); Hemoglobin 14.4 g/dl (14.0-18.0); Imm Gran Abs Auto 0.02 X10*3/uL (0.00-0.03); Imm Gran Pct Auto 0.2 % (0.0-0.4); Lymphocytes Absolute Auto 2.7 X10*3/uL (1.2-4.9); Lymphocytes Percent Auto 30.7 % (20-40); Mean Corpuscular HGB Conc 32.6 g/dl (31.0-36.0); Mean Corpuscular Hemoglobin 26.5 pg (27.0-33.0); Mean Corpuscular Volume 81.4 fL (80.0-98.0); Mean Platelet Volume 9.3 fL (9.4-12.4); Monocytes Absolute Auto 0.8 X10*3/uL (0.1-1.2); Monocytes Percent Auto 8.9 % (2-11); Neutrophils Percent Auto 56.6 % (45-73); Platelet Count 242 X10*3/uL (160-400); Red Blood Count 5.43 X10*6/uL (4.60-5.80); Red Cell Distribution Width 13.8 % (11.0-16.0); White Blood Count 8.8 X10*3/uL (4.8-10.8)
[2024-03-20 02:40] LABS: Amphetamine Screen Urine Not Detected (Not Detect); Barbiturates, Urine Not Detected (Not Detect); Benzodiazepines Screen Urine Not Detected (Not Detect); Buprenorphine Scr Not Detected (Not Detect); Cannabinoid Screen Urine POSITIVE (Not Detect); Cocaine Screen Urine POSITIVE (Not Detect); Fentanyl, urine POSITIVE (Not Detect); Methadone Screen, Urine Positive (Not Detect); Opiate Screen Urine POSITIVE (Not Detect); Oxycodone Screen Urine Not Detected (Not Detect); Phencyclidine Screen Urine Not Detected (Not Detect)
[2024-03-20 02:58] LABS: Alanine Aminotransferase 10 U/L (0-40); Albumin Level 3.9 g/dL (3.5-5.0); Alkaline Phosphatase 78 U/L (39-117); Anion Gap 15 (12-20); Aspartate Amino Transferase 14 U/L (5-37); Bilirubin Total 0.5 mg/dL (0.0-1.0); Blood Urea Nitrogen 11 mg/dL (9-16); Calcium 9.4 mg/dL (8.4-10.2); Carbon Dioxide 26 mmol/L (22-29); Chloride 100 mmol/L (96-108); Creatinine Clr Calc Pharmacy 94.9; Estimated Glomerular Filt Rate > 60; Ethanol < 10 mg/dL; Glucose Random 105 mg/dL (60-115); Potassium 3.8 mmol/L (3.3-5.1); Sodium 137 mmol/L (135-145); Total Protein 7.7 g/dL (6.5-8.0)
[2024-03-20 03:43] LABS: Salicylate < 5.0 mg/dL (15-30)
--- NOTE | 2024-03-20 03:52 | ED_ITS ---
HPI - Psych General Chief Complaint: Psychiatric Symptoms Stated Complaint: Crisis Time Seen by Provider: 03/20/24 03:47 Source: patient Mode of arrival: ambulatory Limitations: no limitations History of Present Illness ED Provider: Dr. Kika Watson HPI Narrative: Patient comes to the emergency room endorsing suicidal ideation. Patient states that he feels hopeless, admits to using heroin and cocaine. Patient states that couple of weeks ago he stopped taking all of his psychiatric medications. Patient states that he missed his appointment with his psychiatric provider and his medications were not refilled. Patient denies HI Related Data Home Medications ?Medication ?Instructions ?Recorded ?Confirmed clonazepam 1 mg tablet 1 mg PO BID PRN anxiety 11/29/23 12/07/23 Previous Rx's ?Medication ?Instructions ?Recorded albuterol sulfate 90 mcg/actuation 2 inh inhalation QID PRN shortness 12/06/23 aerosol inhaler (Ventolin HFA) of breath or wheezing 30 days #8.5 grams clonidine HCl 0.1 mg tablet 0.1 mg PO Q4H PRN anxiety 30 days 12/06/23 #90 tabs hydroxyzine HCl 25 mg tablet 25 mg PO Q6H PRN mild Anxiety 30 12/06/23 days #60 tabs lidocaine 4 % topical patch 1 patch transdermal DAILY 30 days 12/06/23 (Lidocaine Pain Relief) #30 ea magnesium oxide 400 mg (241.3 mg 400 mg PO BEDTIME 30 days #30 tabs 12/06/23 magnesium) tablet methadone 10 mg/mL oral 75 mg (7.5 mL) PO DAILY #0 mL 12/06/23 concentrate (Methadose) multivitamin (Daily-Jabier tablet) 1 tab PO DAILY 30 days #30 tabs 12/06/23 quetiapine 100 mg tablet 100 mg PO BEDTIME 30 days #30 tabs 12/06/23 thiamine mononitrate (vit B1) 100 100 mg PO DAILY 30 days #30 tabs 12/06/23 mg tablet trazodone 50 mg tablet 50 mg PO BEDTIME PRN Insomnia 30 12/06/23 days #30 tabs clonazepam 1 mg tablet 1 mg PO BID 7 days #14 tabs 02/27/24 mirtazapine 7.5 mg tablet 7.5 mg PO BEDTIME 30 days #30 tabs 02/27/24 paroxetine HCl 20 mg tablet 20 mg PO DAILY 30 days #30 tabs 02/27/24 Allergies Allergy/AdvReac Type Severity Reaction Status Date / Time amoxicillin [Amoxicillin] Allergy Mild SWELLING Verified 03/20/24 02:00 Penicillins Allergy Mild SWELLING Verified 03/20/24 02:00 penicillin V Allergy Unknown unknown Verified 03/20/24 02:00 Doxycycline Hyclate Allergy Unknown unknown Uncoded 10/18/23 19:17 Review of Systems 2 Review of Systems: Constitutional : No Weight loss, No Fever, No Chills, No Night Sweats, No Fatigue, No Malaise ENT/Mouth : No Hearing loss, No Ear Pain, No Nasal Congestion, No Sinus Pain, No Hoarseness, No sore throat, No Rhinorrhea, No Swallowing Difficulty Eyes: No Eye Pain, No Swelling, No Redness, No Foreign Body, No Discharge, No Vision Changes Cardiovascular : No Chest Pain, No SOB, No Dyspnea on Exertion, No Orthopnea, No Edema, No Palpitations Respiratory : No Cough, No Sputum, No Wheezing, No Smoke Exposure, No Dyspnea Gastrointestinal : No Nausea, No Vomiting, No Diarrhea, No Constipation, No abdominal Pain, No Hematochezia, No Melena Genitourinary : no irregular bleeding, No Dysuria, No Urinary Frequency, No Hematuria, No Urinary Incontinence, No Urgency, No Flank Pain, No Urinary Flow Changes, No Hesitancy Musculoskeletal : No joint pain, No Myalgias, No Joint Swelling Skin : No Skin Lesions, No rash Neuro : No Weakness, No Numbness, No Paresthesias, No Loss of Consciousness, No Dizziness, No Headache Psych : Complaining of anxiety, depression, vague SI, no HI, patient homeless Heme/Lymph: No Bruising, No Bleeding,No Lymphadenopathy Endocrine : No Polyuria, No Polydipsia, No Temperature Intolerance [facility] Past Medical History Medical History Polysubstance abuse Cocaine use disorder Opioid use disorder MDD (major depressive disorder), recurrent severe, without psychosis Anxiety and depression Anxiety Surgical History No pertinent past surgical history Family History Family History Father COPD (chronic obstructive pulmonary disease) Mother Cancer Maternal Uncle Mental health disorder Paternal Uncle Mental health disorder Social History Social History Household Members: None Housing: Homeless Do you presently have visiting nurse or other home services: No Alcohol intake: never Patient Tobacco Use Status: Current everyday Tobacco user Tobacco use type: Cigarette Cigarette Packs Per Day: 1 Cigarettes Per Day: 10 Smoked in Last 30 Days: Yes e-Cigarette/Vaping Use: Currently Using Second Hand Smoke Exposure: Yes Use of substances other than those prescribed or required for medical reasons: Yes Substance Use Type: Crack/Cocaine and Heroin Substance Use Frequency: Chronic Longstanding Last Used Substance: Just Prior to Admission Do you have a plan to hurt others: No Plan service: No Current occupational status: unemployed Sexual orientation: Straight/Heterosexual Cognitive needs: No Hearing needs: No Vision needs: No Physical Exam 2 Vital Signs: Vital Signs: Last Vital Signs Temp 97.9 F 03/20/24 01:58 Pulse 69 03/20/24 01:58 Resp 18 03/20/24 01:58 BP 143/96 H 03/20/24 01:58 Pulse Ox 100 03/20/24 01:58 O2 Del Method Room Air 03/20/24 01:58 BMI result Body Mass Index 20.7 Const: Other: Appearance: Alert. Oriented X3. No acute distress. Eyes: Pupils equal, round and reactive to light. ENT: Pharynx normal. Neck: Normal inspection. Neck supple. No lymph nodes noted. No crepitus CVS: Normal heart rate and rhythm. Pulses normal. Normal S1 and S2 Respiratory: No respiratory distress. Breath sounds normal. No Wheezing. No rales Abdomen: Soft and nontender. No rigidity. No distention. Skin: Skin warm and dry. Normal skin color. Normal skin turgor. Extremities: No lower extremity edema. No Lacerations. No Rash Neuro: Oriented X 3. No motor deficit. No sensory deficit. Moving all extremities. No slurred speech. CN 2 through 12 grossly intact Psych: calm, cooperative, normal affect Medical Decision Making Medical Decision Making MDM Narrative: My interpretation of labs: Normal hematology, no chemistry abnormality LFTs normal, urinalysis negative for UTI, toxicology positive for opiates, methadone, fentanyl, cocaine, marijuana, negative for EtOH -patient came in voluntarily seeking help. -care team consult pending -physician observation started at 03:45 Differential Diagnosis Differential Diagnoses: The differential diagnosis associated with the presentation includes (Anxiety, depression, polysubstance abuse) Admission/Observation Consideration of admission/observation: Escalation of care including admission/observation considered (Patient is waiting to be seen by the care team, under physician observation) Lab Data MDM Lab Attestation statement: I reviewed the patient's lab results. 03/20/24 02:33 03/20/24 02:33 Labs: Lab Results 03/20/24 03/20/24 Range/Units 02:20 02:33 WBC 8.8 (4.8-10.8) X10*3/uL RBC 5.43 D (4.60-5.80) X10*6/uL Hgb 14.4 (14.0-18.0) g/dl Hct 44.2 (42.0-52.0) % MCV 81.4 (80.0-98.0) fL MCH 26.5 L (27.0-33.0) pg MCHC 32.6 (31.0-36.0) g/dl RDW 13.8 (11.0-16.0) % Plt Count 242 (160-400) X10*3/uL MPV 9.3 L (9.4-12.4) fL Immature Gran % (Auto) 0.2 (0.0-0.4) % Neut % (Auto) 56.6 (45-73) % Lymph % (Auto) 30.7 (20-40) % [place] % (Auto) 8.9 (2-11) % Eos % (Auto) 3.1 (0-4) % Baso % (Auto) 0.5 (0-2) % Lymph # (Auto) 2.7 (1.2-4.9) X10*3/uL [place] # (Auto) 0.8 (0.1-1.2) X10*3/uL Eos # (Auto) 0.3 (0.0-0.4) X10*3/uL Baso # (Auto) 0.0 (0.0-0.2) X10*3/uL Abs Immat Gran (auto) 0.02 (0.00-0.03) X10*3/uL Absolute Neuts (auto) 5.0 (2.0-8.3) x10*3/uL Absolute Nucleated RBC 0.000 (0.0-0.012) X10*3/uL Nucleated RBC % (auto) 0.0 (0.0-0.2) /100WBC Sodium 137 (135-145) mmol/L Potassium 3.8 (3.3-5.1) mmol/L Chloride 100 (96-108) mmol/L Carbon Dioxide 26 (22-29) mmol/L Anion Gap 15 (12-20) BUN 11 (9-16) mg/dL Creatinine 0.92 (0.5-1.4) mg/dL Estim Creat Clear Calc 94.9 Estimated GFR > 60 Random Glucose 105 (60-115) mg/dL Calcium 9.4 (8.4-10.2) mg/dL Total Bilirubin 0.5 (0.0-1.0) mg/dL AST 14 (5-37) U/L ALT 10 (0-40) U/L Alkaline Phosphatase 78 (39-117) U/L Total Protein 7.7 (6.5-8.0) g/dL Albumin 3.9 (3.5-5.0) g/dL Urine Color Dark Yellow Urine Appearance Turbid Urine pH 5.5 (5.0-9.0) Ur Specific [place] >= 1.030 H (1.005-1.025) Urine Protein 30 (1+) H (Neg-Trace) mg/dL Urine Glucose (UA) Negative (Negative) mg/dL Urine Ketones Negative (Negative) mg/dL Urine Blood Negative (Negative) Urine Nitrite Negative (Negative) Ur Leukocyte Esterase Negative (Negative) Urine RBC 0-2 (0-2) /HPF Urine WBC 0-5 (0-5) /HPF Ur Squamous Epith Cells 3-5 (0-2) /HPF Urine Bacteria None Seen (None Seen) Hyaline Casts 0-2 (0-2) /LPF Salicylates < 5.0 L (15-30) mg/dL Urine Opiates Screen POSITIVE H (Not Detect) Ur Buprenorphine Scrn Not Detected (Not Detect) ng/mL Ur Oxycodone Screen Not Detected (Not Detect) ng/mL Urine Methadone Screen Positive H (Not Detect) ng/mL Urine Fentanyl Screen POSITIVE H (Not Detect) Ur Barbiturates Screen Not Detected (Not Detect) Ur Phencyclidine Scrn Not Detected (Not Detect) Ur Amphetamines Screen Not Detected (Not Detect) U Benzodiazepines Scrn Not Detected (Not Detect) Urine Cocaine Screen POSITIVE H (Not Detect) U Marijuana (THC) Screen POSITIVE H (Not Detect) Ethyl Alcohol < 10 mg/dL Critical Care Time Critical Care Time Critical Care Time: Yes Total Critical Care Time: 30 Attestation: I have personally provided critical care time. Time includes review of lab data, radiology results, discussion with consultants, and monitoring for potential decompensation. Intervention performed as documented. Discharge Plan Discharge Clinical Impression: Depression, Polysubstance abuse Patient Disposition: Still a Patient Prescriptions: No Action mirtazapine 7.5 mg tablet 7.5 mg PO BEDTIME 30 Days Qty: 30 1RF paroxetine HCl 20 mg tablet 20 mg PO DAILY 30 Days Qty: 30 1RF clonazepam 1 mg tablet 1 mg PO BID 7 Days Qty: 14 0RF Rx Instructions: administer 30 minutes before bedtime clonazepam 1 mg tablet 1 mg PO BID PRN (Reason: anxiety) clonidine HCl 0.1 mg Tablet 0.1 mg PO Q4H PRN (Reason: anxiety) 30 Days Qty: 90 1RF Protocol: Hold for SBP< HOLD for SBP < : 90 hydroxyzine HCl 25 mg Tablet 25 mg PO Q6H PRN (Reason: mild Anxiety) 30 Days Qty: 60 1RF methadone [Methadose] 10 mg/mL Concentrate 75 mg PO DAILY Qty: 0 0RF Patient Comments: Per Patient: Last dose received inpatient at [facility] Rx Instructions: Partial Fill upon patient request. quetiapine 100 mg Tablet 100 mg PO BEDTIME 30 Days Qty: 30 1RF trazodone 50 mg Tablet 50 mg PO BEDTIME PRN (Reason: Insomnia) 30 Days Qty: 30 1RF magnesium oxide 400 mg (241.3 mg magnesium) Tablet 400 mg PO BEDTIME 30 Days Qty: 30 1RF lidocaine [Lidocaine Pain Relief] 4 % Adhesive Patch,Medicated 1 patch transdermal DAILY 30 Days Qty: 30 1RF Protocol: Apply to: Apply to: back Rx Instructions: back pain multivitamin [Daily-Jabier] Tablet 1 tab PO DAILY 30 Days Qty: 30 0RF thiamine mononitrate (vit B1) 100 mg Tablet 100 mg PO DAILY 30 Days Qty: 30 0RF albuterol sulfate [Ventolin HFA] 90 mcg/actuation HFA aerosol inhaler 2 inh inhalation QID PRN (Reason: shortness of breath or wheezing) 30 Days Qty: 8.5 1RF Interventions: [place]-Suicide Risk Severity Scale Last Done: 03/20/24 02:16 Print Language: Senegalese
[2024-03-20 04:22] VITALS: RESP 16
[2024-03-20 06:21] VITALS: BP 137/64; PULSE 72; RESP 16; TEMP 36.8; O2SAT 97
--- NOTE | 2024-03-20 06:22 | MHC.EDTECH ---
0600 rounding done ,vitals taken ,Patient continue sleeping ,1: 1 Sitter continue to be at bedside .
--- NOTE | 2024-03-20 09:59 | PC.NURSE ---
methadone dose verified and he takes 85mg and last dosed on 03/16/24. pt states he hasn't taken any other meds for 3 weeks, Dr Cespedes states we would not be continuing his meds
--- NOTE | 2024-03-20 10:07 | ECG_ITS ---
Test Reason : ADMISSION/BED SEARCH Blood Pressure : / mmHG Vent. Rate : 072 BPM Atrial Rate : 072 BPM P-R Int : 138 ms QRS Dur : 084 ms QT Int : 408 ms P-R-T Axes : 063 071 054 degrees QTc Int : 446 ms Normal sinus rhythm Normal ECG When compared with ECG of 05-DEC-2023 10:26, No significant change was found Referred By: Kika Watson Electronically Signed By:LAZARA VICK
--- NOTE | 2024-03-20 10:21 | HE.PHANOTE ---
Addendum entered by Angeles Durbin [facility] 03/20/24 10:23: Reached out to Maye regarding 25% dose reduction, who noted Misti Day stated if pt is A&O he can receive full dose. Original Note: RE: methadone Last dose 85mg at [facility] on 03/16/24
--- NOTE | 2024-03-20 12:16 | MHC.CARE ---
Addendum entered by Eunice Hernandez 03/20/24 13:05: Aniyah/ke was notified that the earliest Pt can be picked up is 5:00PM, so arrival time at [facility] would be 7:00PM. Jenniffer spoke with Jethro at [facility] who stated this is fine. Addendum entered by Eunice Hernandez 03/20/24 12:50: Jenniffer spoke with Angie at ext [phone] and gave the above accepting information for scheduling transportation for Pt to [facility]. Original Note: Jenniffer spoke with Jethro at [facility] ([phone]) and secured a dual placement at [facility]/ , [address] [place] [id number] Montalvo is the accepting doc. ETA is 4:00PM. Care Team notified and ED RN informed of placement.
[2024-03-20] MEDS: methADONE HCl 20 MG/2 ML ORAL.CONC 85 MG PO (12:37)
[2024-03-20 15:00] VITALS: BP 134/83; PULSE 63; RESP 16; TEMP 37.4; O2SAT 100
[2024-03-20 18:48] VITALS: BP 142/74; PULSE 87; RESP 16; TEMP 37.1; O2SAT 99
== END 2024-03-20 18:49 | disposition still patient (30) ==
PROVIDERS: Emergency Provider Emergency Medicine; PCP Nurse Practitioner Family
DX: F33.1 Major depressive disorder, recurrent, moderate (principal); R45.851 Suicidal ideations; F11.10 Opioid abuse, uncomplicated; F14.10 Cocaine abuse, uncomplicated; F41.9 Anxiety disorder, unspecified; F17.210 Nicotine dependence, cigarettes, uncomplicated; Z79.899 Other long term (current) drug therapy
CPT/HCPCS: 36415; 80053; 80179; 80307; 81001; 85025; 93005; 99285; S9485

== ENCOUNTER 2024-04-21 06:38 | Emergency (ER) | payer OTHER, SELFPAY ==
[2024-04-21 06:45] VITALS: BP 122/74; PULSE 83; RESP 20; TEMP 36.5; O2SAT 96; BMI 23.4
--- NOTE | 2024-04-21 07:18 | PC.NURSE ---
Patient denies SI/ HI just states feel hopeless. Reports no pain, states last used cocaine and fentanyl last night
--- NOTE | 2024-04-21 07:27 | ED_ITS ---
HPI - General Adult General Chief complaint: General Medical Stated complaint: crisis Time Seen by Provider: 04/21/24 07:18 Source: patient, RN notes reviewed and old records reviewed Mode of arrival: ambulatory History of Present Illness ED Provider: Libia Chung PA-C HPI narrative: 43-year-old male with a past medical history polysubstance use disorder, major depressive disorder, anxiety, presenting to the ED complaining of hopelessness and substance abuse. States was recently discharged from hospital in [place] for psych. Admits to using cocaine and heroin. Denies SI/HI, recent injury/trauma or fall, ETOH use Related Data Home Medications ?Medication ?Instructions ?Recorded ?Confirmed methadone 10 mg/mL oral 85 mg PO DAILY 03/20/24 03/20/24 concentrate (Methadose) Previous Rx's ?Medication ?Instructions ?Recorded mirtazapine 7.5 mg tablet 7.5 mg PO BEDTIME 30 days #30 tabs 02/27/24 paroxetine HCl 20 mg tablet 20 mg PO DAILY 30 days #30 tabs 02/27/24 Allergies Allergy/AdvReac Type Severity Reaction Status Date / Time amoxicillin [Amoxicillin] Allergy Mild SWELLING Verified 04/21/24 06:47 Penicillins Allergy Mild SWELLING Verified 04/21/24 06:47 penicillin V Allergy Unknown unknown Verified 04/21/24 06:47 Doxycycline Hyclate Allergy Unknown unknown Uncoded 04/21/24 06:47 Review of Systems 2 Review of Systems: Yes all other systems are reviewed and are negative Constitutional: Constitutional: Reports as per [facility] Past Medical History Attestation statement: The following information was validated with the patient. Source: old records reviewed Medical History Polysubstance abuse Cocaine use disorder Opioid use disorder MDD (major depressive disorder), recurrent severe, without psychosis Anxiety and depression Anxiety Surgical History No pertinent past surgical history Family History Family History Father COPD (chronic obstructive pulmonary disease) Mother Cancer Maternal Uncle Mental health disorder Paternal Uncle Mental health disorder Social History Social History Household Members: None Housing: Homeless Do you presently have visiting nurse or other home services: No Alcohol intake: former Patient Tobacco Use Status: Current everyday Tobacco user Tobacco use type: Cigarette Cigarette Packs Per Day: 1 Cigarettes Per Day: 10 Smoked in Last 30 Days: Yes e-Cigarette/Vaping Use: Currently Using Second Hand Smoke Exposure: Yes Use of substances other than those prescribed or required for medical reasons: Yes Substance Use Type: Crack/Cocaine and Other Substance Use Type Other:: fentanyl Advance Directives: No Advance Directives Information Provided: Yes Do you have a plan to hurt others: No Plan service: No Current occupational status: unemployed Sexual orientation: Straight/Heterosexual Cognitive needs: No Hearing needs: No Vision needs: No Physical Exam ED Vital Signs: Vital Signs - 24 hr 04/21/24 06:45 04/21/24 09:02 Temperature 97.7 F 98.6 F Pulse Rate 83 85 Respiratory Rate 20 16 Blood Pressure 122/74 114/60 Pulse Oximetry 96 96 Oxygen Delivery Method Room Air Room Air BMI result Body Mass Index 23.4 Const General: cooperative, healthy appearing and no acute distress Orientation/consciousness: patient oriented x3 Limitations: no limitations HENMT Head: Yes normal to inspection and Yes atraumatic Ears: hearing grossly normal bilaterally General nose exam: Normal external nose present Face and sinus: Yes normal facial exam Eyes General: appearance normal, both eyes and all related structures EOM: EOMs intact bilaterally Neck Neck: Yes normal visual inspection and Yes no meningeal signs Resp Effort & Inspection: normal respiratory effort and no respiratory distress Cardio Rate: regular rate GI Inspection: Yes normal to inspection Skin Rashes: no rashes Wounds: no wounds Neuro General: patient oriented x3, gait normal, tone normal, no meningeal signs and CN's II-XI intact bilaterally Cranial nerves: Yes CN's II-XII intact bilaterally Gait exam (Neuro): Normal gait present Extrem General: Yes normal to inspection Psych Speech and movement: Normal speech and movement present Attitude: cooperative Thought content: suicidality and no homicidality Course Course Course Narrative: -30--no leukocytosis. Labs otherwise reassuring. Tox screen positive for opiates, methadone, fentanyl, benzos, cocaine, THC > physician observation initiated at 08:51 as patient needs more time to be evaluated by CARE team -patient was evaluated by CARE team, denies SI/HI. Just signed out from dual program on Sunday. Does not want detox, and or hope for Thomas. Does not want a lyft. States he is going to walk somewhere Results discussed with patient including worrisome signs and symptoms and strict return precautions, and when to return to the emergency department. They verbalized understanding and feel safe for discharge at this time. Medical Decision Making Medical Decision Making [facility] Narrative: 43-year-old male with a past medical history polysubstance use disorder, major depressive disorder, anxiety, presenting to the ED complaining of hopelessness and substance abuse. On exam vital signs stable, NAD, nontoxic appearing, patient states he does not want to speak right now. Denies SI/HI. Concern for substance abuse vs increasing depression. Plan: Labs, tox screen, CARE team consult Please refer to course for remaining clinical decision making, interpretation of labs/imaging results, and discussions with consultants and/or family members. Differential Diagnosis Differential Diagnoses: The differential diagnosis associated with the presentation includes As above Admission/Observation Consideration of admission/observation: Escalation of care including admission/observation considered Consult Healthcare Provider Management of the patient was discussed with: Behavioral Health Provider Lab Data [facility] Lab Attestation statement: I reviewed the patient's lab results. 04/21/24 07:59 04/21/24 07:59 Labs: Lab Results 04/21/24 Range/Units 07:59 WBC 6.2 (4.8-10.8) X10*3/uL RBC 4.54 L (4.60-5.80) X10*6/uL Hgb 12.1 L (14.0-18.0) g/dl Hct 35.5 L (42.0-52.0) % MCV 78.2 L (80.0-98.0) fL MCH 26.7 L (27.0-33.0) pg MCHC 34.1 (31.0-36.0) g/dl RDW 14.6 (11.0-16.0) % Plt Count 202 (160-400) X10*3/uL MPV 9.2 L (9.4-12.4) fL Immature Gran % (Auto) 0.3 (0.0-0.4) % Neut % (Auto) 53.2 (45-73) % Lymph % (Auto) 28.2 (20-40) % [place] % (Auto) 13.3 H (2-11) % Eos % (Auto) 4.5 H (0-4) % Baso % (Auto) 0.5 (0-2) % Lymph # (Auto) 1.7 (1.2-4.9) X10*3/uL [place] # (Auto) 0.8 (0.1-1.2) X10*3/uL Eos # (Auto) 0.3 (0.0-0.4) X10*3/uL Baso # (Auto) 0.0 (0.0-0.2) X10*3/uL Abs Immat Gran (auto) 0.02 (0.00-0.03) X10*3/uL Absolute Neuts (auto) 3.3 (2.0-8.3) x10*3/uL Absolute Nucleated RBC 0.000 (0.0-0.012) X10*3/uL Nucleated RBC % (auto) 0.0 (0.0-0.2) /100WBC Sodium 137 (135-145) mmol/L Potassium 3.3 (3.3-5.1) mmol/L Chloride 101 (96-108) mmol/L Carbon Dioxide 27 (22-29) mmol/L Anion Gap 12 (12-20) BUN 15 (9-16) mg/dL Creatinine 0.69 (0.5-1.4) mg/dL Estim Creat Clear Calc 145.4 Estimated GFR > 60 Random Glucose 108 (60-115) mg/dL Calcium 8.7 D (8.4-10.2) mg/dL Total Bilirubin 0.8 (0.0-1.0) mg/dL Direct Bilirubin 0.3 (0.0-0.5) mg/dL AST 28 (5-37) U/L ALT 17 (0-40) U/L Alkaline Phosphatase 69 (39-117) U/L Total Protein 6.9 (6.5-8.0) g/dL Albumin 3.9 (3.5-5.0) g/dL Salicylates < 5.0 L (15-30) mg/dL Urine Opiates Screen POSITIVE H (Not Detect) Ur Buprenorphine Scrn Not Detected (Not Detect) ng/mL Ur Oxycodone Screen Not Detected (Not Detect) ng/mL Urine Methadone Screen Positive H (Not Detect) ng/mL Urine Fentanyl Screen POSITIVE H (Not Detect) Acetaminophen < 3 (<30) mcg/mL Ur Barbiturates Screen Not Detected (Not Detect) Ur Phencyclidine Scrn Not Detected (Not Detect) Ur Amphetamines Screen Not Detected (Not Detect) U Benzodiazepines Scrn POSITIVE H (Not Detect) Urine Cocaine Screen POSITIVE H (Not Detect) U Marijuana (THC) Screen POSITIVE H (Not Detect) Ethyl Alcohol < 10 mg/dL Influenza Type A (PCR) NEGATIVE (Negative) Influenza Type B (PCR) NEGATIVE (Negative) RSV RNA Qual (PCR) NEGATIVE (Negative) SARS-CoV-2 RNA (RT-PCR) NEGATIVE (Negative) Radiology Impression Discussion of test interpretation with radiology: I have reviewed the radiologist's reading. External Record Review External record reviewed: Inpatient record, Office record, Outpatient record, Prior outpatient labs, Prior outpatient radiology, Primary care record and Outside ED record Tests considered The following testing was considered but not selected: As above Social Determinants Patient?s care significantly limited by Social Determinants of Health including: Inadequate housing, Low income, Alcoholism and drug addiction in family, Problems related to primary support group, Unemployment, Problems related to employment and Other Social Determinant of Health Discharge Plan Discharge Clinical Impression: Hopelessness, Polysubstance use disorder Patient Disposition: Still a Patient Prescriptions: No Action mirtazapine 7.5 mg tablet 7.5 mg PO BEDTIME 30 Days Qty: 30 1RF paroxetine HCl 20 mg tablet 20 mg PO DAILY 30 Days Qty: 30 1RF methadone [Methadose] 10 mg/mL concentrate 85 mg PO DAILY Rx Instructions: Partial Fill upon patient request. Print Language: Indian
[2024-04-21 08:04] LABS: MANUAL DIFF FLAG NO
[2024-04-21 08:05] LABS: Basophils Percent Auto 0.5 % (0-2); Eosinophils Absolute Auto 0.3 X10*3/uL (0.0-0.4); Eosinophils Percent Auto 4.5 % (0-4); Hematocrit 35.5 % (42.0-52.0); Hemoglobin 12.1 g/dl (14.0-18.0); Imm Gran Abs Auto 0.02 X10*3/uL (0.00-0.03); Imm Gran Pct Auto 0.3 % (0.0-0.4); Lymphocytes Absolute Auto 1.7 X10*3/uL (1.2-4.9); Lymphocytes Percent Auto 28.2 % (20-40); Mean Corpuscular HGB Conc 34.1 g/dl (31.0-36.0); Mean Corpuscular Hemoglobin 26.7 pg (27.0-33.0); Mean Corpuscular Volume 78.2 fL (80.0-98.0); Mean Platelet Volume 9.2 fL (9.4-12.4); Monocytes Absolute Auto 0.8 X10*3/uL (0.1-1.2); Monocytes Percent Auto 13.3 % (2-11); Neutrophils Absolute Auto 3.3 x10*3/uL (2.0-8.3); Neutrophils Percent Auto 53.2 % (45-73); Platelet Count 202 X10*3/uL (160-400); Red Blood Count 4.54 X10*6/uL (4.60-5.80); Red Cell Distribution Width 14.6 % (11.0-16.0); White Blood Count 6.2 X10*3/uL (4.8-10.8)
[2024-04-21 08:19] LABS: Amphetamine Screen Urine Not Detected (Not Detect); Barbiturates, Urine Not Detected (Not Detect); Benzodiazepines Screen Urine POSITIVE (Not Detect); Buprenorphine Scr Not Detected (Not Detect); Cannabinoid Screen Urine POSITIVE (Not Detect); Cocaine Screen Urine POSITIVE (Not Detect); Fentanyl, urine POSITIVE (Not Detect); Methadone Screen, Urine Positive (Not Detect); Opiate Screen Urine POSITIVE (Not Detect); Oxycodone Screen Urine Not Detected (Not Detect); Phencyclidine Screen Urine Not Detected (Not Detect)
[2024-04-21 08:22] LABS: Acetaminophen LAB < 3 mcg/mL (<30); Alanine Aminotransferase 17 U/L (0-40); Albumin Level 3.9 g/dL (3.5-5.0); Alkaline Phosphatase 69 U/L (39-117); Anion Gap 12 (12-20); Aspartate Amino Transferase 28 U/L (5-37); Bilirubin Direct 0.3 mg/dL (0.0-0.5); Bilirubin Total 0.8 mg/dL (0.0-1.0); Blood Urea Nitrogen 15 mg/dL (9-16); Calcium 8.7 mg/dL (8.4-10.2); Carbon Dioxide 27 mmol/L (22-29); Chloride 101 mmol/L (96-108); Creatinine Clr Calc Pharmacy 145.4; Estimated Glomerular Filt Rate > 60; Ethanol < 10 mg/dL; Glucose Random 108 mg/dL (60-115); Potassium 3.3 mmol/L (3.3-5.1); Salicylate < 5.0 mg/dL (15-30); Sodium 137 mmol/L (135-145); Total Protein 6.9 g/dL (6.5-8.0)
[2024-04-21 08:46] LABS: Influenza A PCR NEGATIVE (Negative); Influenza B PCR NEGATIVE (Negative); Resp Syncy Virus RNA Qual PCR NEGATIVE (Negative); SARS COV2 PCR INHOUSE NEGATIVE (Negative)
[2024-04-21 09:02] VITALS: BP 114/60; PULSE 85; RESP 16; TEMP 37; O2SAT 96
[2024-04-21 10:59] VITALS: BP 114/60; PULSE 85; RESP 18; TEMP 37; O2SAT 96
== END 2024-04-21 11:00 | disposition home or self-care (01) ==
PROVIDERS: Physician Assistant; Emergency Provider Emergency Medicine; PCP Nurse Practitioner Family
DX: F33.1 Major depressive disorder, recurrent, moderate (principal); F14.10 Cocaine abuse, uncomplicated; F11.10 Opioid abuse, uncomplicated; Z51.81 Encounter for therapeutic drug level monitoring; Z03.818 Encounter for observation for suspected exposure to other biological agents ruled out; Z79.899 Other long term (current) drug therapy
CPT/HCPCS: 0241U; 80048; 80076; 80143; 80179; 80307; 85025; 99284; S9485

== ENCOUNTER 2024-08-08 05:43 | Inpatient (IN) | payer OTHER, SELFPAY ==
--- NOTE | 2024-08-08 | ECG_ITS ---
Test Reason : RULE OUT PROLONGED QTC Blood Pressure : */* mmHG Vent. Rate : 65 BPM Atrial Rate : 65 BPM P-R Int : 140 ms QRS Dur : 80 ms QT Int : 438 ms P-R-T Axes : 73 76 69 degrees QTcB Int : 455 ms Normal sinus rhythm Normal ECG When compared with ECG of 20-Mar-2024 10:29, No significant change was found Referred By: Yashira Florez Electronically Signed By: KARL STEPHENS
[2024-08-08 05:49] VITALS: BP 137/82; PULSE 73; RESP 20; TEMP 36.2; O2SAT 98; BMI 21.5
[2024-08-08 06:00] VITALS: RESP 16
--- NOTE | 2024-08-08 06:23 | PC.NURSE ---
patient search conducted by t/w, which reveaked no contraband however client had diffuse pick/injection sites, patient seemed a difficult stick and reported to me im not current on any meds besides methadone but i should be on gabapentin and anti anxiety medications
[2024-08-08 06:33] LABS: MANUAL DIFF FLAG NO
[2024-08-08 06:34] LABS: Basophils Percent Auto 0.3 % (0-2); Eosinophils Absolute Auto 0.1 X10*3/uL (0.0-0.4); Eosinophils Percent Auto 1.1 % (0-4); Hematocrit 40.4 % (42.0-52.0); Hemoglobin 13.4 g/dl (14.0-18.0); Imm Gran Abs Auto 0.04 X10*3/uL (0.00-0.03); Imm Gran Pct Auto 0.4 % (0.0-0.4); Lymphocytes Absolute Auto 2.6 X10*3/uL (1.2-4.9); Lymphocytes Percent Auto 26.2 % (20-40); Mean Corpuscular HGB Conc 33.2 g/dl (31.0-36.0); Mean Corpuscular Hemoglobin 26.9 pg (27.0-33.0); Mean Platelet Volume 9.2 fL (9.4-12.4); Monocytes Absolute Auto 0.8 X10*3/uL (0.1-1.2); Monocytes Percent Auto 8.1 % (2-11); Neutrophils Absolute Auto 6.2 x10*3/uL (2.0-8.3); Neutrophils Percent Auto 63.9 % (45-73); Platelet Count 254 X10*3/uL (160-400); Red Blood Count 4.99 X10*6/uL (4.60-5.80); Red Cell Distribution Width 13.7 % (11.0-16.0); White Blood Count 9.7 X10*3/uL (4.8-10.8)
--- NOTE | 2024-08-08 06:41 | ED.GENADULT ---
HPI - General Adult General Chief complaint: Psychiatric Symptoms Stated complaint: gen med Time Seen by Provider: 08/08/24 06:40 Source: patient Mode of arrival: ambulatory Limitations: no limitations History of Present Illness ED Provider: Yashira Florez PA-C HPI narrative: Patient is a 43 year old assigned male at with a history of opiate use disorder, cocaine use disorder, MDD, and anxiety presenting to the emergency department today with suicidal ideation. Patient states that he has been feeling the desire to hurt himself over the last few days. Patient states that he does not have a plan at this time. Patient denies any dizziness, lightheadedness, abdominal pain, nausea, vomiting, fever, chills, blurry vision, double vision, loss of vision, chest pain, difficulty breathing, shortness of breath, back pain, night sweats, pain with urination, increased urinary frequency, increased urinary urgency, blood in his urine or stool, syncope or a near syncopal episode, recent trauma or falls, bowel incontinence, bladder incontinence, or any other complaints at this time. Onset (ago): day(s) Relieving factors: none Exacerbating factors: none Associated symptoms: denies other symptoms Treatments prior to arrival: none Related Data Home Medications ?Medication ?Instructions ?Recorded ?Confirmed methadone 10 mg/mL oral 85 mg PO DAILY 03/20/24 03/20/24 concentrate (Methadose) Allergies Allergy/AdvReac Type Severity Reaction Status Date / Time amoxicillin [Amoxicillin] Allergy Mild SWELLING Verified 08/08/24 05:50 Penicillins Allergy Mild SWELLING Verified 08/08/24 05:50 penicillin V Allergy Unknown unknown Verified 08/08/24 05:50 Doxycycline Hyclate Allergy Unknown unknown Uncoded 04/21/24 06:47 Review of Systems Constitutional: Constitutional: Reports no additional constitutional complaints, Denies chills, Denies fever(s) and Denies night sweats Eyes: Eyes: Reports no additional eye complaints, Denies blurry vision, Denies change in vision, Denies diplopia, Denies eye discharge, Denies loss of vision and Denies eye pain ENT: Denies dizziness Cardiovascular: Cardiovascular: Reports no additional cardiovascular complaints, Denies chest pain, Denies lightheadedness, Denies Loss of Consciousness and Denies dyspnea Respiratory: Respiratory: Reports no additional respiratory complaints and Denies dyspnea Gastrointestinal: Gastrointestinal: Reports no additional gastrointestinal complaints, Denies abdominal pain, Denies melena, Denies hematochezia, Denies change in bowel habits and Denies change in stool character Genitourinary: Genitourinary: Reports no additional male genitourinary complaints, Denies hematuria, Denies oliguria, Denies difficulty urinating, Denies dysuria, Denies urinary frequency, Denies urinary hesitancy, Denies urinary incontinence and Denies urinary urgency Musculoskeletal: Musculoskeletal: Reports no additional musculoskeletal complaints, Denies numbness and Denies tingling Neurologic: Denies dizziness, Denies loss of vision, Denies numbness and Denies tingling Psychiatric: Psychiatric: Reports no additional psychiatric complaints, Denies homicidal ideation and Reports suicidal ideation Endocrine: Endocrine: Reports no additional endocrine complaints Hematologic/Lymphatic: Hematologic/Lymphatic: Reports no additional hematologic/lymphatic complaints Allergic/Immunologic: Allergic/Immunologic: Reports no additional allergic/immunologic complaints PMFSH Past Medical History Attestation statement: The following information was validated with the patient. Source: old records reviewed and nursing notes reviewed Medical History Polysubstance abuse Cocaine use disorder Opioid use disorder MDD (major depressive disorder), recurrent severe, without psychosis Anxiety and depression Anxiety Surgical History No pertinent past surgical history Family History Family History Father COPD (chronic obstructive pulmonary disease) Mother Cancer Maternal Uncle Mental health disorder Paternal Uncle Mental health disorder Social History Social History Household Members: None Housing: Homeless Do you presently have visiting nurse or other home services: No Alcohol intake: former Patient Tobacco Use Status: Current everyday Tobacco user Tobacco use type: Cigarette Cigarette Packs Per Day: 1 Cigarettes Per Day: 10 e-Cigarette/Vaping Use: Currently Using Second Hand Smoke Exposure: Yes Substance Use Type: Crack/Cocaine and Other Advance Directives: No Advance Directives Information Provided: Yes Do you have a plan to hurt others: No Plan service: No Current occupational status: unemployed Sexual orientation: Straight/Heterosexual Cognitive needs: No Hearing needs: No Vision needs: No Physical Exam ED Vital Signs: Vital Signs - 24 hr 08/08/24 05:49 Temperature 97.1 F Pulse Rate 73 Respiratory Rate 20 Blood Pressure 137/82 Pulse Oximetry 98 Oxygen Delivery Method Room Air BMI result Body Mass Index 21.5 Const General: cooperative, no acute distress, alert and awake Nutritional Appearance: well nourished Orientation/consciousness: patient oriented x3 Limitations: no limitations HENMT Head: Yes normal to inspection and Yes atraumatic Ears: hearing grossly normal bilaterally and external ears normal General nose exam: Normal external nose present, no nasal discharge noted and no epistaxis Face and sinus: Yes normal facial exam, No abrasion and No laceration Mouth: Normal oral and palatal mucosa present, no drooling and no muffled voice Eyes General: appearance normal, both eyes and all related structures Periorbital: periorbital findings normal Eyelids: Yes eyelids normal Conjunctivae: conjunctivae normal Pupils: Equal, round and reactive pupils present EOM: EOMs intact bilaterally Neck Neck: Yes normal visual inspection, Yes full ROM and Yes no lymphadenopathy Chest Chest palpation & inspection: normal inspection of the chest Resp Effort & Inspection: normal respiratory effort and able to speak in complete sentences GI Inspection: Yes normal to inspection Neuro General: patient oriented x3 and moves all extremities Cranial nerves: Yes Equal, round and reactive pupils present Cognition (Neuro): normal cognition Extrem General: Yes normal to inspection, Yes full ROM and Yes capillary refill normal Psych Appearance: grossly normal Mental Status: mental status grossly normal Affect: Sad affect present Attitude: cooperative Thought process: Normal thought process present Thought content: Suicidality present Medical Decision Making Medical Decision Making [facility] Narrative: Patient is a 43 year old assigned male at with a history of opiate use disorder, cocaine use disorder, MDD, and anxiety presenting to the emergency department today with suicidal ideation. Patient's physical exam was as noted in the physical exam portion of this note. Patient's blood work was unremarkable. I explained my physical exam findings as well as all test results to the patient. I answered all questions asked by the patient. Patient's disposition is pending CARE eval. Differential Diagnosis Differential Diagnoses: The differential diagnosis associated with the presentation includes SI Depression Admission/Observation Consideration of admission/observation: Escalation of care including admission/observation considered Patient's disposition is pending CARE team evaluation. Lab Data [facility] Lab Attestation statement: I reviewed the patient's lab results. My interpretation of these results are in the MDM Rationale portion of this note. 08/08/24 06:26 08/08/24 06:26 Labs: Lab Results 08/08/24 Range/Units 06:26 WBC 9.7 (4.8-10.8) X10*3/uL RBC 4.99 (4.60-5.80) X10*6/uL Hgb 13.4 L (14.0-18.0) g/dl Hct 40.4 L (42.0-52.0) % MCV 81.0 (80.0-98.0) fL MCH 26.9 L (27.0-33.0) pg MCHC 33.2 (31.0-36.0) g/dl RDW 13.7 (11.0-16.0) % Plt Count 254 D (160-400) X10*3/uL MPV 9.2 L (9.4-12.4) fL Immature Gran % (Auto) 0.4 (0.0-0.4) % Neut % (Auto) 63.9 (45-73) % Lymph % (Auto) 26.2 (20-40) % [place] % (Auto) 8.1 (2-11) % Eos % (Auto) 1.1 (0-4) % Baso % (Auto) 0.3 (0-2) % Lymph # (Auto) 2.6 (1.2-4.9) X10*3/uL [place] # (Auto) 0.8 (0.1-1.2) X10*3/uL Eos # (Auto) 0.1 (0.0-0.4) X10*3/uL Baso # (Auto) 0.0 (0.0-0.2) X10*3/uL Abs Immat Gran (auto) 0.04 H (0.00-0.03) X10*3/uL Absolute Neuts (auto) 6.2 (2.0-8.3) x10*3/uL Absolute Nucleated RBC 0.000 (0.0-0.012) X10*3/uL Nucleated RBC % (auto) 0.0 (0.0-0.2) /100WBC Discharge Plan Discharge Clinical Impression: Suicidal ideation Patient Disposition: Still a Patient Prescriptions: No Action methadone [Methadose] 10 mg/mL concentrate 85 mg PO DAILY Rx Instructions: Partial Fill upon patient request. Interventions: [place]-Suicide Risk Severity Scale Last Done: 08/08/24 06:12 Print Language: Malaysian
[2024-08-08 06:46] LABS: Amphetamine Screen Urine Not Detected (Not Detect); Barbiturates, Urine Not Detected (Not Detect); Benzodiazepines Screen Urine Not Detected (Not Detect); Buprenorphine Scr Not Detected (Not Detect); Cannabinoid Screen Urine POSITIVE (Not Detect); Cocaine Screen Urine POSITIVE (Not Detect); Fentanyl, urine POSITIVE (Not Detect); Methadone Screen, Urine Positive (Not Detect); Opiate Screen Urine POSITIVE (Not Detect); Oxycodone Screen Urine Not Detected (Not Detect); Phencyclidine Screen Urine Not Detected (Not Detect)
[2024-08-08 06:54] LABS: Alanine Aminotransferase 8 U/L (0-40); Albumin Level 3.8 g/dL (3.5-5.0); Alkaline Phosphatase 71 U/L (39-117); Anion Gap 13 (12-20); Aspartate Amino Transferase 26 U/L (5-37); Bilirubin Total 0.3 mg/dL (0.0-1.0); Blood Urea Nitrogen 8 mg/dL (9-16); Carbon Dioxide 25 mmol/L (22-29); Chloride 102 mmol/L (96-108); Creatinine Clr Calc Pharmacy 128.1; Estimated Glomerular Filt Rate > 60; Ethanol < 10 mg/dL; Glucose Random 105 mg/dL (60-115); Potassium 3.3 mmol/L (3.3-5.1); Sodium 137 mmol/L (135-145); Total Protein 7.4 g/dL (6.5-8.0)
--- NOTE | 2024-08-08 07:16 | PC.NURSE ---
Assumed care of patient at 0645, patient appears to be sleeping, respirations even and unlabored, no apparent distress noted. Continue plan of care for CARE team debbie
--- NOTE | 2024-08-08 08:11 | HE.PHANOTE ---
RE: METHADONE DOSING Last dose of methadone 85 mg was given on 08/07/24 1431 at [facility] [place] [phone] per ROBERT Ron.
[2024-08-08] MEDS: methADONE HCl 20 MG/2 ML ORAL.CONC 85 MG PO (11:39)
[2024-08-08 13:46] LABS: Appearance Urine Clear; Color Urine Yellow; Glucose Urine UA Negative (Negative); Leukocyte Esterase Urine Negative (Negative); Nitrite Urine Negative (Negative); Specific Gravity - Urine 1.015 (1.005-1.025); Urine Blood Negative (Negative); Urine Ketones Negative (Negative); Urine Protein Negative (Neg-Trace)
[2024-08-08] MEDS: hydrOXYzine HCL 25 MG TABLET PO (14:40)
--- NOTE | 2024-08-08 15:23 | HO.PSYADMNOT ---
[facility] Date of Service: 08/08/24 Chief Complaint: Crisis Sources of Information: patient interviewed, chart reviewed and crisis/core team assessment reviewed HPI Subjective Notes: Bennett Warning and Conditional Voluntary Narrative: Patient is a 43-year-old male with history of MDD, opiate use disorder and cocaine use disorder who self presented [place] [facility] due to suicidal ideation with no plan secondary to increased depression. Per crisis report, patient reported suicidal ideation and advocating for dual diagnosis unit. Patient reports poor sleep and appetite. He reports not being on any psychiatric medications at this time. Denies HI/VH/AH. Patient reports 2 prior inpatient psychiatric hospitalizations but does not have outpatient psychiatric providers. Utox positive for opiates, methadone, fentanyl, cocaine and marijuana. Patient reports feeling depressed and hopeless. During admission assessment, patient presents alert and oriented x3. Calm and cooperative. Patient reports feeling anxious and depressed ; patient stated, life is making me depressed and suicidal. I have no family, I'm homeless . Patient reports suicidal ideation with no plan. Denies HI/VH/AH. Patient reports he would like help restarting on his psychiatric medications, referral to outpatient psychiatric providers and would like to think about going to either a substance abuse program or respite after discharge. Past Psychiatric History: History of 2 prior inpatient psychiatric hospitalizations. Does not have outpatient psychiatric providers. Medical Evaluation Reviewed: Yes [facility] Medical History Polysubstance abuse Cocaine use disorder Opioid use disorder MDD (major depressive disorder), recurrent severe, without psychosis Anxiety and depression Anxiety Surgical History No pertinent past surgical history Family History: Unknown Social History: Homeless. Single. One adult child. Disability. Highest level of education completed 9th grade. Substance History: Patient reports IV heroin and cocaine use. Also smokes marijuana daily. U tox positive for opiates, methadone, fentanyl, cocaine, marijuana. Trauma History: Yes Diagnostics Vital Signs (24Hr): Vital Signs - 24 hr 08/08/24 05:49 08/08/24 06:00 Temperature 97.1 F Pulse Rate 73 Respiratory Rate 20 16 Blood Pressure 137/82 Pulse Oximetry 98 Oxygen Delivery Method Room Air BMI result Body Mass Index 21.5 Labs 08/08/24 06:26 08/08/24 06:26 Labs: Laboratory Results - last 48 hr 08/08/24 08/08/24 06:26 06:31 WBC 9.7 RBC 4.99 Hgb 13.4 L Hct 40.4 L MCV 81.0 MCH 26.9 L MCHC 33.2 RDW 13.7 Plt Count 254 D MPV 9.2 L Immature Gran % (Auto) 0.4 Neut % (Auto) 63.9 Lymph % (Auto) 26.2 [place] % (Auto) 8.1 Eos % (Auto) 1.1 Baso % (Auto) 0.3 Lymph # (Auto) 2.6 [place] # (Auto) 0.8 Eos # (Auto) 0.1 Baso # (Auto) 0.0 Abs Immat Gran (auto) 0.04 H Absolute Neuts (auto) 6.2 Absolute Nucleated RBC 0.000 Nucleated RBC % (auto) 0.0 Sodium 137 Potassium 3.3 Chloride 102 Carbon Dioxide 25 Anion Gap 13 BUN 8 L Creatinine 0.73 Estim Creat Clear Calc 128.1 Estimated GFR > 60 Random Glucose 105 Calcium 9.0 Total Bilirubin 0.3 AST 26 ALT 8 Alkaline Phosphatase 71 Total Protein 7.4 Albumin 3.8 Urine Color Yellow Urine Appearance Clear Urine pH 6.0 Ur Specific [place] 1.015 Urine Protein Negative Urine Glucose (UA) Negative Urine Ketones Negative Urine Blood Negative Urine Nitrite Negative Ur Leukocyte Esterase Negative Urine Opiates Screen POSITIVE H Ur Buprenorphine Scrn Not Detected Ur Oxycodone Screen Not Detected Urine Methadone Screen Positive H Urine Fentanyl Screen POSITIVE H Ur Barbiturates Screen Not Detected Ur Phencyclidine Scrn Not Detected Ur Amphetamines Screen Not Detected U Benzodiazepines Scrn Not Detected Urine Cocaine Screen POSITIVE H U Marijuana (THC) Screen POSITIVE H Ethyl Alcohol < 10 Meds/Allergies Meds Home Medications ?Medication ?Instructions ?Recorded ?Confirmed ?Type methadone 10 mg/mL oral 85 mg PO DAILY 03/20/24 08/08/24 History concentrate (Methadose) Allergies Allergies Allergy/AdvReac Type Severity Reaction Status Date / Time amoxicillin [Amoxicillin] Allergy Mild SWELLING Verified 08/08/24 05:50 Penicillins Allergy Mild SWELLING Verified 08/08/24 05:50 penicillin V Allergy Unknown unknown Verified 08/08/24 05:50 Doxycycline Hyclate Allergy Unknown unknown Uncoded 04/21/24 06:47 Mental Status Exam Mental Status Exam Narrative: Pt is alert and oriented; behavior is cooperative; dressed in casual attire; mood is described as depressed and anxious ; eye contact appropriate; Speech is normal rate, volume and not pressured; thought process is organized and goal directed; Thought content is on tx; denies HI/AH/VH. Patient reports suicidal ideation with no plan. Assessment & Plan Assessment & Plan (1) MDD (major depressive disorder), recurrent severe, without psychosis: Status: Acute Code(s): F33.2 - Major depressive disorder, recurrent severe without psychotic features (2) Opioid use disorder: Status: Acute Code(s): F11.90 - Opioid use, unspecified, uncomplicated (3) Cocaine use disorder: Status: Acute Code(s): F14.10 - Cocaine abuse, uncomplicated (4) Homelessness: Status: Acute Code(s): Z59.00 - Homelessness unspecified Plan Patient is a 43-year-old male with history of MDD, opiate use disorder and cocaine use disorder who self presented to [facility] due to suicidal ideation with no plan secondary to increased depression. Plan: CV 15 minute safety checks Reviewed prior medications/restart Encourage groups Referral to outpatient psychiatric providers Discharge planning Patient educated on: diagnosis and medication risk/benefits Reason for continued inpatient stay Substantial Risk for: harm to self and med/psych decompensation Statement Statement: I have reviewed the history and physical and performed a pertinent examination on my patient. No changes have occurred unless specified. If the History and Physical was not performed prior to admission, the Hospitalist's service will be consulted for completing the admission physical. Time Spent With Patient Time: Total time managing care of this patient today _60___ minutes.
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
--- NOTE | 2024-08-08 16:36 | PC.NURSE ---
Pt refused flu vaccine at this time
[2024-08-08 19:43] VITALS: BP 108/60; PULSE 79; RESP 18; TEMP 37.1; O2SAT 96
[2024-08-08 20:23] VITALS: BP 108/60
[2024-08-08] MEDS: Melatonin 3 MG TABLET PO (20:23)
[2024-08-08] MEDS: Gabapentin 100 MG CAPSULE 200 MG PO (20:23)
[2024-08-08] MEDS: traZODone HCL 50 MG TABLET PO (20:23)
[2024-08-08] MEDS: QUEtiapine Fumarate 100 MG TABLET PO (20:23)
[2024-08-08] MEDS: cloNIDine HCL 0.1 MG TABLET PO (20:23)
[2024-08-09] MEDS: Acetaminophen 325 MG TABLET 650 MG PO ×2 (04:17→13:46)
[2024-08-09] MEDS: hydrOXYzine HCL 50 MG TABLET PO ×2 (04:17→09:44)
[2024-08-09 07:39] VITALS: BP 105/53; PULSE 65; RESP 16; TEMP 36.7; O2SAT 96
--- NOTE | 2024-08-09 08:45 | P.PNPSI_ITS ---
Subjective Subjective Date of Service: 08/09/24 Reason For Visit: Crisis Subjective Notes: Conditional Voluntary Interim History: Keeping to self. laying in bed. pt reports he feels tired because I'm going through withdrawals . pt reports sleeping well last night. denies SI/HI/VH/AH. Pt requesting Thorazine for anxiety/agitation; start: thorazine 25mg PO Q6HR PRN Medication Compliance: Yes Side effects from medications: No Attending Groups: No Mental Status Exam Mental Status Exam Narrative: Pt is alert and oriented; behavior is cooperative; dressed in casual attire; mood is described as depressed and anxious ; eye contact appropriate; Speech is normal rate, volume and not pressured; thought process is organized and goal directed; Thought content is on tx; denies SI/HI/AH/VH. Diagnostics Vital Signs (24Hr): Vital Signs - 24 hr 08/08/24 19:43 08/08/24 20:23 08/09/24 07:39 Temperature 98.8 F 98.0 F Pulse Rate 79 65 Respiratory Rate 18 16 Blood Pressure 108/60 108/60 105/53 L Pulse Oximetry 96 96 Oxygen Delivery Method Room Air Room Air BMI result Body Mass Index 21.5 Labs 08/08/24 06:26 08/08/24 06:26 Labs: Laboratory Results - last 48 hr 08/08/24 08/08/24 06:26 06:31 WBC 9.7 RBC 4.99 Hgb 13.4 L Hct 40.4 L MCV 81.0 MCH 26.9 L MCHC 33.2 RDW 13.7 Plt Count 254 D MPV 9.2 L Immature Gran % (Auto) 0.4 Neut % (Auto) 63.9 Lymph % (Auto) 26.2 [place] % (Auto) 8.1 Eos % (Auto) 1.1 Baso % (Auto) 0.3 Lymph # (Auto) 2.6 [place] # (Auto) 0.8 Eos # (Auto) 0.1 Baso # (Auto) 0.0 Abs Immat Gran (auto) 0.04 H Absolute Neuts (auto) 6.2 Absolute Nucleated RBC 0.000 Nucleated RBC % (auto) 0.0 Sodium 137 Potassium 3.3 Chloride 102 Carbon Dioxide 25 Anion Gap 13 BUN 8 L Creatinine 0.73 Estim Creat Clear Calc 128.1 Estimated GFR > 60 Random Glucose 105 Calcium 9.0 Total Bilirubin 0.3 AST 26 ALT 8 Alkaline Phosphatase 71 Total Protein 7.4 Albumin 3.8 Urine Color Yellow Urine Appearance Clear Urine pH 6.0 Ur Specific [place] 1.015 Urine Protein Negative Urine Glucose (UA) Negative Urine Ketones Negative Urine Blood Negative Urine Nitrite Negative Ur Leukocyte Esterase Negative Urine Opiates Screen POSITIVE H Ur Buprenorphine Scrn Not Detected Ur Oxycodone Screen Not Detected Urine Methadone Screen Positive H Urine Fentanyl Screen POSITIVE H Ur Barbiturates Screen Not Detected Ur Phencyclidine Scrn Not Detected Ur Amphetamines Screen Not Detected U Benzodiazepines Scrn Not Detected Urine Cocaine Screen POSITIVE H U Marijuana (THC) Screen POSITIVE H Ethyl Alcohol < 10 Medications Medications Current Medications Acetaminophen (Acetaminophen 325 Mg Tablet) 650 mg PO Q6H PRN PRN Reason: Headache/Pain Mild Scale (1-3) Last Admin: 08/09/24 04:17 Dose: 650 mg Al Hydroxide/Mg Hydroxide (Magnesium Hydrox/Alum Hydrox 30 Ml Oral.Susp) 30 ml PO Q6H PRN PRN Reason: Heartburn/Nausea Albuterol Sulfate (Albuterol Sulfate 90 Mcg 8 Gm Inhaler) 1 puff INHALE RQ4H PRN PRN Reason: Shortness of Breath Clonidine HCl (Clonidine Hcl 0.1 Mg Tablet) 0.1 mg PO BID PRN; Protocol PRN Reason: anxiety/restlessness Last Admin: 08/08/24 20:23 Dose: 0.1 mg Gabapentin (Gabapentin 100 Mg Capsule) 200 mg PO BID STEPH Last Admin: 08/08/24 20:23 Dose: 200 mg Hydroxyzine HCl (Hydroxyzine Hcl 50 Mg Tablet) 50 mg PO Q6H PRN PRN Reason: Anxiety Last Admin: 08/09/24 04:17 Dose: 50 mg Magnesium Hydroxide (Milk Of Magnesia 30 Ml Oral.Susp) 30 ml PO DAILY PRN PRN Reason: Constipation Melatonin (Melatonin 3 Mg Tablet) 3 mg PO BEDTIME PRN PRN Reason: Insomnia Last Admin: 08/08/24 20:23 Dose: 3 mg Methadone HCl (Methadone Hcl 20 Mg/2 Ml Oral.Conc) 85 mg PO DAILY [facility] Last Admin: 08/08/24 11:39 Dose: 85 mg Nicotine (Nicotine 21 Mg Patch.Td24) 21 mg TRANSDERMA DAILY [facility] Nicotine Polacrilex (Nicotine Polacrilex 2 Mg Gum) 4 mg BUCCAL Q2H PRN PRN Reason: Nicotine Cravings Paroxetine HCl (Paroxetine Hcl 20 Mg Tablet) 20 mg PO DAILY [facility] Quetiapine Fumarate (Quetiapine Fumarate 100 Mg Tablet) 100 mg PO BEDTIME STEPH Last Admin: 08/08/24 20:23 Dose: 100 mg Trazodone HCl (Trazodone Hcl 50 Mg Tablet) 50 mg PO BEDTIME MRX1 PRN PRN Reason: Insomnia Last Admin: 08/08/24 20:23 Dose: 50 mg Allergies Allergies Allergy/AdvReac Type Severity Reaction Status Date / Time amoxicillin [Amoxicillin] Allergy Mild SWELLING Verified 08/08/24 05:50 Penicillins Allergy Mild SWELLING Verified 08/08/24 05:50 penicillin V Allergy Unknown unknown Verified 08/08/24 05:50 Doxycycline Hyclate Allergy Unknown unknown Uncoded 04/21/24 06:47 Assessment & Plan Assessment & Plan (1) MDD (major depressive disorder), recurrent severe, without psychosis: Status: Acute Code(s): F33.2 - Major depressive disorder, recurrent severe without psychotic features (2) Opioid use disorder: Status: Acute Code(s): F11.90 - Opioid use, unspecified, uncomplicated (3) Cocaine use disorder: Status: Acute Code(s): F14.10 - Cocaine abuse, uncomplicated (4) Homelessness: Status: Acute Code(s): Z59.00 - Homelessness unspecified Plan Patient is a 43-year-old male with history of MDD, opiate use disorder and cocaine use disorder who self presented to [facility] due to suicidal ideation with no plan secondary to increased depression. Plan: CV 15 minute safety checks Reviewed prior medications/restart Encourage groups Referral to outpatient psychiatric providers Discharge planning 08/09: Keeping to self. laying in bed. pt reports he feels tired because I'm going through withdrawals . pt reports sleeping well last night. denies SI/HI/VH/AH. Pt requesting Thorazine for anxiety/agitation; start: thorazine 25mg PO Q6HR PRN Patient educated on: diagnosis, medication risk/benefits and therapeutic strategies Reason for continued inpatient stay Substantial Risk for: med/psych decompensation Time Spent With Patient Time: Total time managing care of this patient today _20___ minutes.
[2024-08-09] MEDS: Gabapentin 100 MG CAPSULE 200 MG PO ×2 (09:35→21:13)
[2024-08-09] MEDS: PARoxetine HCL 20 MG TABLET PO (09:35)
[2024-08-09] MEDS: methADONE HCl 20 MG/2 ML ORAL.CONC 85 MG PO (09:38)
[2024-08-09 19:52] VITALS: BP 109/68; PULSE 57; RESP 16; TEMP 36.5; O2SAT 98
[2024-08-09] MEDS: Ibuprofen 600 MG TABLET PO (21:14)
[2024-08-09] MEDS: chlorproMAZINE HCl 25 MG TABLET PO (21:14)
[2024-08-09 21:15] VITALS: BP 110/72
[2024-08-09] MEDS: cloNIDine HCL 0.1 MG TABLET PO (21:15)
[2024-08-09] MEDS: QUEtiapine Fumarate 100 MG TABLET PO (21:16)
[2024-08-09] MEDS: traZODone HCL 50 MG TABLET PO (21:16)
[2024-08-09] MEDS: Melatonin 3 MG TABLET PO (21:17)
[2024-08-10 07:53] VITALS: BP 114/70; PULSE 55; RESP 16; TEMP 36.7; O2SAT 96
[2024-08-10] MEDS: Gabapentin 100 MG CAPSULE 200 MG PO ×2 (08:11→21:46)
[2024-08-10] MEDS: PARoxetine HCL 20 MG TABLET PO (08:11)
[2024-08-10] MEDS: hydrOXYzine HCL 50 MG TABLET PO ×3 (08:16→21:52)
[2024-08-10] MEDS: chlorproMAZINE HCl 25 MG TABLET PO (08:16)
--- NOTE | 2024-08-10 09:01 | HO.PSYCHPN ---
Subjective Subjective Date of Service: 08/10/24 Reason For Visit: Crisis Subjective Notes: Conditional Voluntary Interim History: laying in bed most of the day. continue to report feeling anxious and depressed; requested to stop thorazine and switch for seroquel instead. DC thorazine. Start: seroquel 25mg PO 0900,1500. per nursing, slept 8 hours last night. encouraged to attend groups. denies SI/HI/VH/AH. Medication Compliance: Yes Side effects from medications: No Attending Groups: No Mental Status Exam Mental Status Exam Narrative: Pt is alert and oriented; behavior is cooperative; dressed in casual attire; mood is described as depressed and anxious ; eye contact appropriate; Speech is normal rate, volume and not pressured; thought process is organized; Thought content is on tx; denies SI/HI/AH/VH. Diagnostics Vital Signs (24Hr): Vital Signs - 24 hr 08/09/24 19:52 08/09/24 21:15 08/10/24 07:53 Temperature 97.7 F 98.1 F Pulse Rate 57 55 Respiratory Rate 16 16 Blood Pressure 109/68 110/72 114/70 Pulse Oximetry 98 96 Oxygen Delivery Method Room Air Room Air BMI result Body Mass Index 21.5 Labs 08/08/24 06:26 08/08/24 06:26 Labs: Laboratory Results - last 48 hr 08/08/24 06:31 Urine Color Yellow Urine Appearance Clear Urine pH 6.0 Ur Specific Cobb 1.015 Urine Protein Negative Urine Glucose (UA) Negative Urine Ketones Negative Urine Blood Negative Urine Nitrite Negative Ur Leukocyte Esterase Negative Medications Medications Current Medications Acetaminophen (Acetaminophen 325 Mg Tablet) 650 mg PO Q6H PRN PRN Reason: Headache/Pain Mild Scale (1-3) Last Admin: 08/09/24 13:46 Dose: 650 mg Al Hydroxide/Mg Hydroxide (Magnesium Hydrox/Alum Hydrox 30 Ml Oral.Susp) 30 ml PO Q6H PRN PRN Reason: Heartburn/Nausea Albuterol Sulfate (Albuterol Sulfate 90 Mcg 8 Gm Inhaler) 1 puff INHALE RQ4H PRN PRN Reason: Shortness of Breath Chlorpromazine HCl (Chlorpromazine Hcl 25 Mg Tablet) 25 mg PO Q6H PRN PRN Reason: agitation Last Admin: 08/10/24 08:16 Dose: 25 mg Clonidine HCl (Clonidine Hcl 0.1 Mg Tablet) 0.1 mg PO BID PRN; Protocol PRN Reason: anxiety/restlessness Last Admin: 08/09/24 21:15 Dose: 0.1 mg Gabapentin (Gabapentin 100 Mg Capsule) 200 mg PO BID [facility] Last Admin: 08/10/24 08:11 Dose: 200 mg Hydroxyzine HCl (Hydroxyzine Hcl 50 Mg Tablet) 50 mg PO Q6H PRN PRN Reason: Anxiety Last Admin: 08/10/24 08:16 Dose: 50 mg Ibuprofen (Ibuprofen 600 Mg Tablet) 600 mg PO Q8H PRN PRN Reason: Pain, Moderate(Pain Scale 4-6) Last Admin: 08/09/24 21:14 Dose: 600 mg Magnesium Hydroxide (Milk Of Magnesia 30 Ml Oral.Susp) 30 ml PO DAILY PRN PRN Reason: Constipation Melatonin (Melatonin 3 Mg Tablet) 3 mg PO BEDTIME [facility] Last Admin: 08/09/24 21:17 Dose: 3 mg Methadone HCl (Methadone Hcl 20 Mg/2 Ml Oral.Conc) 85 mg PO DAILY [facility] Last Admin: 08/09/24 09:38 Dose: 85 mg Nicotine Polacrilex (Nicotine Polacrilex 2 Mg Gum) 4 mg BUCCAL Q2H PRN PRN Reason: Nicotine Cravings Ondansetron HCl (Ondansetron Odt 8 Mg Tab.Rapdis) 8 mg TRANSLINGU Q12H PRN PRN Reason: Nausea and Vomiting Paroxetine HCl (Paroxetine Hcl 20 Mg Tablet) 20 mg PO DAILY [facility] Last Admin: 08/10/24 08:11 Dose: 20 mg Quetiapine Fumarate (Quetiapine Fumarate 100 Mg Tablet) 100 mg PO BEDTIME [facility] Last Admin: 08/09/24 21:16 Dose: 100 mg Trazodone HCl (Trazodone Hcl 50 Mg Tablet) 50 mg PO BEDTIME MRX1 PRN PRN Reason: Insomnia Last Admin: 08/09/24 21:16 Dose: 50 mg Allergies Allergies Allergy/AdvReac Type Severity Reaction Status Date / Time amoxicillin [Amoxicillin] Allergy Mild SWELLING Verified 08/08/24 05:50 Penicillins Allergy Mild SWELLING Verified 08/08/24 05:50 penicillin V Allergy Unknown unknown Verified 08/08/24 05:50 Doxycycline Hyclate Allergy Unknown unknown Uncoded 04/21/24 06:47 Assessment & Plan Assessment & Plan (1) MDD (major depressive disorder), recurrent severe, without psychosis: Status: Acute Code(s): F33.2 - Major depressive disorder, recurrent severe without psychotic features (2) Opioid use disorder: Status: Acute Code(s): F11.90 - Opioid use, unspecified, uncomplicated (3) Cocaine use disorder: Status: Acute Code(s): F14.10 - Cocaine abuse, uncomplicated (4) Homelessness: Status: Acute Code(s): Z59.00 - Homelessness unspecified Plan Patient is a 43-year-old male with history of MDD, opiate use disorder and cocaine use disorder who self presented to [facility] due to suicidal ideation with no plan secondary to increased depression. Plan: CV 15 minute safety checks Reviewed prior medications/restart Encourage groups Referral to outpatient psychiatric providers Discharge planning 08/09: Keeping to self. laying in bed. pt reports he feels tired because I'm going through withdrawals . pt reports sleeping well last night. denies SI/HI/VH/AH. Pt requesting Thorazine for anxiety/agitation; start: thorazine 25mg PO Q6HR PRN 08/10: laying in bed most of the day. continue to report feeling anxious and depressed; requested to stop thorazine and switch for seroquel instead. DC thorazine. Start: seroquel 25mg PO 0900,1500. per nursing, slept 8 hours last night. encouraged to attend groups. denies SI/HI/VH/AH. Patient educated on: diagnosis, medication risk/benefits and therapeutic strategies Reason for continued inpatient stay Substantial Risk for: med/psych decompensation Time Spent With Patient Time: Total time managing care of this patient today _20___ minutes.
[2024-08-10] MEDS: methADONE HCl 20 MG/2 ML ORAL.CONC 85 MG PO (10:28)
[2024-08-10] MEDS: QUEtiapine Fumarate 25 MG TABLET PO (15:45)
[2024-08-10 19:00] VITALS: BP 114/59; PULSE 60; RESP 16; TEMP 36.4; O2SAT 97
[2024-08-10] MEDS: QUEtiapine Fumarate 100 MG TABLET PO (21:47)
[2024-08-10] MEDS: traZODone HCL 50 MG TABLET PO (21:52)
[2024-08-10 21:53] VITALS: BP 118/75
[2024-08-10] MEDS: cloNIDine HCL 0.1 MG TABLET PO (21:53)
[2024-08-10] MEDS: Ibuprofen 600 MG TABLET PO (21:54)
[2024-08-10] MEDS: Melatonin 3 MG TABLET PO (22:14)
[2024-08-11 07:50] VITALS: BP 117/68; PULSE 61; RESP 16; TEMP 36.7; O2SAT 99
[2024-08-11] MEDS: methADONE HCl 20 MG/2 ML ORAL.CONC 85 MG PO (08:12)
[2024-08-11] MEDS: Gabapentin 100 MG CAPSULE 200 MG PO ×2 (08:31→20:46)
[2024-08-11] MEDS: PARoxetine HCL 20 MG TABLET PO (08:32)
[2024-08-11] MEDS: QUEtiapine Fumarate 25 MG TABLET PO ×2 (08:32→15:39)
--- NOTE | 2024-08-11 11:22 | HO.PSYCHPN ---
Subjective Subjective Date of Service: 08/11/24 Reason For Visit: Crisis Subjective Notes: Conditional Voluntary Interim History: Keeping to self. laying in bed. continue to report feeling depressed; Pt reports he would like to be referred to the [facility]. drop worker, olvin Strickland. Pt encouraged to shower and attend groups; which he says he will. denies SI/HI/VH/AH. Continue current tx plan. Medication Compliance: Yes Side effects from medications: No Attending Groups: No Mental Status Exam Mental Status Exam Narrative: Pt is alert and oriented; behavior is cooperative; dressed in casual attire; mood is described as depressed ; eye contact appropriate; Speech is normal rate, volume and not pressured; thought process is organized; Thought content is on tx; denies SI/HI/AH/VH. Diagnostics Vital Signs (24Hr): Vital Signs - 24 hr 08/10/24 19:00 08/10/24 21:53 08/11/24 07:50 Temperature 97.6 F 98.1 F Pulse Rate 60 61 Respiratory Rate 16 16 Blood Pressure 114/59 L 118/75 117/68 Pulse Oximetry 97 99 Oxygen Delivery Method Room Air Room Air BMI result Body Mass Index 21.5 Labs 08/08/24 06:26 08/08/24 06:26 Medications Medications Current Medications Acetaminophen (Acetaminophen 325 Mg Tablet) 650 mg PO Q6H PRN PRN Reason: Headache/Pain Mild Scale (1-3) Last Admin: 08/09/24 13:46 Dose: 650 mg Al Hydroxide/Mg Hydroxide (Magnesium Hydrox/Alum Hydrox 30 Ml Oral.Susp) 30 ml PO Q6H PRN PRN Reason: Heartburn/Nausea Albuterol Sulfate (Albuterol Sulfate 90 Mcg 8 Gm Inhaler) 1 puff INHALE RQ4H PRN PRN Reason: Shortness of Breath Clonidine HCl (Clonidine Hcl 0.1 Mg Tablet) 0.1 mg PO BID PRN; Protocol PRN Reason: anxiety/restlessness Last Admin: 08/10/24 21:53 Dose: 0.1 mg Gabapentin (Gabapentin 100 Mg Capsule) 200 mg PO BID [facility] Last Admin: 08/11/24 08:31 Dose: 200 mg Hydroxyzine HCl (Hydroxyzine Hcl 50 Mg Tablet) 50 mg PO Q6H PRN PRN Reason: Anxiety Last Admin: 08/10/24 21:52 Dose: 50 mg Ibuprofen (Ibuprofen 600 Mg Tablet) 600 mg PO Q8H PRN PRN Reason: Pain, Moderate(Pain Scale 4-6) Last Admin: 08/10/24 21:54 Dose: 600 mg Magnesium Hydroxide (Milk Of Magnesia 30 Ml Oral.Susp) 30 ml PO DAILY PRN PRN Reason: Constipation Melatonin (Melatonin 3 Mg Tablet) 3 mg PO BEDTIME [facility] Last Admin: 08/10/24 22:14 Dose: 3 mg Methadone HCl (Methadone Hcl 20 Mg/2 Ml Oral.Conc) 85 mg PO DAILY@0800 [facility] Last Admin: 08/11/24 08:12 Dose: 85 mg Nicotine Polacrilex (Nicotine Polacrilex 2 Mg Gum) 4 mg BUCCAL Q2H PRN PRN Reason: Nicotine Cravings Ondansetron HCl (Ondansetron Odt 8 Mg Tab.Rapdis) 8 mg TRANSLINGU Q12H PRN PRN Reason: Nausea and Vomiting Paroxetine HCl (Paroxetine Hcl 20 Mg Tablet) 20 mg PO DAILY [facility] Last Admin: 08/11/24 08:32 Dose: 20 mg Quetiapine Fumarate (Quetiapine Fumarate 100 Mg Tablet) 100 mg PO BEDTIME [facility] Last Admin: 08/10/24 21:47 Dose: 100 mg Quetiapine Fumarate (Quetiapine Fumarate 25 Mg Tablet) 25 mg PO BID@0900,1500 [facility] Last Admin: 08/11/24 08:32 Dose: 25 mg Trazodone HCl (Trazodone Hcl 50 Mg Tablet) 50 mg PO BEDTIME MRX1 PRN PRN Reason: Insomnia Last Admin: 08/10/24 21:52 Dose: 50 mg Allergies Allergies Allergy/AdvReac Type Severity Reaction Status Date / Time amoxicillin [Amoxicillin] Allergy Mild SWELLING Verified 08/08/24 05:50 Penicillins Allergy Mild SWELLING Verified 08/08/24 05:50 penicillin V Allergy Unknown unknown Verified 08/08/24 05:50 Doxycycline Hyclate Allergy Unknown unknown Uncoded 04/21/24 06:47 Assessment & Plan Assessment & Plan (1) MDD (major depressive disorder), recurrent severe, without psychosis: Status: Acute Code(s): F33.2 - Major depressive disorder, recurrent severe without psychotic features (2) Opioid use disorder: Status: Acute Code(s): F11.90 - Opioid use, unspecified, uncomplicated (3) Cocaine use disorder: Status: Acute Code(s): F14.10 - Cocaine abuse, uncomplicated (4) Homelessness: Status: Acute Code(s): Z59.00 - Homelessness unspecified Plan Patient is a 43-year-old male with history of MDD, opiate use disorder and cocaine use disorder who self presented to [facility] due to suicidal ideation with no plan secondary to increased depression. Plan: CV 15 minute safety checks Reviewed prior medications/restart Encourage groups Referral to outpatient psychiatric providers Discharge planning 08/09: Keeping to self. laying in bed. pt reports he feels tired because I'm going through withdrawals . pt reports sleeping well last night. denies SI/HI/VH/AH. Pt requesting Thorazine for anxiety/agitation; start: thorazine 25mg PO Q6HR PRN 08/10: laying in bed most of the day. continue to report feeling anxious and depressed; requested to stop thorazine and switch for seroquel instead. DC thorazine. Start: seroquel 25mg PO 0900,1500. per nursing, slept 8 hours last night. encouraged to attend groups. denies SI/HI/VH/AH. /3: Keeping to self. laying in bed. continue to report feeling depressed; Pt reports he would like to be referred to the [facility]. drop worker, olvin Strickland. Pt encouraged to shower and attend groups; which he says he will. denies SI/HI/VH/AH. Continue current tx plan. Patient educated on: diagnosis, medication risk/benefits and therapeutic strategies Reason for continued inpatient stay Substantial Risk for: med/psych decompensation Time Spent With Patient Time: Total time managing care of this patient today _20___ minutes.
--- NOTE | 2024-08-11 11:28 | MHC.CLN ---
NUTRITION CONSULT FOR PATIENT REPORTED 30# WEIGHT LOSS X 2 MONTHS. REVIEW OF WEIGHT HX SHOWS WEIGHT GAIN TREND X ONE YEAR +9.8%. TOX SCREEN POSITIVE FOR MULTIPLE SUBSTANCES UPON ADMISSION AND PATIENT LIKELY POOR HISTORIAN UPON ADMISSION. PLEASE CONSULT RD IF PATIENT WITH POOR PO.
[2024-08-11] MEDS: Ibuprofen 600 MG TABLET PO (12:28)
[2024-08-11] MEDS: hydrOXYzine HCL 50 MG TABLET PO ×2 (12:28→21:22)
[2024-08-11 20:00] VITALS: BP 124/60; PULSE 63; RESP 18; TEMP 36.4; O2SAT 97
[2024-08-11] MEDS: QUEtiapine Fumarate 100 MG TABLET PO (20:46)
[2024-08-11] MEDS: Melatonin 3 MG TABLET PO (20:46)
[2024-08-11] MEDS: traZODone HCL 50 MG TABLET PO (21:22)
[2024-08-12 07:47] VITALS: BP 125/63; PULSE 73; RESP 16; TEMP 36.6; O2SAT 98
[2024-08-12 07:49] LABS: Cholesterol 122 mg/dL (<200); HDL Cholesterol 30 mg/dL (>40); LDL Cholesterol Calculated 63 mg/dL (<100); Triglycerides 148 mg/dL (<150)
[2024-08-12] MEDS: methADONE HCl 20 MG/2 ML ORAL.CONC 85 MG PO (08:05)
[2024-08-12 09:01] VITALS: BP 109/58; PULSE 64
[2024-08-12] MEDS: Gabapentin 100 MG CAPSULE 200 MG PO ×2 (09:02→21:55)
[2024-08-12] MEDS: PARoxetine HCL 20 MG TABLET PO (09:02)
[2024-08-12] MEDS: QUEtiapine Fumarate 25 MG TABLET PO ×2 (09:02→15:05)
[2024-08-12] MEDS: cloNIDine HCL 0.1 MG TABLET PO (09:03)
[2024-08-12] MEDS: Ibuprofen 600 MG TABLET PO (09:03)
--- NOTE | 2024-08-12 10:41 | HO.PSYCHPN ---
Subjective Subjective Date of Service: 08/12/24 Reason For Visit: Crisis Subjective Notes: Conditional Voluntary Interim History: Continue similar to yesterday. did not shower yesterday but states he will today. c/o cold symptoms; ordered covid/RSV/flu test;awaiting results. Pt reports he changed his mind about going to [facility] d/t hearing bad things about it . He perferes to go to a group home after discharge. denies SI/HI/VH/AH. Continue current tx plan. Medication Compliance: Yes Side effects from medications: No Attending Groups: No Mental Status Exam Mental Status Exam Narrative: Pt is alert and oriented; behavior is cooperative; dressed in casual attire; mood is described as depressed ; eye contact appropriate; Speech is normal rate, volume and not pressured; thought process is organized; Thought content is on tx; denies SI/HI/AH/VH. Diagnostics Vital Signs (24Hr): Vital Signs - 24 hr 08/11/24 20:00 08/12/24 07:47 08/12/24 09:01 Temperature 97.5 F 97.8 F Pulse Rate 63 73 64 Respiratory Rate 18 16 Blood Pressure 124/60 125/63 109/58 L Pulse Oximetry 97 98 Oxygen Delivery Method Room Air Room Air BMI result Body Mass Index 21.5 Labs 08/08/24 06:26 08/08/24 06:26 Labs: Laboratory Results - last 48 hr 08/12/24 07:22 Triglycerides 148 Cholesterol 122 LDL Cholesterol, Calc 63 HDL Cholesterol 30 L Medications Medications Current Medications Acetaminophen (Acetaminophen 325 Mg Tablet) 650 mg PO Q6H PRN PRN Reason: Headache/Pain Mild Scale (1-3) Last Admin: 08/09/24 13:46 Dose: 650 mg Al Hydroxide/Mg Hydroxide (Magnesium Hydrox/Alum Hydrox 30 Ml Oral.Susp) 30 ml PO Q6H PRN PRN Reason: Heartburn/Nausea Albuterol Sulfate (Albuterol Sulfate 90 Mcg 8 Gm Inhaler) 1 puff INHALE RQ4H PRN PRN Reason: Shortness of Breath Clonidine HCl (Clonidine Hcl 0.1 Mg Tablet) 0.1 mg PO BID PRN; Protocol PRN Reason: anxiety/restlessness Last Admin: 08/12/24 09:03 Dose: 0.1 mg Gabapentin (Gabapentin 100 Mg Capsule) 200 mg PO BID [facility] Last Admin: 08/12/24 09:02 Dose: 200 mg Hydroxyzine HCl (Hydroxyzine Hcl 50 Mg Tablet) 50 mg PO Q6H PRN PRN Reason: Anxiety Last Admin: 08/11/24 21:22 Dose: 50 mg Ibuprofen (Ibuprofen 600 Mg Tablet) 600 mg PO Q8H PRN PRN Reason: Pain, Moderate(Pain Scale 4-6) Last Admin: 08/12/24 09:03 Dose: 600 mg Magnesium Hydroxide (Milk Of Magnesia 30 Ml Oral.Susp) 30 ml PO DAILY PRN PRN Reason: Constipation Melatonin (Melatonin 3 Mg Tablet) 3 mg PO BEDTIME [facility] Last Admin: 08/11/24 20:46 Dose: 3 mg Methadone HCl (Methadone Hcl 20 Mg/2 Ml Oral.Conc) 85 mg PO DAILY@0800 [facility] Last Admin: 08/12/24 08:05 Dose: 85 mg Nicotine Polacrilex (Nicotine Polacrilex 2 Mg Gum) 4 mg BUCCAL Q2H PRN PRN Reason: Nicotine Cravings Ondansetron HCl (Ondansetron Odt 8 Mg Tab.Rapdis) 8 mg TRANSLINGU Q12H PRN PRN Reason: Nausea and Vomiting Paroxetine HCl (Paroxetine Hcl 20 Mg Tablet) 20 mg PO DAILY [facility] Last Admin: 08/12/24 09:02 Dose: 20 mg Quetiapine Fumarate (Quetiapine Fumarate 100 Mg Tablet) 100 mg PO BEDTIME [facility] Last Admin: 08/11/24 20:46 Dose: 100 mg Quetiapine Fumarate (Quetiapine Fumarate 25 Mg Tablet) 25 mg PO BID@0900,1500 [facility] Last Admin: 08/12/24 09:02 Dose: 25 mg Trazodone HCl (Trazodone Hcl 50 Mg Tablet) 50 mg PO BEDTIME MRX1 PRN PRN Reason: Insomnia Last Admin: 08/11/24 21:22 Dose: 50 mg Allergies Allergies Allergy/AdvReac Type Severity Reaction Status Date / Time amoxicillin [Amoxicillin] Allergy Mild SWELLING Verified 08/08/24 05:50 Penicillins Allergy Mild SWELLING Verified 08/08/24 05:50 penicillin V Allergy Unknown unknown Verified 08/08/24 05:50 Doxycycline Hyclate Allergy Unknown unknown Uncoded 04/21/24 06:47 Assessment & Plan Assessment & Plan (1) MDD (major depressive disorder), recurrent severe, without psychosis: Status: Acute Code(s): F33.2 - Major depressive disorder, recurrent severe without psychotic features (2) Opioid use disorder: Status: Acute Code(s): F11.90 - Opioid use, unspecified, uncomplicated (3) Cocaine use disorder: Status: Acute Code(s): F14.10 - Cocaine abuse, uncomplicated (4) Homelessness: Status: Acute Code(s): Z59.00 - Homelessness unspecified Plan Patient is a 43-year-old male with history of MDD, opiate use disorder and cocaine use disorder who self presented to [facility] due to suicidal ideation with no plan secondary to increased depression. Plan: CV 15 minute safety checks Reviewed prior medications/restart Encourage groups Referral to outpatient psychiatric providers Discharge planning 08/09: Keeping to self. laying in bed. pt reports he feels tired because I'm going through withdrawals . pt reports sleeping well last night. denies SI/HI/VH/AH. Pt requesting Thorazine for anxiety/agitation; start: thorazine 25mg PO Q6HR PRN 08/10: laying in bed most of the day. continue to report feeling anxious and depressed; requested to stop thorazine and switch for seroquel instead. DC thorazine. Start: seroquel 25mg PO 0900,1500. per nursing, slept 8 hours last night. encouraged to attend groups. denies SI/HI/VH/AH. 08/11: Keeping to self. laying in bed. continue to report feeling depressed; Pt reports he would like to be referred to the [facility]. vegetable worker, olvin Strickland. Pt encouraged to shower and attend groups; which he says he will. denies SI/HI/VH/AH. Continue current tx plan. 08/12: Continue similar to yesterday. did not shower yesterday but states he will today. c/o cold symptoms; ordered covid/RSV/flu test;awaiting results. Pt reports he changed his mind about going to [facility] d/t hearing bad things about it . He perferes to go to a group home after discharge. denies SI/HI/VH/AH. Continue current tx plan Patient educated on: medication risk/benefits and therapeutic strategies Reason for continued inpatient stay Substantial Risk for: med/psych decompensation Time Spent With Patient Time: Total time managing care of this patient today 20___ minutes.
[2024-08-12 12:41] LABS: Influenza A PCR NEGATIVE (Negative); Influenza B PCR NEGATIVE (Negative); Resp Syncy Virus RNA Qual PCR POSITIVE (Negative); SARS COV2 PCR INHOUSE NEGATIVE (Negative)
[2024-08-12] MEDS: Acetaminophen 325 MG TABLET 650 MG PO (15:05)
[2024-08-12] MEDS: Throat Lozenge, Medicated LOZENGE 1 LOZENGE MUCOUS MEM (15:06)
[2024-08-12] MEDS: guaiFENesin 100 MG/5 ML 5 ML LIQUID PO (15:11)
[2024-08-12 20:05] VITALS: BP 112/61; PULSE 65; RESP 16; TEMP 36.9; O2SAT 100
[2024-08-12] MEDS: QUEtiapine Fumarate 100 MG TABLET PO (21:55)
[2024-08-12] MEDS: Melatonin 3 MG TABLET PO (21:56)
[2024-08-12] MEDS: traZODone HCL 50 MG TABLET PO (21:58)
[2024-08-13 07:51] VITALS: BP 126/73; PULSE 71; RESP 16; TEMP 36.9; O2SAT 99
[2024-08-13] MEDS: methADONE HCl 20 MG/2 ML ORAL.CONC 85 MG PO (08:39)
[2024-08-13] MEDS: PARoxetine HCL 20 MG TABLET PO (08:50)
[2024-08-13] MEDS: QUEtiapine Fumarate 25 MG TABLET PO (08:50)
[2024-08-13] MEDS: Gabapentin 100 MG CAPSULE 200 MG PO ×2 (08:50→20:51)
[2024-08-13] MEDS: QUEtiapine Fumarate 50 MG TABLET PO (15:45)
--- NOTE | 2024-08-13 16:01 | HO.PSYCHPN ---
Subjective Subjective Date of Service: 08/13/24 Reason For Visit: Crisis Interim History: in room due to RSV. calm, cooperative. feeling discharge sunday to [facility] may be a little too soon. c/o anxiety and insomnia, agrees to double seroquel dosing. per staff, RSV +. dep/anx 9. taking meds. c/o AH. mood improving. slept 7 hours. D/C sunday to [facility]. Mental Status Exam Mental Status Exam Narrative: Pt is alert and oriented; behavior is cooperative; dressed in casual attire; mood is not assessed; eye contact appropriate; Speech is normal rate, volume and not pressured; thought process is organized; Thought content is on tx; no SI/HI/AH/VH expressed. Diagnostics Vital Signs (24Hr): Vital Signs - 24 hr 08/12/24 20:05 08/13/24 07:51 Temperature 98.4 F 98.4 F Pulse Rate 65 71 Respiratory Rate 16 16 Blood Pressure 112/61 126/73 Pulse Oximetry 100 99 Oxygen Delivery Method Room Air Room Air BMI result Body Mass Index 21.5 Labs 08/08/24 06:26 08/08/24 06:26 Labs: Laboratory Results - last 48 hr 08/12/24 08/12/24 07:22 10:22 Triglycerides 148 Cholesterol 122 LDL Cholesterol, Calc 63 HDL Cholesterol 30 L Influenza Type A (PCR) NEGATIVE Influenza Type B (PCR) NEGATIVE RSV RNA Qual (PCR) POSITIVE A SARS-CoV-2 RNA (RT-PCR) NEGATIVE Medications Medications Current Medications Acetaminophen (Acetaminophen 325 Mg Tablet) 650 mg PO Q6H PRN PRN Reason: Headache/Pain Mild Scale (1-3) Last Admin: 08/12/24 15:05 Dose: 650 mg Al Hydroxide/Mg Hydroxide (Magnesium Hydrox/Alum Hydrox 30 Ml Oral.Susp) 30 ml PO Q6H PRN PRN Reason: Heartburn/Nausea Albuterol Sulfate (Albuterol Sulfate 90 Mcg 8 Gm Inhaler) 1 puff INHALE RQ4H PRN PRN Reason: Shortness of Breath Benzocaine (Throat Lozenge, Medicated Lozenge) 1 lozenge MUCOUS MEM Q2H PRN PRN Reason: Sore Throat Last Admin: 08/12/24 15:06 Dose: 1 lozenge Clonidine HCl (Clonidine Hcl 0.1 Mg Tablet) 0.1 mg PO BID PRN; Protocol PRN Reason: anxiety/restlessness Last Admin: 08/12/24 09:03 Dose: 0.1 mg Gabapentin (Gabapentin 100 Mg Capsule) 200 mg PO BID [facility] Last Admin: 08/13/24 08:50 Dose: 200 mg Guaifenesin (Guaifenesin 100 Mg/5 Ml 5 Ml Liquid) 5 ml PO Q6H PRN PRN Reason: Cough Last Admin: 08/12/24 15:11 Dose: 5 ml Hydroxyzine HCl (Hydroxyzine Hcl 50 Mg Tablet) 50 mg PO Q6H PRN PRN Reason: Anxiety Last Admin: 08/11/24 21:22 Dose: 50 mg Ibuprofen (Ibuprofen 600 Mg Tablet) 600 mg PO Q8H PRN PRN Reason: Pain, Moderate(Pain Scale 4-6) Last Admin: 08/12/24 09:03 Dose: 600 mg Magnesium Hydroxide (Milk Of Magnesia 30 Ml Oral.Susp) 30 ml PO DAILY PRN PRN Reason: Constipation Melatonin (Melatonin 3 Mg Tablet) 3 mg PO BEDTIME [facility] Last Admin: 08/12/24 21:56 Dose: 3 mg Methadone HCl (Methadone Hcl 20 Mg/2 Ml Oral.Conc) 85 mg PO DAILY@0800 [facility] Last Admin: 08/13/24 08:39 Dose: 85 mg Nicotine Polacrilex (Nicotine Polacrilex 2 Mg Gum) 4 mg BUCCAL Q2H PRN PRN Reason: Nicotine Cravings Ondansetron HCl (Ondansetron Odt 8 Mg Tab.Rapdis) 8 mg TRANSLINGU Q12H PRN PRN Reason: Nausea and Vomiting Paroxetine HCl (Paroxetine Hcl 20 Mg Tablet) 20 mg PO DAILY [facility] Last Admin: 08/13/24 08:50 Dose: 20 mg Quetiapine Fumarate (Quetiapine Fumarate 100 Mg Tablet) 100 mg PO BEDTIME [facility] Last Admin: 08/12/24 21:55 Dose: 100 mg Quetiapine Fumarate (Quetiapine Fumarate 50 Mg Tablet) 50 mg PO BID@0900,1500 [facility] Last Admin: 08/13/24 15:45 Dose: 50 mg Quetiapine Fumarate (Quetiapine Fumarate 50 Mg Tablet) 50 mg PO BID PRN PRN Reason: severe anxiety Trazodone HCl (Trazodone Hcl 50 Mg Tablet) 50 mg PO BEDTIME MRX1 PRN PRN Reason: Insomnia Last Admin: 08/12/24 21:58 Dose: 50 mg Allergies Allergies Allergy/AdvReac Type Severity Reaction Status Date / Time amoxicillin [Amoxicillin] Allergy Mild SWELLING Verified 08/08/24 05:50 Penicillins Allergy Mild SWELLING Verified 08/08/24 05:50 penicillin V Allergy Unknown unknown Verified 08/08/24 05:50 Doxycycline Hyclate Allergy Unknown unknown Uncoded 04/21/24 06:47 Assessment & Plan Assessment & Plan (1) MDD (major depressive disorder), recurrent severe, without psychosis: Status: Acute Code(s): F33.2 - Major depressive disorder, recurrent severe without psychotic features (2) Opioid use disorder: Status: Acute Code(s): F11.90 - Opioid use, unspecified, uncomplicated (3) Cocaine use disorder: Status: Acute Code(s): F14.10 - Cocaine abuse, uncomplicated (4) Homelessness: Status: Acute Code(s): Z59.00 - Homelessness unspecified Plan Patient is a 43-year-old male with history of MDD, opiate use disorder and cocaine use disorder who self presented to [facility] ER due to suicidal ideation with no plan secondary to increased depression. Plan: CV 15 minute safety checks Reviewed prior medications/restart Encourage groups Referral to outpatient psychiatric providers Discharge planning 08/09: Keeping to self. laying in bed. pt reports he feels tired because I'm going through withdrawals . pt reports sleeping well last night. denies SI/HI/VH/AH. Pt requesting Thorazine for anxiety/agitation; start: thorazine 25mg PO Q6HR PRN 08/10: laying in bed most of the day. continue to report feeling anxious and depressed; requested to stop thorazine and switch for seroquel instead. DC thorazine. Start: seroquel 25mg PO 0900,1500. per nursing, slept 8 hours last night. encouraged to attend groups. denies SI/HI/VH/AH. 08/11: Keeping to self. laying in bed. continue to report feeling depressed; Pt reports he would like to be referred to the [facility]. dry mill worker, olvin tSrickland. Pt encouraged to shower and attend groups; which he says he will. denies SI/HI/VH/AH. Continue current tx plan. 08/12: Continue similar to yesterday. did not shower yesterday but states he will today. c/o cold symptoms; ordered covid/RSV/flu test;awaiting results. Pt reports he changed his mind about going to [facility] d/t hearing bad things about it . He perferes to go to a longterm after discharge. denies SI/HI/VH/AH. Continue current tx plan. 08/13: RSV +, now in isolation. increase seroquel from 25/25/100 to 50/50/100 and add 50 mg BID PRN seroquel for severe anxiety. otherwise continue current mgmt. Reason for continued inpatient stay Substantial Risk for: harm to self Time Spent With Patient Time: Total time managing care of this patient today __25__ minutes.
[2024-08-13 16:03] VITALS: BP 107/62
[2024-08-13] MEDS: cloNIDine HCL 0.1 MG TABLET PO (16:03)
[2024-08-13] MEDS: hydrOXYzine HCL 50 MG TABLET PO (16:03)
[2024-08-13 20:00] VITALS: BP 115/71; PULSE 58; RESP 16; TEMP 36.7; O2SAT 96
[2024-08-13] MEDS: Ibuprofen 600 MG TABLET PO (20:50)
[2024-08-13] MEDS: Melatonin 3 MG TABLET PO (20:51)
[2024-08-13] MEDS: traZODone HCL 50 MG TABLET PO (20:51)
[2024-08-13] MEDS: guaiFENesin 100 MG/5 ML 5 ML LIQUID PO (20:51)
[2024-08-13] MEDS: QUEtiapine Fumarate 100 MG TABLET PO (20:51)
[2024-08-14] MEDS: methADONE HCl 20 MG/2 ML ORAL.CONC 85 MG PO (08:11)
[2024-08-14 08:50] VITALS: BP 108/60; PULSE 58; RESP 18; TEMP 36.8; O2SAT 100
[2024-08-14] MEDS: QUEtiapine Fumarate 50 MG TABLET PO ×2 (09:00→15:46)
[2024-08-14] MEDS: Gabapentin 100 MG CAPSULE 200 MG PO ×2 (09:00→21:22)
[2024-08-14] MEDS: PARoxetine HCL 20 MG TABLET PO (09:00)
--- NOTE | 2024-08-14 09:34 | HO.PSYCHPN ---
Subjective Subjective Date of Service: 08/14/24 Reason For Visit: Crisis Subjective Notes: Conditional Voluntary Interim History: Pt reports feeling anxious about being discharged tomorrow. Plans on following up with his outpatient providers and staying at a group home in [place]. denies SI/HI/VH/AH. Per nursing, slept 6 hours last night. Continues to c/o cold symptoms. Medication Compliance: Yes Side effects from medications: No Attending Groups: No Mental Status Exam Mental Status Exam Patient Appearance: Appropriate Patient Orientation: Person, Place, Time and Situation Level of Consciousness: Awake Patient Behavior: Cooperative and Anxious Mood Description: Anxious Affect Description: Blunted Ability to Follow Directions: Good Speech Pattern: Clear Memory Description: Intact Hallucinations: None Delusions: Not Present Thought Process: Intact Thought Content: positive for Intact Judgement: Fair Diagnostics Vital Signs (24Hr): Vital Signs - 24 hr 08/13/24 16:03 08/13/24 20:00 08/14/24 08:50 Temperature 98.0 F 98.2 F Pulse Rate 58 58 Respiratory Rate 16 18 Blood Pressure 107/62 115/71 108/60 Pulse Oximetry 96 100 Oxygen Delivery Method Room Air Room Air BMI result Body Mass Index 21.5 Labs 08/08/24 06:26 08/08/24 06:26 Labs: Laboratory Results - last 48 hr 08/12/24 10:22 Influenza Type A (PCR) NEGATIVE Influenza Type B (PCR) NEGATIVE RSV RNA Qual (PCR) POSITIVE A SARS-CoV-2 RNA (RT-PCR) NEGATIVE Medications Medications Current Medications Acetaminophen (Acetaminophen 325 Mg Tablet) 650 mg PO Q6H PRN PRN Reason: Headache/Pain Mild Scale (1-3) Last Admin: 08/12/24 15:05 Dose: 650 mg Al Hydroxide/Mg Hydroxide (Magnesium Hydrox/Alum Hydrox 30 Ml Oral.Susp) 30 ml PO Q6H PRN PRN Reason: Heartburn/Nausea Albuterol Sulfate (Albuterol Sulfate 90 Mcg 8 Gm Inhaler) 1 puff INHALE RQ4H PRN PRN Reason: Shortness of Breath Benzocaine (Throat Lozenge, Medicated Lozenge) 1 lozenge MUCOUS MEM Q2H PRN PRN Reason: Sore Throat Last Admin: 08/12/24 15:06 Dose: 1 lozenge Clonidine HCl (Clonidine Hcl 0.1 Mg Tablet) 0.1 mg PO BID PRN; Protocol PRN Reason: anxiety/restlessness Last Admin: 08/13/24 16:03 Dose: 0.1 mg Gabapentin (Gabapentin 100 Mg Capsule) 200 mg PO BID [facility] Last Admin: 08/14/24 09:00 Dose: 200 mg Guaifenesin (Guaifenesin 100 Mg/5 Ml 5 Ml Liquid) 5 ml PO Q6H PRN PRN Reason: Cough Last Admin: 08/13/24 20:51 Dose: 5 ml Hydroxyzine HCl (Hydroxyzine Hcl 50 Mg Tablet) 50 mg PO Q6H PRN PRN Reason: Anxiety Last Admin: 08/13/24 16:03 Dose: 50 mg Ibuprofen (Ibuprofen 600 Mg Tablet) 600 mg PO Q8H PRN PRN Reason: Pain, Moderate(Pain Scale 4-6) Last Admin: 08/13/24 20:50 Dose: 600 mg Magnesium Hydroxide (Milk Of Magnesia 30 Ml Oral.Susp) 30 ml PO DAILY PRN PRN Reason: Constipation Melatonin (Melatonin 3 Mg Tablet) 3 mg PO BEDTIME [facility] Last Admin: 08/13/24 20:51 Dose: 3 mg Methadone HCl (Methadone Hcl 20 Mg/2 Ml Oral.Conc) 85 mg PO DAILY@0800 [facility] Last Admin: 08/14/24 08:11 Dose: 85 mg Nicotine Polacrilex (Nicotine Polacrilex 2 Mg Gum) 4 mg BUCCAL Q2H PRN PRN Reason: Nicotine Cravings Ondansetron HCl (Ondansetron Odt 8 Mg Tab.Rapdis) 8 mg TRANSLINGU Q12H PRN PRN Reason: Nausea and Vomiting Paroxetine HCl (Paroxetine Hcl 20 Mg Tablet) 20 mg PO DAILY [facility] Last Admin: 08/14/24 09:00 Dose: 20 mg Quetiapine Fumarate (Quetiapine Fumarate 100 Mg Tablet) 100 mg PO BEDTIME [facility] Last Admin: 08/13/24 20:51 Dose: 100 mg Quetiapine Fumarate (Quetiapine Fumarate 50 Mg Tablet) 50 mg PO BID@0900,1500 [facility] Last Admin: 08/14/24 09:00 Dose: 50 mg Quetiapine Fumarate (Quetiapine Fumarate 50 Mg Tablet) 50 mg PO BID PRN PRN Reason: severe anxiety Trazodone HCl (Trazodone Hcl 50 Mg Tablet) 50 mg PO BEDTIME MRX1 PRN PRN Reason: Insomnia Last Admin: 08/13/24 20:51 Dose: 50 mg Allergies Allergies Allergy/AdvReac Type Severity Reaction Status Date / Time amoxicillin [Amoxicillin] Allergy Mild SWELLING Verified 08/08/24 05:50 Penicillins Allergy Mild SWELLING Verified 08/08/24 05:50 penicillin V Allergy Unknown unknown Verified 08/08/24 05:50 Doxycycline Hyclate Allergy Unknown unknown Uncoded 04/21/24 06:47 Assessment & Plan Assessment & Plan (1) MDD (major depressive disorder), recurrent severe, without psychosis: Status: Acute Code(s): F33.2 - Major depressive disorder, recurrent severe without psychotic features (2) Opioid use disorder: Status: Acute Code(s): F11.90 - Opioid use, unspecified, uncomplicated (3) Cocaine use disorder: Status: Acute Code(s): F14.10 - Cocaine abuse, uncomplicated (4) Homelessness: Status: Acute Code(s): Z59.00 - Homelessness unspecified Plan Patient is a 43-year-old male with history of MDD, opiate use disorder and cocaine use disorder who self [place] [facility] due to suicidal ideation with no plan secondary to increased depression. Plan: CV 15 minute safety checks Reviewed prior medications/restart Encourage groups Referral to outpatient psychiatric providers Discharge planning 08/09: Keeping to self. laying in bed. pt reports he feels tired because I'm going through withdrawals . pt reports sleeping well last night. denies SI/HI/VH/AH. Pt requesting Thorazine for anxiety/agitation; start: thorazine 25mg PO Q6HR PRN 08/10: laying in bed most of the day. continue to report feeling anxious and depressed; requested to stop thorazine and switch for seroquel instead. DC thorazine. Start: seroquel 25mg PO 0900,1500. per nursing, slept 8 hours last night. encouraged to attend groups. denies SI/HI/VH/AH. 08/11: Keeping to self. laying in bed. continue to report feeling depressed; Pt reports he would like to be referred to the [facility]. rock room worker, olvin Strickland. Pt encouraged to shower and attend groups; which he says he will. denies SI/HI/VH/AH. Continue current tx plan. 08/12: Continue similar to yesterday. did not shower yesterday but states he will today. c/o cold symptoms; ordered covid/RSV/flu test;awaiting results. Pt reports he changed his mind about going to [facility] d/t hearing bad things about it . He perferes to go to a group home after discharge. denies SI/HI/VH/AH. Continue current tx plan. 08/13: RSV +, now in isolation. increase seroquel from 25/25/100 to 50/50/100 and add 50 mg BID PRN seroquel for severe anxiety. otherwise continue current mgmt. 08/14: Pt reports feeling anxious about being discharged tomorrow. Plans on following up with his outpatient providers and staying at a group home in [place]. denies SI/HI/VH/AH. Per nursing, slept 6 hours last night. Continues to c/o cold symptoms. Patient educated on: diagnosis and medication risk/benefits Reason for continued inpatient stay Substantial Risk for: med/psych decompensation Time Spent With Patient Time: Total time managing care of this patient today _20___ minutes.
[2024-08-14 19:20] VITALS: BP 89/52; PULSE 61; RESP 16; TEMP 36.4; O2SAT 98
[2024-08-14 21:20] VITALS: BP 101/56; PULSE 59; RESP 18; TEMP 36.7; O2SAT 98
[2024-08-14] MEDS: hydrOXYzine HCL 50 MG TABLET PO (21:22)
[2024-08-14] MEDS: traZODone HCL 50 MG TABLET PO (21:23)
[2024-08-14] MEDS: QUEtiapine Fumarate 100 MG TABLET PO (21:23)
[2024-08-14] MEDS: Melatonin 3 MG TABLET PO (21:23)
[2024-08-14] MEDS: guaiFENesin 100 MG/5 ML 5 ML LIQUID PO (21:23)
[2024-08-15 07:51] VITALS: BP 130/75; PULSE 67; RESP 14; TEMP 37.2; O2SAT 98
[2024-08-15] MEDS: methADONE HCl 20 MG/2 ML ORAL.CONC 85 MG PO (08:05)
[2024-08-15] MEDS: Gabapentin 100 MG CAPSULE 200 MG PO ×2 (08:51→21:10)
[2024-08-15] MEDS: PARoxetine HCL 20 MG TABLET PO (08:52)
[2024-08-15] MEDS: QUEtiapine Fumarate 50 MG TABLET PO ×3 (08:53→15:09)
[2024-08-15] MEDS: hydrOXYzine HCL 50 MG TABLET PO ×2 (13:24→21:28)
--- NOTE | 2024-08-15 14:08 | P.PNPSI_ITS ---
Subjective Subjective Date of Service: 08/15/24 Reason For Visit: Crisis Interim History: relieved not to be discharging. c/o chest discomfort, phlegm, chills, KHAN, aches, congestion. c/o anxiety. c/o insomnia, agrees to increase seroquel to 200 QHS, although states he used to take seroquel 300 QHS and doxepin. per staff, napping a lot. Mental Status Exam Mental Status Exam Narrative: Pt is alert and oriented; behavior is cooperative; dressed in casual attire; mood is not assessed; eye contact appropriate; Speech is normal rate, volume and not pressured; thought process is organized; Thought content is on tx; no SI/HI/AH/VH expressed. Diagnostics Vital Signs (24Hr): Vital Signs - 24 hr 08/14/24 19:20 08/14/24 21:20 08/15/24 07:51 Temperature 97.6 F 98.0 F 99.0 F Pulse Rate 61 59 67 Respiratory Rate 16 18 14 Blood Pressure 89/52 L 101/56 L 130/75 Pulse Oximetry 98 98 98 Oxygen Delivery Method Room Air Room Air Room Air BMI result Body Mass Index 21.5 Labs 08/08/24 06:26 08/08/24 06:26 Medications Medications Current Medications Acetaminophen (Acetaminophen 325 Mg Tablet) 975 mg PO Q6H PRN PRN Reason: Headache/Pain Mild Scale (1-3) Al Hydroxide/Mg Hydroxide (Magnesium Hydrox/Alum Hydrox 30 Ml Oral.Susp) 30 ml PO Q6H PRN PRN Reason: Heartburn/Nausea Albuterol Sulfate (Albuterol Sulfate 90 Mcg 8 Gm Inhaler) 1 puff INHALE RQ4H PRN PRN Reason: Shortness of Breath Benzocaine (Throat Lozenge, Medicated Lozenge) 1 lozenge MUCOUS MEM Q2H PRN PRN Reason: Sore Throat Last Admin: 08/12/24 15:06 Dose: 1 lozenge Clonidine HCl (Clonidine Hcl 0.1 Mg Tablet) 0.1 mg PO BID PRN; Protocol PRN Reason: anxiety/restlessness Last Admin: 08/13/24 16:03 Dose: 0.1 mg Gabapentin (Gabapentin 100 Mg Capsule) 200 mg PO BID [facility] Last Admin: 08/15/24 08:51 Dose: 200 mg Guaifenesin (Guaifenesin 100 Mg/5 Ml 5 Ml Liquid) 5 ml PO Q6H PRN PRN Reason: Cough Last Admin: 08/14/24 21:23 Dose: 5 ml Hydroxyzine HCl (Hydroxyzine Hcl 50 Mg Tablet) 50 mg PO Q6H PRN PRN Reason: Anxiety Last Admin: 08/15/24 13:24 Dose: 50 mg Ibuprofen (Ibuprofen 800 Mg Tablet) 800 mg PO Q6H PRN PRN Reason: Pain, Moderate(Pain Scale 4-6) Magnesium Hydroxide (Milk Of Magnesia 30 Ml Oral.Susp) 30 ml PO DAILY PRN PRN Reason: Constipation Melatonin (Melatonin 3 Mg Tablet) 3 mg PO BEDTIME [facility] Last Admin: 08/14/24 21:23 Dose: 3 mg Methadone HCl (Methadone Hcl 20 Mg/2 Ml Oral.Conc) 85 mg PO DAILY@0800 [facility] Last Admin: 08/15/24 08:05 Dose: 85 mg Nicotine Polacrilex (Nicotine Polacrilex 2 Mg Gum) 4 mg BUCCAL Q2H PRN PRN Reason: Nicotine Cravings Ondansetron HCl (Ondansetron Odt 8 Mg Tab.Rapdis) 8 mg TRANSLINGU Q12H PRN PRN Reason: Nausea and Vomiting Paroxetine HCl (Paroxetine Hcl 20 Mg Tablet) 20 mg PO DAILY [facility] Last Admin: 08/15/24 08:52 Dose: 20 mg Quetiapine Fumarate (Quetiapine Fumarate 50 Mg Tablet) 50 mg PO BID@0900,1500 [facility] Last Admin: 08/15/24 08:53 Dose: 50 mg Quetiapine Fumarate (Quetiapine Fumarate 50 Mg Tablet) 50 mg PO BID PRN PRN Reason: severe anxiety Last Admin: 08/15/24 13:24 Dose: 50 mg Quetiapine Fumarate (Quetiapine Fumarate 200 Mg Tablet) 200 mg PO BEDTIME [facility] Trazodone HCl (Trazodone Hcl 50 Mg Tablet) 50 mg PO BEDTIME MRX1 PRN PRN Reason: Insomnia Last Admin: 08/14/24 21:23 Dose: 50 mg Allergies Allergies Allergy/AdvReac Type Severity Reaction Status Date / Time amoxicillin [Amoxicillin] Allergy Mild SWELLING Verified 08/08/24 05:50 Penicillins Allergy Mild SWELLING Verified 08/08/24 05:50 penicillin V Allergy Unknown unknown Verified 08/08/24 05:50 Doxycycline Hyclate Allergy Unknown unknown Uncoded 04/21/24 06:47 Assessment & Plan Assessment & Plan (1) MDD (major depressive disorder), recurrent severe, without psychosis: Status: Acute Code(s): F33.2 - Major depressive disorder, recurrent severe without psychotic features (2) Opioid use disorder: Status: Acute Code(s): F11.90 - Opioid use, unspecified, uncomplicated (3) Cocaine use disorder: Status: Acute Code(s): F14.10 - Cocaine abuse, uncomplicated (4) Homelessness: Status: Acute Code(s): Z59.00 - Homelessness unspecified Plan Patient is a 43-year-old male with history of MDD, opiate use disorder and cocaine use disorder who self [place] [facility] [place] to suicidal ideation with no plan secondary to increased depression. Plan: CV 15 minute safety checks Reviewed prior medications/restart Encourage groups Referral to outpatient psychiatric providers Discharge planning 08/09: Keeping to self. laying in bed. pt reports he feels tired because I'm going through withdrawals . pt reports sleeping well last night. denies SI/HI/VH/AH. Pt requesting Thorazine for anxiety/agitation; start: thorazine 25mg PO Q6HR PRN 08/10: laying in bed most of the day. continue to report feeling anxious and depressed; requested to stop thorazine and switch for seroquel instead. DC thorazine. Start: seroquel 25mg PO 0900,1500. per nursing, slept 8 hours last night. encouraged to attend groups. denies SI/HI/VH/AH. 08/11: Keeping to self. laying in bed. continue to report feeling depressed; Pt reports he would like to be referred to the [facility]. transportation worker, olvin Strickland. Pt encouraged to shower and attend groups; which he says he will. denies SI/HI/VH/AH. Continue current tx plan. 08/12: Continue similar to yesterday. did not shower yesterday but states he will today. c/o cold symptoms; ordered covid/RSV/flu test;awaiting results. Pt reports he changed his mind about going to [facility] d/t hearing bad things about it . He perferes to go to a long-term after discharge. denies SI/HI/VH/AH. Continue current tx plan. 08/13: RSV +, now in isolation. increase seroquel from 25/25/100 to 50/50/100 and add 50 mg BID PRN seroquel for severe anxiety. otherwise continue current mgmt. 08/14: Pt reports feeling anxious about being discharged tomorrow. Plans on following up with his outpatient providers and staying at a long-term in [place]. denies SI/HI/VH/AH. Per nursing, slept 6 hours last night. Continues to c/o cold symptoms. 08/15: c/o flu Sx. c/o insomnia, increase seroquel to 200 QHS. states he used to be on seroquel 300 QHS and doxepin for sleep. titrate over w/e as indicated. discharge deferred to early next week. Reason for continued inpatient stay Substantial Risk for: inability to function Time Spent With Patient Time: Total time managing care of this patient today __25__ minutes.
[2024-08-15 20:00] VITALS: BP 121/66; PULSE 72; RESP 16; TEMP 36.8; O2SAT 97
[2024-08-15] MEDS: Acetaminophen 325 MG TABLET 975 MG PO (21:09)
[2024-08-15] MEDS: guaiFENesin 100 MG/5 ML 5 ML LIQUID PO (21:09)
[2024-08-15] MEDS: Throat Lozenge, Medicated LOZENGE 1 LOZENGE MUCOUS MEM (21:10)
[2024-08-15] MEDS: Melatonin 3 MG TABLET PO (21:10)
[2024-08-15] MEDS: traZODone HCL 50 MG TABLET PO (21:10)
[2024-08-15] MEDS: QUEtiapine Fumarate 200 MG TABLET PO (21:11)
--- NOTE | 2024-08-16 | ECG_ITS ---
Test Reason : check qtc before inc bed time seroquel Blood Pressure : */* mmHG Vent. Rate : 64 BPM Atrial Rate : 64 BPM P-R Int : 148 ms QRS Dur : 86 ms QT Int : 442 ms P-R-T Axes : 57 71 55 degrees QTcB Int : 455 ms Normal sinus rhythm Normal ECG When compared with ECG of 08-Aug-2024 13:33, No significant change was found Referred By: Andreia Lopez Electronically Signed By: Des Marino
[2024-08-16] MEDS: traZODone HCL 50 MG TABLET PO (02:58)
[2024-08-16 08:10] VITALS: BP 109/59; PULSE 68; RESP 16; TEMP 36.6; O2SAT 100
--- NOTE | 2024-08-16 08:36 | HO.PSYCHPN ---
Subjective Subjective Date of Service: 08/16/24 Reason For Visit: Crisis Subjective Notes: Conditional Voluntary Healthcare Proxy: No Guardianship: No Medical Problems Affecting Mental Status: No (but recent rsv+ so affecting treatment as can't be in [facility] much) Interim History: 43 yo reports congestion, reports ongoing difficulty sleeping and would like increase dose of seroquel at bed time- reviewed and repeated ekg which has borderline qtc- not changed much-from a week ago - Medication Compliance: Yes Side effects from medications: No Attending Groups: No Review of Systems Acute medical concerns: Yes RSV Medical Review of Systems: changed (congestion) Mental Status Exam Mental Status Exam Patient Appearance: Well Grooomed and Appropriate Patient Orientation: Person, Place, Time and Situation Level of Consciousness: Awake Patient Behavior: Appropriate and Good Eye Contact Mood Description: Sad Affect Description: Blunted Patient Cognition Impaired: No Ability to Follow Directions: Good Speech Pattern: Clear Hallucinations: None Delusions: Not Present Thought Process: Intact and Goal Oriented Thought Content: positive for Intact Depressive Symptoms: Difficulty Sleeping Judgement: Fair Diagnostics Vital Signs (24Hr): Vital Signs - 24 hr 08/15/24 20:00 Temperature 98.2 F Pulse Rate 72 Respiratory Rate 16 Blood Pressure 121/66 Pulse Oximetry 97 Oxygen Delivery Method Room Air BMI result Body Mass Index 21.5 Labs 08/08/24 06:26 08/08/24 06:26 Medications Medications Current Medications Acetaminophen (Acetaminophen 325 Mg Tablet) 975 mg PO Q6H PRN PRN Reason: Headache/Pain Mild Scale (1-3) Last Admin: 08/15/24 21:09 Dose: 975 mg Al Hydroxide/Mg Hydroxide (Magnesium Hydrox/Alum Hydrox 30 Ml Oral.Susp) 30 ml PO Q6H PRN PRN Reason: Heartburn/Nausea Albuterol Sulfate (Albuterol Sulfate 90 Mcg 8 Gm Inhaler) 1 puff INHALE RQ4H PRN PRN Reason: Shortness of Breath Benzocaine (Throat Lozenge, Medicated Lozenge) 1 lozenge MUCOUS MEM Q2H PRN PRN Reason: Sore Throat Last Admin: 08/15/24 21:10 Dose: 1 lozenge Clonidine HCl (Clonidine Hcl 0.1 Mg Tablet) 0.1 mg PO BID PRN; Protocol PRN Reason: anxiety/restlessness Last Admin: 08/13/24 16:03 Dose: 0.1 mg Gabapentin (Gabapentin 100 Mg Capsule) 200 mg PO BID [facility] Last Admin: 08/15/24 21:10 Dose: 200 mg Guaifenesin (Guaifenesin 100 Mg/5 Ml 5 Ml Liquid) 5 ml PO Q6H PRN PRN Reason: Cough Last Admin: 08/15/24 21:09 Dose: 5 ml Hydroxyzine HCl (Hydroxyzine Hcl 50 Mg Tablet) 50 mg PO Q6H PRN PRN Reason: Anxiety Last Admin: 08/15/24 21:28 Dose: 50 mg Ibuprofen (Ibuprofen 800 Mg Tablet) 800 mg PO Q6H PRN PRN Reason: Pain, Moderate(Pain Scale 4-6) Magnesium Hydroxide (Milk Of Magnesia 30 Ml Oral.Susp) 30 ml PO DAILY PRN PRN Reason: Constipation Melatonin (Melatonin 3 Mg Tablet) 3 mg PO BEDTIME [facility] Last Admin: 08/15/24 21:10 Dose: 3 mg Methadone HCl (Methadone Hcl 20 Mg/2 Ml Oral.Conc) 85 mg PO DAILY@0800 [facility] Last Admin: 08/15/24 08:05 Dose: 85 mg Nicotine Polacrilex (Nicotine Polacrilex 2 Mg Gum) 4 mg BUCCAL Q2H PRN PRN Reason: Nicotine Cravings Ondansetron HCl (Ondansetron Odt 8 Mg Tab.Rapdis) 8 mg TRANSLINGU Q12H PRN PRN Reason: Nausea and Vomiting Paroxetine HCl (Paroxetine Hcl 20 Mg Tablet) 20 mg PO DAILY [facility] Last Admin: 08/15/24 08:52 Dose: 20 mg Quetiapine Fumarate (Quetiapine Fumarate 50 Mg Tablet) 50 mg PO BID@0900,1500 [facility] Last Admin: 08/15/24 15:09 Dose: 50 mg Quetiapine Fumarate (Quetiapine Fumarate 50 Mg Tablet) 50 mg PO BID PRN PRN Reason: severe anxiety Last Admin: 08/15/24 13:24 Dose: 50 mg Quetiapine Fumarate (Quetiapine Fumarate 200 Mg Tablet) 200 mg PO BEDTIME [facility] Last Admin: 08/15/24 21:11 Dose: 200 mg Trazodone HCl (Trazodone Hcl 50 Mg Tablet) 50 mg PO BEDTIME MRX1 PRN PRN Reason: Insomnia Last Admin: 08/16/24 02:58 Dose: 50 mg Allergies Allergies Allergy/AdvReac Type Severity Reaction Status Date / Time amoxicillin [Amoxicillin] Allergy Mild SWELLING Verified 08/08/24 05:50 Penicillins Allergy Mild SWELLING Verified 08/08/24 05:50 penicillin V Allergy Unknown unknown Verified 08/08/24 05:50 Doxycycline Hyclate Allergy Unknown unknown Uncoded 04/21/24 06:47 Assessment & Plan Assessment & Plan (1) MDD (major depressive disorder), recurrent severe, without psychosis: Status: Acute Code(s): F33.2 - Major depressive disorder, recurrent severe without psychotic features (2) Opioid use disorder: Status: Acute Code(s): F11.90 - Opioid use, unspecified, uncomplicated (3) Cocaine use disorder: Status: Acute Code(s): F14.10 - Cocaine abuse, uncomplicated (4) Homelessness: Status: Acute Code(s): Z59.00 - Homelessness unspecified Plan Patient is a 43-year-old male with history of MDD, opiate use disorder and cocaine use disorder who self presented to [facility] [facility] due to suicidal ideation with no plan secondary to increased depression. Plan: CV 15 minute safety checks Reviewed prior medications/restart Encourage groups Referral to outpatient psychiatric providers Discharge planning 08/09: Keeping to self. laying in bed. pt reports he feels tired because I'm going through withdrawals . pt reports sleeping well last night. denies SI/HI/VH/AH. Pt requesting Thorazine for anxiety/agitation; start: thorazine 25mg PO Q6HR PRN 08/10: laying in bed most of the day. continue to report feeling anxious and depressed; requested to stop thorazine and switch for seroquel instead. DC thorazine. Start: seroquel 25mg PO 0900,1500. per nursing, slept 8 hours last night. encouraged to attend groups. denies SI/HI/VH/AH. 08/11: Keeping to self. laying in bed. continue to report feeling depressed; Pt reports he would like to be referred to the [facility]. binding bench worker, olvin Strickland. Pt encouraged to shower and attend groups; which he says he will. denies SI/HI/VH/AH. Continue current tx plan. 08/12: Continue similar to yesterday. did not shower yesterday but states he will today. c/o cold symptoms; ordered covid/RSV/flu test;awaiting results. Pt reports he changed his mind about going to [facility] d/t hearing bad things about it . He perferes to go to a fci after discharge. denies SI/HI/VH/AH. Continue current tx plan. 08/13: RSV +, now in isolation. increase seroquel from 25/25/100 to 50/50/100 and add 50 mg BID PRN seroquel for severe anxiety. otherwise continue current mgmt. 08/14: Pt reports feeling anxious about being discharged tomorrow. Plans on following up with his outpatient providers and staying at a [facility]ci in [place]. denies SI/HI/VH/AH. Per nursing, slept 6 hours last night. Continues to c/o cold symptoms. 08/15: c/o flu Sx. c/o insomnia, increase seroquel to 200 QHS. states he used to be on seroquel 300 QHS and doxepin for sleep. titrate over w/e as indicated. discharge deferred to early next week. 08/16 inc seroquel to 300mg , rechecked ekg- Patient educated on: medication risk/benefits Informed Consent: understands Reason for continued inpatient stay Substantial Risk for: rapid decompensation Time Spent With Patient Time: Total time managing care of this patient today ____ minutes.
[2024-08-16] MEDS: methADONE HCl 20 MG/2 ML ORAL.CONC 85 MG PO (08:48)
[2024-08-16] MEDS: Acetaminophen 325 MG TABLET 975 MG PO (08:50)
[2024-08-16] MEDS: hydrOXYzine HCL 50 MG TABLET PO ×3 (08:51→21:47)
[2024-08-16] MEDS: Gabapentin 100 MG CAPSULE 200 MG PO ×2 (08:51→21:46)
[2024-08-16] MEDS: PARoxetine HCL 20 MG TABLET PO (08:52)
[2024-08-16] MEDS: QUEtiapine Fumarate 50 MG TABLET PO ×2 (08:52→14:36)
[2024-08-16] MEDS: guaiFENesin 100 MG/5 ML 5 ML LIQUID PO ×2 (08:52→21:46)
[2024-08-16] MEDS: Ibuprofen 800 MG TABLET PO ×2 (14:36→21:47)
[2024-08-16 20:00] VITALS: BP 107/62; PULSE 57; RESP 16; TEMP 36.9; O2SAT 99
[2024-08-16] MEDS: QUEtiapine Fumarate 300 MG TABLET PO (21:46)
[2024-08-16] MEDS: Melatonin 3 MG TABLET PO (21:48)
[2024-08-17 08:55] VITALS: BP 105/58; PULSE 69; RESP 14; TEMP 37.2; O2SAT 99
[2024-08-17] MEDS: methADONE HCl 20 MG/2 ML ORAL.CONC 85 MG PO (09:07)
[2024-08-17] MEDS: PARoxetine HCL 20 MG TABLET PO (09:09)
[2024-08-17] MEDS: guaiFENesin LA 600 MG TAB.ER.12H PO (09:09)
[2024-08-17] MEDS: QUEtiapine Fumarate 50 MG TABLET PO ×2 (09:10→15:21)
[2024-08-17] MEDS: Acetaminophen 325 MG TABLET 975 MG PO (09:10)
[2024-08-17] MEDS: Gabapentin 100 MG CAPSULE 200 MG PO ×2 (09:10→22:56)
--- NOTE | 2024-08-17 09:30 | HO.PSYCHPN ---
Subjective Subjective Date of Service: 08/17/24 Reason For Visit: Crisis Subjective Notes: Conditional Voluntary Healthcare Proxy: No Guardianship: No Medical Problems Affecting Mental Status: No Interim History: 43 yo sick in bed with RSV wondering how long this virus lasts- Slept better with seroquel 300mg last pm- Medication Compliance: Yes Side effects from medications: No Attending Groups: No Review of Systems Acute medical concerns: Yes RSV Medical Review of Systems: changed (worsened rsv feeling ill today lying in bed and fatigued) Mental Status Exam Mental Status Exam Patient Appearance: Fatigued Patient Orientation: Person, Place, Time and Situation Level of Consciousness: Awake Patient Behavior: Appropriate Mood Description: Anxious Affect Description: Constricted Patient Cognition Impaired: No Ability to Follow Directions: Fair Speech Pattern: Clear Thought Process: Intact and Goal Oriented Thought Content: positive for Intact Judgement: Fair Diagnostics Vital Signs (24Hr): Vital Signs - 24 hr 08/16/24 20:00 08/17/24 08:55 Temperature 98.4 F 98.9 F Pulse Rate 57 69 Respiratory Rate 16 14 Blood Pressure 107/62 105/58 L Pulse Oximetry 99 99 Oxygen Delivery Method Room Air Room Air BMI result Body Mass Index 21.5 Labs 08/08/24 06:26 08/08/24 06:26 EKG EKG: reviewed Medications Medications Current Medications Acetaminophen (Acetaminophen 325 Mg Tablet) 975 mg PO Q6H PRN PRN Reason: Headache/Pain Mild Scale (1-3) Last Admin: 08/17/24 09:10 Dose: 975 mg Al Hydroxide/Mg Hydroxide (Magnesium Hydrox/Alum Hydrox 30 Ml Oral.Susp) 30 ml PO Q6H PRN PRN Reason: Heartburn/Nausea Albuterol Sulfate (Albuterol Sulfate 90 Mcg 8 Gm Inhaler) 1 puff INHALE RQ4H PRN PRN Reason: Shortness of Breath Benzocaine (Throat Lozenge, Medicated Lozenge) 1 lozenge MUCOUS MEM Q2H PRN PRN Reason: Sore Throat Last Admin: 08/15/24 21:10 Dose: 1 lozenge Clonidine HCl (Clonidine Hcl 0.1 Mg Tablet) 0.1 mg PO BID PRN; Protocol PRN Reason: anxiety/restlessness Last Admin: 08/13/24 16:03 Dose: 0.1 mg Gabapentin (Gabapentin 100 Mg Capsule) 200 mg PO BID STEPH Last Admin: 08/17/24 09:10 Dose: 200 mg Guaifenesin (Guaifenesin 100 Mg/5 Ml 5 Ml Liquid) 5 ml PO Q6H PRN PRN Reason: Cough Last Admin: 08/16/24 21:46 Dose: 5 ml Guaifenesin (Guaifenesin La 600 Mg Tab.Er.12h) 600 mg PO BID PRN PRN Reason: Cough Last Admin: 08/17/24 09:09 Dose: 600 mg Hydroxyzine HCl (Hydroxyzine Hcl 50 Mg Tablet) 50 mg PO Q6H PRN PRN Reason: Anxiety Last Admin: 08/16/24 21:47 Dose: 50 mg Ibuprofen (Ibuprofen 800 Mg Tablet) 800 mg PO Q6H PRN PRN Reason: Pain, Moderate(Pain Scale 4-6) Last Admin: 08/16/24 21:47 Dose: 800 mg Magnesium Hydroxide (Milk Of Magnesia 30 Ml Oral.Susp) 30 ml PO DAILY PRN PRN Reason: Constipation Melatonin (Melatonin 3 Mg Tablet) 3 mg PO BEDTIME [facility] Last Admin: 08/16/24 21:48 Dose: 3 mg Methadone HCl (Methadone Hcl 20 Mg/2 Ml Oral.Conc) 85 mg PO DAILY@0800 [facility] Last Admin: 08/17/24 09:07 Dose: 85 mg Nicotine Polacrilex (Nicotine Polacrilex 2 Mg Gum) 4 mg BUCCAL Q2H PRN PRN Reason: Nicotine Cravings Ondansetron HCl (Ondansetron Odt 8 Mg Tab.Rapdis) 8 mg TRANSLINGU Q12H PRN PRN Reason: Nausea and Vomiting Paroxetine HCl (Paroxetine Hcl 20 Mg Tablet) 20 mg PO DAILY [facility] Last Admin: 08/17/24 09:09 Dose: 20 mg Quetiapine Fumarate (Quetiapine Fumarate 50 Mg Tablet) 50 mg PO BID@0900,1500 [facility] Last Admin: 08/17/24 09:10 Dose: 50 mg Quetiapine Fumarate (Quetiapine Fumarate 50 Mg Tablet) 50 mg PO BID PRN PRN Reason: severe anxiety Last Admin: 08/15/24 13:24 Dose: 50 mg Quetiapine Fumarate (Quetiapine Fumarate 300 Mg Tablet) 300 mg PO BEDTIME [facility] Last Admin: 08/16/24 21:46 Dose: 300 mg Trazodone HCl (Trazodone Hcl 50 Mg Tablet) 50 mg PO BEDTIME MRX1 PRN PRN Reason: Insomnia Last Admin: 08/16/24 02:58 Dose: 50 mg Allergies Allergies Allergy/AdvReac Type Severity Reaction Status Date / Time amoxicillin [Amoxicillin] Allergy Mild SWELLING Verified 08/08/24 05:50 Penicillins Allergy Mild SWELLING Verified 08/08/24 05:50 penicillin V Allergy Unknown unknown Verified 08/08/24 05:50 Doxycycline Hyclate Allergy Unknown unknown Uncoded 04/21/24 06:47 Assessment & Plan Assessment & Plan (1) MDD (major depressive disorder), recurrent severe, without psychosis: Status: Acute Code(s): F33.2 - Major depressive disorder, recurrent severe without psychotic features (2) Opioid use disorder: Status: Acute Code(s): F11.90 - Opioid use, unspecified, uncomplicated (3) Cocaine use disorder: Status: Acute Code(s): F14.10 - Cocaine abuse, uncomplicated (4) Homelessness: Status: Acute Code(s): Z59.00 - Homelessness unspecified Plan Patient is a 43-year-old male with history of MDD, opiate use disorder and cocaine use disorder who self presented to [facility] ER due to suicidal ideation with no plan secondary to increased depression. Plan: CV 15 minute safety checks Reviewed prior medications/restart Encourage groups Referral to outpatient psychiatric providers Discharge planning 08/09: Keeping to self. laying in bed. pt reports he feels tired because I'm going through withdrawals . pt reports sleeping well last night. denies SI/HI/VH/AH. Pt requesting Thorazine for anxiety/agitation; start: thorazine 25mg PO Q6HR PRN 08/10: laying in bed most of the day. continue to report feeling anxious and depressed; requested to stop thorazine and switch for seroquel instead. DC thorazine. Start: seroquel 25mg PO 0900,1500. per nursing, slept 8 hours last night. encouraged to attend groups. denies SI/HI/VH/AH. 08/11: Keeping to self. laying in bed. continue to report feeling depressed; Pt reports he would like to be referred to the [facility]. 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 Pt encouraged to shower and attend groups; which he says he will. denies SI/HI/VH/AH. Continue current tx plan. 08/12: Continue similar to yesterday. did not shower yesterday but states he will today. c/o cold symptoms; ordered covid/RSV/flu test;awaiting results. Pt reports he changed his mind about going to [facility] d/t hearing bad things about it . He perferes to go to a fpc after discharge. denies SI/HI/VH/AH. Continue current tx plan. 08/13: RSV +, now in isolation. increase seroquel from 25/25/100 to 50/50/100 and add 50 mg BID PRN seroquel for severe anxiety. otherwise continue current mgmt. 08/14: Pt reports feeling anxious about being discharged tomorrow. Plans on following up with his outpatient providers and staying at a fpc in [place]. denies SI/HI/VH/AH. Per nursing, slept 6 hours last night. Continues to c/o cold symptoms. 08/15: c/o flu Sx. c/o insomnia, increase seroquel to 200 QHS. states he used to be on seroquel 300 QHS and doxepin for sleep. titrate over w/e as indicated. discharge deferred to early next week. 08/16 inc seroquel to 300mg , rechecked ekg- 08/17 more ill with RSV today- CTP otherwise Patient educated on: medical condition Informed Consent: understands Reason for continued inpatient stay Substantial Risk for: rapid decompensation Time Spent With Patient Time: Total time managing care of this patient today ____ minutes.
[2024-08-17] MEDS: hydrOXYzine HCL 50 MG TABLET PO ×2 (15:20→22:56)
[2024-08-17] MEDS: guaiFENesin 100 MG/5 ML 5 ML LIQUID PO ×2 (15:21→22:59)
[2024-08-17 22:40] VITALS: BP 114/70; PULSE 58; TEMP 36.8; O2SAT 98
[2024-08-17] MEDS: traZODone HCL 50 MG TABLET PO (22:56)
[2024-08-17] MEDS: Melatonin 3 MG TABLET PO (22:56)
[2024-08-17] MEDS: QUEtiapine Fumarate 300 MG TABLET PO (22:56)
[2024-08-18 07:45] VITALS: BP 128/67; PULSE 65; RESP 16; TEMP 36.9; O2SAT 99
[2024-08-18] MEDS: methADONE HCl 20 MG/2 ML ORAL.CONC 85 MG PO (08:09)
[2024-08-18] MEDS: PARoxetine HCL 20 MG TABLET PO (08:39)
[2024-08-18] MEDS: QUEtiapine Fumarate 50 MG TABLET PO (08:39)
[2024-08-18] MEDS: Ibuprofen 800 MG TABLET PO (08:39)
[2024-08-18] MEDS: Gabapentin 100 MG CAPSULE 200 MG PO (08:39)
[2024-08-18] MEDS: guaiFENesin LA 600 MG TAB.ER.12H PO (08:40)
--- NOTE | 2024-08-18 10:59 | P.DS_ITS ---
DS: Providers Provider Date of Service: 08/18/24 Date of admission: 08/08/24 13:14 Date of discharge: 08/18/24 Primary care physician: Yuliet Physician Admitting clinician: Rose Marie Kiser Attending physician on admission: Jayden Jauregui Attending physician on discharge: Jayden Jauregui Discharging clinician: Rose Marie Kiser DS: Diagnosis Discharge Diagnosis (1) MDD (major depressive disorder), recurrent severe, without psychosis: Status: Acute (2) Opioid use disorder: Status: Acute (3) Cocaine use disorder: Status: Acute (4) Homelessness: Status: Acute DS: Medications Discharge Medications Home Medications: Home Medications ?Medication ?Instructions ?Recorded ?Confirmed methadone 10 mg/mL oral 85 mg PO DAILY 03/20/24 08/08/24 concentrate (Methadose) Mental Status Exam Mental Status Exam Narrative: Pt is alert and oriented; behavior is cooperative, calm; dressed in casual attire; mood is described as okay ; eye contact appropriate; Speech is normal rate, volume and not pressured; thought process is organized; Thought content is on discharge; denies SI/HI/VH/AH. Data Data Completed and Pending Completed studies during hospitalization [Text1]: 08/12/24 08/12/24 07:22 10:22 Triglycerides 148 Cholesterol 122 LDL Cholesterol, Calc 63 HDL Cholesterol 30 L Influenza Type A (PCR) NEGATIVE Influenza Type B (PCR) NEGATIVE RSV RNA Qual (PCR) POSITIVE A SARS-CoV-2 RNA (RT-PCR) NEGATIVE DS: Summary Hospital Course Hospital Course: Patient is a 43-year-old male with history of MDD, opiate use disorder and cocaine use disorder who self presented to [facility] ER due to suicidal ideation with no plan secondary to increased depression. Per crisis report, patient reported suicidal ideation and advocating for dual diagnosis unit. Patient reports poor sleep and appetite. He reports not being on any psychiatric medications at this time. Denies HI/VH/AH. Patient reports 2 prior inpatient psychiatric hospitalizations but does not have outpatient psychiatric providers. Utox positive for opiates, methadone, fentanyl, cocaine and marijuana. Patient reports feeling depressed and hopeless. During admission assessment, patient presents alert and oriented x3. Calm and cooperative. Patient reports feeling anxious and depressed ; patient stated, life is making me depressed and suicidal. I have no family, I'm homeless . Patient reports suicidal ideation with no plan. Denies HI/VH/AH. Patient reports he would like help restarting on his psychiatric medications, referral to outpatient psychiatric providers and would like to think about going to either a substance abuse program or respite after discharge. Plan: CV 15 minute safety checks Reviewed prior medications/restart Encourage groups Referral to outpatient psychiatric providers Discharge planning Keeping to self. laying in bed. pt reports he feels tired because I'm going through withdrawals . pt reports sleeping well last night. denies SI/HI/VH/AH. Pt requesting Thorazine for anxiety/agitation; start: thorazine 25mg PO Q6HR PRN laying in bed most of the day. continue to report feeling anxious and depressed; requested to stop thorazine and switch for seroquel instead. DC thorazine. Start: seroquel 25mg PO 0900,1500. per nursing, slept 8 hours last night. encouraged to attend groups. denies SI/HI/VH/AH. Keeping to self. laying in bed. continue to report feeling depressed; Pt reports he would like to be referred to the [facility]. 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 Pt encouraged to shower and attend groups; which he says he will. denies SI/HI/VH/AH. Continue current tx plan. Continue similar to yesterday. did not shower yesterday but states he will to day. c/o cold symptoms; ordered covid/RSV/flu test;awaiting results. Pt reports he changed his mind about going to [facility] d/t hearing bad things about it . He perferes to go to a assisted after discharge. denies SI/HI/VH/AH. Continue current tx plan RSV +, now in isolation. increase seroquel from 25/25/100 to 50/50/100 and add 50 mg BID PRN seroquel for severe anxiety. otherwise continue current mgmt. Pt reports feeling anxious about being discharged tomorrow. Plans on following up with his outpatient providers and staying at a assisted in [place]. denies SI/HI/VH/AH. Per nursing, slept 6 hours last night. Continues to c/o cold symptoms. c/o flu Sx. c/o insomnia, increase seroquel to 200 QHS. states he used to be on seroquel 300 QHS and doxepin for sleep. titrate over w/e as indicated. discharge deferred to early next week. inc seroquel to 300mg , rechecked ekg- Patient reports feeling okay today; plans on following up with outpatient providers. denies SI/HI/VH/AH. Pt plans on going to assisted in [place], [place]; he did not want to go to [facility]. Status at Discharge Cognitive/behavioral status at discharge: Patient has insight and demonstrates good judgment in terms of wanting to pursue treatment. Patient has a safety plan that includes presenting to the closest ER or calling 911 if feeling unsafe. Functional status at discharge: independent ambulation Overall status at discharge: patient is back to baseline Time Spent with Patient Time attestation: Total time managing care of this patient today _20___ minutes. Time spent: Less than 30 minutes Discharge Plan Discharge Anticipated Discharge Date/Time: 08/18/24 12:30 Patient Disposition: Correction Discharge Diagnosis: MDD, opioid use d/o, cocaine use d/o Referrals: [facility] in [place] [Other] - 1 Week Shelbie Bradford [Other] - 09/15/24 9:00 am (this appointment is telehealth) Bernarda Christine [Other] - 1 Week (In person appointment) Kd Delaney FNP-BC [Nurse Practitioner] - 1 Week Discharge Medications: New melatonin 3 mg Tablet 3 mg PO BEDTIME 30 Days Qty: 30 0RF quetiapine 50 mg Tablet 50 mg PO BID@0900,1500 30 Days Qty: 60 0RF quetiapine 300 mg Tablet 300 mg PO BEDTIME 30 Days Qty: 30 0RF paroxetine HCl 20 mg Tablet 20 mg PO DAILY 30 Days Qty: 30 0RF gabapentin 100 mg Capsule 200 mg PO BID 14 Days Qty: 56 1RF Continued methadone [Methadose] 10 mg/mL concentrate 85 mg PO DAILY Rx Instructions: Partial Fill upon patient request. Discharge Orders: Discharge Order (Routine); Ordered 08/18/24 Ordered By: Rose Marie Kiser Diet: Regular diet Activity on Discharge: As tolerated Stand Alone Forms: Patient Portal Discharge page, Community Support Print Language: Kinyarwanda Care Plan Goals: Maintain mood and safe behaviors Take medications as prescribed Continue to pursue sobriety Practice coping skills Continue with outpatient providers and reach out to them as needed Health Concerns: Mood stability and behaviors Sobriety Plan of Treatment: Follow up with your PCP, psychiatric provider and other outpatient providers regarding above concerns Take medications as prescribed Assessment: Patient has insight and demonstrates good judgment in terms of wanting to pursue treatment. Patient has a safety plan that includes presenting to the closest ER or calling 911 if feeling unsafe.
[2024-08-18] MEDS: Naloxone HCl Nasal TAKE HOME 4 MG SPRAY 8 MG NOSTRILALT (11:17)
== END 2024-08-18 12:50 | disposition home or self-care (01) | DRG 751 ==
LOC: HO.ED 06:46 → HO.PADLT16 13:15
PROVIDERS: Admitting Provider Registered Nurse; Emergency Provider Emergency Medicine; Responsible Provider Registered Nurse; Visit Provider Psychiatry & Neurology Psychiatry
DX: F33.2 Major depressive disorder, recurrent severe without psychotic features (principal); R45.851 Suicidal ideations; B97.4 Respiratory syncytial virus as the cause of diseases classified elsewhere; J22 Unspecified acute lower respiratory infection; F11.20 Opioid dependence, uncomplicated; F41.9 Anxiety disorder, unspecified; F14.10 Cocaine abuse, uncomplicated; Z59.00 Homelessness unspecified
CPT/HCPCS: 0241U; 36415; 80053; 80061; 80307; 81003; 85025; 93005; 99285; S9485

== ENCOUNTER 2024-08-08 13:14 | Outpatient (BNV) | payer OTHER, SELFPAY | END 2024-08-16 18:36 | PROVIDERS: Admitting Provider Registered Nurse; Emergency Provider Emergency Medicine; Responsible Provider Registered Nurse; Visit Provider Internal Medicine Cardiovascular Disease | DX: Z13.6 Encounter for screening for cardiovascular disorders (principal) | CPT/HCPCS: 93010 ==

== ENCOUNTER → 2024-08-08 13:14 | Outpatient (BNV) | payer OTHER, SELFPAY | PROVIDERS: Admitting Provider Registered Nurse; Emergency Provider Emergency Medicine; Responsible Provider Registered Nurse; Visit Provider Registered Nurse | DX: F33.2 Major depressive disorder, recurrent severe without psychotic features (principal); F14.10 Cocaine abuse, uncomplicated; F11.90 Opioid use, unspecified, uncomplicated; Z59.00 Homelessness unspecified | CPT/HCPCS: 90792; 99231; 99232; 99238 ==

== ENCOUNTER 2024-08-18 23:09 | Emergency (ER) | payer OTHER, SELFPAY ==
[2024-08-18 23:18] VITALS: BP 114/77; PULSE 83; RESP 14; TEMP 37.1; O2SAT 96; BMI 22.0
--- NOTE | 2024-08-18 23:45 | ED.GENADULT ---
HPI - General Adult General Chief complaint: Psychiatric Symptoms Stated complaint: Crisis Time Seen by Provider: 08/18/24 23:45 History of Present Illness ED Provider: Reba YEN narrative: The patient is a 43-year-old male who was recently hospitalized at this hospital on a psychiatric unit. He was hospitalized from August 08 until earlier today on July 18. He says that when he was discharged earlier today he did not feel that he was ready for discharge. He was still feeling very hopeless. He says that he had no plan for what he would do out of the hospital and was somewhat reluctant to be discharged. He says that he was essentially discharged the streets. He says he then depressed and suicidal and returned to the hospital. He denies having done anything to harm himself since leaving the hospital. He denies any ingestions. He denies cutting himself or harming himself in any other way. Related Data Home Medications ?Medication ?Instructions ?Recorded ?Confirmed methadone 10 mg/mL oral 85 mg PO DAILY 03/20/24 08/08/24 concentrate (Methadose) Previous Rx's ?Medication ?Instructions ?Recorded gabapentin 100 mg capsule 200 mg (2 x 100 mg) PO BID 14 days 08/18/24 #56 caps melatonin 3 mg tablet 3 mg PO BEDTIME 30 days #30 tabs 08/18/24 paroxetine HCl 20 mg tablet 20 mg PO DAILY 30 days #30 tabs 08/18/24 quetiapine 300 mg tablet 300 mg PO BEDTIME 30 days #30 tabs 08/18/24 quetiapine 50 mg tablet 50 mg PO BID@0900,1500 30 days #60 08/18/24 tabs Allergies Allergy/AdvReac Type Severity Reaction Status Date / Time amoxicillin [Amoxicillin] Allergy Mild SWELLING Verified 08/18/24 23:21 Penicillins Allergy Mild SWELLING Verified 08/18/24 23:21 penicillin V Allergy Unknown unknown Verified 08/18/24 23:21 Doxycycline Hyclate Allergy Unknown unknown Uncoded 08/18/24 23:21 Review of Systems Review of Systems: Yes all other systems are reviewed and are negative [facility] Past Medical History Medical History Polysubstance abuse Cocaine use disorder Opioid use disorder MDD (major depressive disorder), recurrent severe, without psychosis Anxiety and depression Anxiety Surgical History No pertinent past surgical history Family History Family History Father COPD (chronic obstructive pulmonary disease) Mother Cancer Maternal Uncle Mental health disorder Paternal Uncle Mental health disorder Social History Social History Household Members: None Housing: Homeless Do you presently have visiting nurse or other home services: No Alcohol intake: current Patient Tobacco Use Status: Current someday Tobacco user Tobacco use type: Cigarette Cigarette Packs Per Day: 0.5 Cigarettes Per Day: 10.0 Smoked in Last 30 Days: Yes e-Cigarette/Vaping Use: Never Used Second Hand Smoke Exposure: No Use of substances other than those prescribed or required for medical reasons: Yes Substance Use Type: Crack/Cocaine and Heroin Advance Directives: No Do you have a plan to hurt others: No Plan service: No Current occupational status: unemployed Sexual orientation: Straight/Heterosexual Cognitive needs: No Hearing needs: No Vision needs: No Physical Exam ED Vital Signs: Vital Signs - 24 hr 08/18/24 23:18 Temperature 98.7 F Pulse Rate 83 Respiratory Rate 14 Blood Pressure 114/77 Pulse Oximetry 96 Oxygen Delivery Method Room Air BMI result Body Mass Index 22.0 Const Other: The patient is a slim, unkempt, chronically ill-appearing 43-year-old who was awake and alert, calm and cooperative. He does not appear ill or in distress. HENMT Other: The face is symmetrical. He has a great deal of diffuse dental decay. Mucous membranes are moist. Eyes General: appearance normal, both eyes and all related structures Neck Neck: Yes full ROM and Yes no lymphadenopathy Resp Effort & Inspection: normal respiratory effort Auscultation: clear to auscultation bilaterally Cardio Rate: regular rate Rhythm: regular rhythm Heart sounds: S1 normal heart sound present and S2 normal heart sound present GI Other: Abdomen is soft and nontender Skin Other: The skin is warm and dry. He has a lot of chronic skin changes. Neuro Other: The patient is awake, alert, oriented, appropriate. Mental status seems clear. Cranial nerves 2-12 are intact. He moves his extremities normally and appropriately with normal strength and coordination. He has a normal gait. He is neurologically intact Extrem Other: No peripheral edema Psych Other: The patient has a subdued affect but makes good eye contact. Medications Administered Discontinued Medications Generic Name Dose Route Start Last Admin Trade Name Raad PRN Reason Stop Dose Admin Acetaminophen 975 mg 08/19/24 00:57 08/19/24 01:04 Acetaminophen 325 Mg Tablet PO 08/19/24 00:58 975 mg ONCE ONE Administration Medical Decision Making Medical Decision Making [facility] Narrative: The patient is a 43-year-old male who returns to the hospital about 12 hours after being discharged from our inpatient psychiatric unit. He had been admitted for depression and substance use disorder. Although the patient has been in the hospital for the last team days his urine tox screen today is positive for opioids, methadone, fentanyl, and cocaine. This is a very similar pattern to his urine testing from August 08. I think this suggest that the patient may have used drugs since leaving the hospital earlier today. The patient returns complaining of ongoing depression and thoughts of self-harm. He seems medically stable. We will have him re-evaluated by the Care Team. The patient will be placed in physician observation pending care team evaluation Lab Data 08/18/24 23:36 08/19/24 00:06 Labs: Lab Results 08/18/24 08/19/24 Range/Units 23:36 00:06 WBC 6.4 (4.8-10.8) X10*3/uL RBC 5.77 (4.60-5.80) X10*6/uL Hgb 15.4 (14.0-18.0) g/dl Hct 46.8 (42.0-52.0) % MCV 81.1 (80.0-98.0) fL MCH 26.7 L (27.0-33.0) pg MCHC 32.9 (31.0-36.0) g/dl RDW 13.7 (11.0-16.0) % Plt Count 172 D (160-400) X10*3/uL MPV 9.3 L (9.4-12.4) fL Immature Gran % (Auto) 0.5 H (0.0-0.4) % Neut % (Auto) 63.5 (45-73) % Lymph % (Auto) 30.7 (20-40) % [place] % (Auto) 4.5 (2-11) % Eos % (Auto) 0.5 (0-4) % Baso % (Auto) 0.3 (0-2) % Lymph # (Auto) 2.0 (1.2-4.9) X10*3/uL [place] # (Auto) 0.3 (0.1-1.2) X10*3/uL Eos # (Auto) 0.0 (0.0-0.4) X10*3/uL Baso # (Auto) 0.0 (0.0-0.2) X10*3/uL Abs Immat Gran (auto) 0.03 (0.00-0.03) X10*3/uL Absolute Neuts (auto) 4.1 (2.0-8.3) x10*3/uL Absolute Nucleated RBC 0.000 (0.0-0.012) X10*3/uL Nucleated RBC % (auto) 0.0 (0.0-0.2) /100WBC Smear Tech's Comments VERIFIED Sodium 136 (135-145) mmol/L Potassium 4.4 D (3.3-5.1) mmol/L Chloride 99 (96-108) mmol/L Carbon Dioxide 27 (22-29) mmol/L Anion Gap 14 (12-20) BUN 12 (9-16) mg/dL Creatinine 0.74 (0.5-1.4) mg/dL Estim Creat Clear Calc 128.9 Estimated GFR > 60 Random Glucose 87 (60-115) mg/dL Calcium 9.0 (8.4-10.2) mg/dL Total Bilirubin 0.3 (0.0-1.0) mg/dL AST 31 (5-37) U/L ALT 17 (0-40) U/L Alkaline Phosphatase 73 (39-117) U/L Total Protein 8.1 H (6.5-8.0) g/dL Albumin 4.1 (3.5-5.0) g/dL Urine Opiates Screen POSITIVE H (Not Detect) Ur Buprenorphine Scrn Not Detected (Not Detect) ng/mL Ur Oxycodone Screen Not Detected (Not Detect) ng/mL Urine Methadone Screen Positive H (Not Detect) ng/mL Urine Fentanyl Screen POSITIVE H (Not Detect) Ur Barbiturates Screen Not Detected (Not Detect) Ur Phencyclidine Scrn Not Detected (Not Detect) Ur Amphetamines Screen Not Detected (Not Detect) U Benzodiazepines Scrn Not Detected (Not Detect) Urine Cocaine Screen POSITIVE H (Not Detect) U Marijuana (THC) Screen Not Detected (Not Detect) Ethyl Alcohol < 10 mg/dL Discharge Plan Discharge Clinical Impression: Depression Patient Disposition: Still a Patient Prescriptions: No Action methadone [Methadose] 10 mg/mL concentrate 85 mg PO DAILY Rx Instructions: Partial Fill upon patient request. melatonin 3 mg Tablet 3 mg PO BEDTIME 30 Days Qty: 30 0RF quetiapine 50 mg Tablet 50 mg PO BID@0900,1500 30 Days Qty: 60 0RF quetiapine 300 mg Tablet 300 mg PO BEDTIME 30 Days Qty: 30 0RF paroxetine HCl 20 mg Tablet 20 mg PO DAILY 30 Days Qty: 30 0RF gabapentin 100 mg Capsule 200 mg PO BID 14 Days Qty: 56 1RF Interventions: [place]-Suicide Risk Severity Scale Last Done: 08/19/24 00:41 Print Language: Paraguayan
[2024-08-18 23:53] LABS: Eosinophils Percent Auto 0.5 % (0-4); Hematocrit 46.8 % (42.0-52.0); Hemoglobin 15.4 g/dl (14.0-18.0); Mean Corpuscular HGB Conc 32.9 g/dl (31.0-36.0); Mean Corpuscular Hemoglobin 26.7 pg (27.0-33.0); Mean Corpuscular Volume 81.1 fL (80.0-98.0); PLT CLUMP 1; Red Blood Count 5.77 X10*6/uL (4.60-5.80); SCAN SMEAR FLAG 1
[2024-08-18 23:55] LABS: Basophils Percent Auto 0.3 % (0-2); Imm Gran Abs Auto 0.03 X10*3/uL (0.00-0.03); Imm Gran Pct Auto 0.5 % (0.0-0.4); Lymphocytes Percent Auto 30.7 % (20-40); MANUAL DIFF FLAG SCAN; Mean Platelet Volume 9.3 fL (9.4-12.4); Monocytes Absolute Auto 0.3 X10*3/uL (0.1-1.2); Monocytes Percent Auto 4.5 % (2-11); Neutrophils Absolute Auto 4.1 x10*3/uL (2.0-8.3); Neutrophils Percent Auto 63.5 % (45-73); Red Cell Distribution Width 13.7 % (11.0-16.0)
[2024-08-18 23:56] LABS: White Blood Count 6.4 X10*3/uL (4.8-10.8)
[2024-08-19 00:24] LABS: Platelet Count 172 X10*3/uL (160-400); SLIDE REVIEW VERIFIED
[2024-08-19 00:33] LABS: Amphetamine Screen Urine Not Detected (Not Detect); Barbiturates, Urine Not Detected (Not Detect); Benzodiazepines Screen Urine Not Detected (Not Detect); Buprenorphine Scr Not Detected (Not Detect); Cannabinoid Screen Urine Not Detected (Not Detect); Cocaine Screen Urine POSITIVE (Not Detect); Fentanyl, urine POSITIVE (Not Detect); Methadone Screen, Urine Positive (Not Detect); Opiate Screen Urine POSITIVE (Not Detect); Oxycodone Screen Urine Not Detected (Not Detect); Phencyclidine Screen Urine Not Detected (Not Detect)
[2024-08-19 00:38] LABS: Alanine Aminotransferase 17 U/L (0-40); Albumin Level 4.1 g/dL (3.5-5.0); Alkaline Phosphatase 73 U/L (39-117); Anion Gap 14 (12-20); Aspartate Amino Transferase 31 U/L (5-37); Bilirubin Total 0.3 mg/dL (0.0-1.0); Blood Urea Nitrogen 12 mg/dL (9-16); Carbon Dioxide 27 mmol/L (22-29); Chloride 99 mmol/L (96-108); Creatinine Clr Calc Pharmacy 128.9; Estimated Glomerular Filt Rate > 60; Ethanol < 10 mg/dL; Glucose Random 87 mg/dL (60-115); Potassium 4.4 mmol/L (3.3-5.1); Sodium 136 mmol/L (135-145); Total Protein 8.1 g/dL (6.5-8.0)
[2024-08-19] MEDS: Acetaminophen 325 MG TABLET 975 MG PO (01:04)
[2024-08-19 02:36] LABS: Influenza A PCR NEGATIVE (Negative); Influenza B PCR NEGATIVE (Negative); Resp Syncy Virus RNA Qual PCR POSITIVE (Negative); SARS COV2 PCR INHOUSE NEGATIVE (Negative)
[2024-08-19 06:59] VITALS: BP 114/72; PULSE 62; RESP 18; TEMP 36.6; O2SAT 98
--- NOTE | 2024-08-19 10:03 | HE.PHANOTE ---
RE: METHADONE DOSING Last dose of methadone 85 mg [place] [facility] [place] @0809.
[2024-08-19] MEDS: methADONE HCl 20 MG/2 ML ORAL.CONC 85 MG PO (11:22)
--- NOTE | 2024-08-19 13:39 | MHC.RECOVRN ---
Met with pt in [id number] after pt cleared by CARE Team. Pt sitting in bed, awake, alert, easily engages in conversation. Pt reports when he was inpatient he had a choice to be referred to [facility]. Pt reports his roommate did not speak highly of the facility so he did not want to go. Pt reports after discharge he used 1 bag heroin/fentanyl, IV, as well as $15-$20 cocaine. Pt reports he prefers IV use as opposed to INH, however, has had difficulty finding veins. Pt reports this has helped with reducing use as he reiterated he prefers IV route. Pt is currently engaged with [facility], reports he has been taking methadone since 2008. Currently at 85 mg, reports he had been as high as 179 mg. Discussed harm reduction, pt reports he utilizes [facility]. Pt reports he recently received gloves and other items from [facility] as well. Educated pt on [facility], pt reported some interest. Pt reports after discharge today he plans to go to [facility] and utilize their warming assisted on [facility]. Pt provided with written resources as well as t/w contact information if needed. Pt denies questions or concerns at this time.
[2024-08-19 13:49] VITALS: BP 114/72; PULSE 62; RESP 18; TEMP 36.6; O2SAT 98
== END 2024-08-19 14:06 | disposition home or self-care (01) ==
PROVIDERS: Emergency Provider Emergency Medicine; PCP Nurse Practitioner Family
DX: F32.A Depression, unspecified (principal); F19.90 Other psychoactive substance use, unspecified, uncomplicated; Z59.00 Homelessness unspecified; Z79.899 Other long term (current) drug therapy; Z03.818 Encounter for observation for suspected exposure to other biological agents ruled out
CPT/HCPCS: 0241U; 36415; 80053; 80307; 85025; 99284; 99285; S9485

== ENCOUNTER 2024-08-24 18:49 | Emergency (ER) | payer OTHER, SELFPAY ==
[2024-08-24 19:21] VITALS: BP 139/65; PULSE 74; RESP 14; TEMP 36.8; O2SAT 97; BMI 20.7
--- NOTE | 2024-08-24 19:21 | ED_ITS ---
HPI - Psych General Chief Complaint: Psychiatric Symptoms Stated Complaint: Crisis Time Seen by Provider: 08/24/24 22:35 Source: patient, RN notes reviewed and old records reviewed Mode of arrival: ambulatory Limitations: no limitations History of Present Illness ED Provider: Wandy YEN Narrative: 43 Year old male past medical history significant for polysubstance abuse, major depressive disorder, anxiety presents for evaluation of depression with suicidal ideation. The patient reports feeling suicidal without a plan for the last few weeks. He endorses polysubstance abuse He uses IV drugs and uses heroin and cocaine. He last used IV drugs a few days ago. He reports that he has been unable to find his veins any longer when attempting to inject He does not have any fevers or chills or concerns for infection. The patient reports that he seems to have increasing depression since his father about a year and a half ago The patient reports that he has not been on any medications for anxiety and depression He reports feeling unwell Related Data Home Medications ?Medication ?Instructions ?Recorded ?Confirmed methadone 10 mg/mL oral 85 mg PO DAILY 03/20/24 08/24/24 concentrate (Methadose) Previous Rx's ?Medication ?Instructions ?Recorded gabapentin 100 mg capsule 200 mg (2 x 100 mg) PO BID 14 days 08/18/24 #56 caps melatonin 3 mg tablet 3 mg PO BEDTIME 30 days #30 tabs 08/18/24 paroxetine HCl 20 mg tablet 20 mg PO DAILY 30 days #30 tabs 08/18/24 quetiapine 300 mg tablet 300 mg PO BEDTIME 30 days #30 tabs 08/18/24 quetiapine 50 mg tablet 50 mg PO BID@0900,1500 30 days #60 08/18/24 tabs Allergies Allergy/AdvReac Type Severity Reaction Status Date / Time amoxicillin [Amoxicillin] Allergy Mild SWELLING Verified 08/24/24 19:26 Penicillins Allergy Mild SWELLING Verified 08/24/24 19:26 penicillin V Allergy Unknown unknown Verified 08/24/24 19:26 Doxycycline Hyclate Allergy Unknown unknown Uncoded 08/24/24 19:26 Review of Systems 2 Constitutional: Constitutional: Denies body ache(s), Denies chills, Denies fever(s) and Denies headache(s) ENT: Denies vertigo, Denies dizziness and Denies headache(s) Cardiovascular: Cardiovascular: Denies chest pain, Denies chest pain at rest and Denies dyspnea Respiratory: Respiratory: Denies cough and Denies dyspnea Gastrointestinal: Gastrointestinal: Denies abdominal pain Musculoskeletal: Musculoskeletal: Denies back pain Integumentary/Breasts: Skin/Breast: Denies rash Neurologic: Denies vertigo, Denies dizziness and Denies headache(s) Psychiatric: Psychiatric: Reports anxiety, Reports depression and Reports suicidal ideation PMFSH Past Medical History Medical History Polysubstance abuse Cocaine use disorder Opioid use disorder MDD (major depressive disorder), recurrent severe, without psychosis Anxiety and depression Anxiety Surgical History No pertinent past surgical history Family History Family History Father COPD (chronic obstructive pulmonary disease) Mother Cancer Maternal Uncle Mental health disorder Paternal Uncle Mental health disorder Social History Social History Household Members: None Housing: Homeless Do you presently have visiting nurse or other home services: No Alcohol intake: current Patient Tobacco Use Status: Current someday Tobacco user Tobacco use type: Cigarette Cigarette Packs Per Day: 0.5 Cigarettes Per Day: 10.0 Smoked in Last 30 Days: Yes e-Cigarette/Vaping Use: Never Used Second Hand Smoke Exposure: No Use of substances other than those prescribed or required for medical reasons: Yes Substance Use Type: Crack/Cocaine, Heroin and Marijuana Substance Use Frequency: Chronic Longstanding Advance Directives: No Advance Directives Information Provided: Yes service: No Current occupational status: unemployed Sexual orientation: Straight/Heterosexual Cognitive needs: No Hearing needs: No Vision needs: No Physical Exam 2 Vital Signs: Vital Signs: Last Vital Signs Temp 98.9 F 08/26/24 06:15 Pulse 68 08/26/24 06:15 Resp 17 08/26/24 06:15 BP 138/94 H 08/26/24 06:15 Pulse Ox 99 08/26/24 06:15 O2 Del Method Room Air 08/26/24 06:15 BMI result Body Mass Index 20.7 Const: General: healthy appearing, comfortable, no acute distress, alert and awake Nutritional Appearance: well nourished Orientation/consciousness: p atient oriented x3 HEENT: Head: Yes normocephalic and Yes atraumatic Eyes: Eyelids: Yes eyelids normal Conjunctivae: conjunctivae normal S clerae: sclerae normal Corneas: corneas normal Pupils: Equal, round and reactive pupils present EOM: EOMs intact bilaterally Neck: Neck: Yes full ROM Resp: Effort & Inspection: normal respiratory effort, able to speak in complete sentences and not labored Skin: General skin exam: elasticity normal Neuro: General: patient oriented x3 Cranial nerves: Yes CN's II-XII intact bilaterally, Yes Equal, round and reactive pupils present and Yes Bilaterally intact EOM present Cognition (Neuro): normal cognition Course Course Course Narrative: This is a Rapid Medical Exam performed in triage by Libia Chung PA-C. Full HPI, ROS and PE to be performed by primary ED provider. 43-year-old male with a past medical history homelessness substance use disorder, MDD, presenting to the ED c/o having a tough time, feeling hopeless. +SI w/o plan. No HI. Admits to using fentanyl & cocaine (IVDA & snorting) last used a few days ago. denies ETOH. On methadone, last dose 08/19/24 (at [facility]) PE: sad, +SI Plan: labs, DE SOUZA, CARE team consult Reevaluation(s) Reevaluation #1: observation continued, VS stable, pending CARE team input ADRIANNA 08/25/24 714am Reevaluation #2: 08/26/2024 Dr. Freddy Werner's note: 08:10 Physician observation continued 43-year-old male presents emergency department for evaluation of feeling hopeless, heroin and cocaine use. Patient was been seen by the care team and it was a dual diagnosis bed search. There were no reported incidents on this patient by the overnight nurse. Patient was been in the emergency department for 37 hours. Patient will remain in the emergency department Behavioral Health Unit until disposition can be determined or until patient's symptoms improve over time. 11:13 End physician observation on 08/26/2024 at 11:13 hours: 43-year-old male presents emergency department for evaluation hopelessness, heroin and cocaine use disorder, patient has been for further [place] [facility]. Patient will be transferred by ambulance on a Section 12 for transfer. Observation care revealed the the patient [does meet medical necessity for hospitalization. Exam at time of disposition revealed the patient was awake, alert , oriented to person place, was not in any distress. ? Final disposition discussed with the patient and he verbalized understanding and agreement. Patient started observation time on 08/26/2024 at 08:10 hours Patient completed observation care on 08/26/2024 at 11:13 hours Total time spent in observation care was 3 hours and 3 minutes. Time: 08:09 Medications Administered Generic Name Dose Route Start Last Admin Trade Name Freq PRN Reason Stop Dose Admin Gabapentin 200 mg 08/25/24 09:00 08/26/24 08:11 Gabapentin 100 Mg Capsule PO 200 mg BID STEPH Administration Melatonin 3 mg 08/25/24 21:00 08/25/24 21:19 Melatonin 3 Mg Tablet PO 3 mg BEDTIME STEPH Administration Methadone HCl 85 mg 08/25/24 09:00 08/26/24 08:08 Methadone Hcl 20 Mg/2 Ml Oral.Conc PO 85 mg DAILY STEPH Administration Paroxetine HCl 20 mg 08/25/24 09:00 08/26/24 09:21 Paroxetine Hcl 20 Mg Tablet PO 20 mg DAILY STEPH Administration Quetiapine Fumarate 50 mg 08/25/24 09:00 08/26/24 08:11 Quetiapine Fumarate 50 Mg Tablet PO 50 mg BID@0900,1500 STEPH Administration Quetiapine Fumarate 300 mg 08/25/24 21:00 08/25/24 21:22 Quetiapine Fumarate 300 Mg Tablet PO 300 mg BEDTIME STEPH Administration Discontinued Medications Generic Name Dose Route Start Last Admin Trade Name Freq PRN Reason Stop Dose Admin Ibuprofen 600 mg 08/26/24 09:19 08/26/24 09:21 Ibuprofen 600 Mg Tablet PO 08/26/24 09:20 600 mg ONCE ONE Administration Methadone HCl 20 mg 08/25/24 00:47 08/25/24 01:14 Methadone Hcl 20 Mg/2 Ml Oral.Conc PO 08/25/24 00:48 20 mg ONCE ONE Administration Medical Decision Making Medical Decision Making MDM Narrative: 43-year-old male presents for evaluation of depression with suicidal ideation. His labs show no concerning abnormalities. He has no obvious signs of infection from his IV drug abuse. He was medically cleared for care team evaluation and he was evaluated. He meets criteria for inpatient level of care for dual diagnosis treatment. This was given here on 08/19/2024 per his report. We are unable to call his methadone clinic at this time to confirm his dosing. I discussed with the on-call pharmacist who feels comfortable giving the patient a 20 mg dose for 1 time now in his long as he was not somnolent in the morning he may continue with his 85 mg dosing Differential Diagnosis Differential Diagnoses: The differential diagnosis associated with the presentation includes Substance abuse Depression Suicidal ideation Medication noncompliance Lab Data MDM Lab Attestation statement: I reviewed the patient's lab results. No leukocytosis or significant anemia. Normal platelet count. No electrolyte abnormalities. 08/24/24 20:42 08/24/24 20:42 Labs: Lab Results 08/24/24 08/24/24 Range/Units 20:42 20:43 WBC 8.0 (4.8-10.8) X10*3/uL RBC 5.12 (4.60-5.80) X10*6/uL Hgb 13.8 L (14.0-18.0) g/dl Hct 40.7 L (42.0-52.0) % MCV 79.5 L (80.0-98.0) fL MCH 27.0 (27.0-33.0) pg MCHC 33.9 (31.0-36.0) g/dl RDW 13.5 (11.0-16.0) % Plt Count 266 D (160-400) X10*3/uL MPV 9.8 (9.4-12.4) fL Immature Gran % (Auto) 0.3 (0.0-0.4) % Neut % (Auto) 58.1 (45-73) % Lymph % (Auto) 31.2 (20-40) % Franklin % (Auto) 9.3 (2-11) % Eos % (Auto) 0.6 (0-4) % Baso % (Auto) 0.5 (0-2) % Lymph # (Auto) 2.5 (1.2-4.9) X10*3/uL Franklin # (Auto) 0.7 (0.1-1.2) X10*3/uL Eos # (Auto) 0.1 (0.0-0.4) X10*3/uL Baso # (Auto) 0.0 (0.0-0.2) X10*3/uL Abs Immat Gran (auto) 0.02 (0.00-0.03) X10*3/uL Absolute Neuts (auto) 4.6 (2.0-8.3) x10*3/uL Absolute Nucleated RBC 0.000 (0.0-0.012) X10*3/uL Nucleated RBC % (auto) 0.0 (0.0-0.2) /100WBC Sodium 136 (135-145) mmol/L Potassium 3.5 D (3.3-5.1) mmol/L Chloride 102 (96-108) mmol/L Carbon Dioxide 23 (22-29) mmol/L Anion Gap 15 (12-20) BUN 14 (9-16) mg/dL Creatinine 0.69 (0.5-1.4) mg/dL Estim Creat Clear Calc 130.1 Estimated GFR > 60 Random Glucose 116 H (60-115) mg/dL Calcium 8.9 (8.4-10.2) mg/dL Total Bilirubin 0.6 (0.0-1.0) mg/dL Direct Bilirubin 0.1 (0.0-0.5) mg/dL AST 38 H (5-37) U/L ALT 22 (0-40) U/L Alkaline Phosphatase 83 (39-117) U/L Total Protein 8.1 H (6.5-8.0) g/dL Albumin 4.1 (3.5-5.0) g/dL Urine Color Dark Yellow Urine Appearance Clear Urine pH 6.0 (5.0-9.0) Ur Specific [place] >= 1.030 H (1.005-1.025) Urine Protein 30 (1+) H (Neg-Trace) mg/dL Urine Glucose (UA) Negative (Negative) mg/dL Urine Ketones Negative (Negative) mg/dL Urine Blood Negative (Negative) Urine Nitrite Negative (Negative) Ur Leukocyte Esterase Negative (Negative) Urine RBC 0-2 (0-2) /HPF Urine WBC 0-5 (0-5) /HPF Ur Squamous Epith Cells 0-2 (0-2) /HPF Urine Bacteria None Seen (None Seen) Hyaline Casts 0-2 (0-2) /LPF Salicylates < 5.0 L (15-30) mg/dL Urine Opiates Screen POSITIVE H (Not Detect) Ur Buprenorphine Scrn Not Detected (Not Detect) ng/mL Ur Oxycodone Screen Not Detected (Not Detect) ng/mL Urine Methadone Screen Positive H (Not Detect) ng/mL Urine Fentanyl Screen POSITIVE H (Not Detect) Acetaminophen < 3 (<30) mcg/mL Ur Barbiturates Screen Not Detected (Not Detect) Ur Phencyclidine Scrn Not Detected (Not Detect) Ur Amphetamines Screen Not Detected (Not Detect) U Benzodiazepines Scrn Not Detected (Not Detect) Urine Cocaine Screen POSITIVE H (Not Detect) U Marijuana (THC) Screen POSITIVE H (Not Detect) Ethyl Alcohol < 10 mg/dL Discharge Plan Discharge Clinical Impression: Depression with suicidal ideation, Polysubstance abuse Patient Disposition: Still a Patient Transfer Details: [facility] Prescriptions: No Action methadone [Methadose] 10 mg/mL concentrate 85 mg PO DAILY Rx Instructions: Partial Fill upon patient request. melatonin 3 mg Tablet 3 mg PO BEDTIME 30 Days Qty: 30 0RF quetiapine 50 mg Tablet 50 mg PO BID@0900,1500 30 Days Qty: 60 0RF quetiapine 300 mg Tablet 300 mg PO BEDTIME 30 Days Qty: 30 0RF paroxetine HCl 20 mg Tablet 20 mg PO DAILY 30 Days Qty: 30 0RF gabapentin 100 mg Capsule 200 mg PO BID 14 Days Qty: 56 1RF Interventions: Davis-Suicide Risk Severity Scale Last Done: 08/26/24 07:12 Print Language: [place]
--- NOTE | 2024-08-24 20:02 | MHC.EDTECH ---
pt brought from triage, changed over without incident. Pt belongings placed in locker 4.
[2024-08-24 20:50] LABS: MANUAL DIFF FLAG NO
[2024-08-24 20:51] LABS: Appearance Urine Clear; Color Urine Dark Yellow; Glucose Urine UA Negative (Negative); Leukocyte Esterase Urine Negative (Negative); Nitrite Urine Negative (Negative); Specific Gravity - Urine >= 1.030 (1.005-1.025); UMIC TRIGGER UACC YES; Urine Blood Negative (Negative); Urine Ketones Negative (Negative); Urine Protein 30 (1+) mg/dL (Neg-Trace)
[2024-08-24 20:51] LABS: Basophils Percent Auto 0.5 % (0-2); Eosinophils Absolute Auto 0.1 X10*3/uL (0.0-0.4); Eosinophils Percent Auto 0.6 % (0-4); Hematocrit 40.7 % (42.0-52.0); Hemoglobin 13.8 g/dl (14.0-18.0); Imm Gran Abs Auto 0.02 X10*3/uL (0.00-0.03); Imm Gran Pct Auto 0.3 % (0.0-0.4); Lymphocytes Absolute Auto 2.5 X10*3/uL (1.2-4.9); Lymphocytes Percent Auto 31.2 % (20-40); Mean Corpuscular HGB Conc 33.9 g/dl (31.0-36.0); Mean Corpuscular Volume 79.5 fL (80.0-98.0); Mean Platelet Volume 9.8 fL (9.4-12.4); Monocytes Absolute Auto 0.7 X10*3/uL (0.1-1.2); Monocytes Percent Auto 9.3 % (2-11); Neutrophils Absolute Auto 4.6 x10*3/uL (2.0-8.3); Neutrophils Percent Auto 58.1 % (45-73); Platelet Count 266 X10*3/uL (160-400); Red Blood Count 5.12 X10*6/uL (4.60-5.80); Red Cell Distribution Width 13.5 % (11.0-16.0)
[2024-08-24 20:54] LABS: Bacteria Urine None Seen (None Seen); Hyaline Casts Urine 0-2 /LPF (0-2); RBC Urine 0-2 /HPF (0-2); Squamous Epithelial Cell Urine 0-2 /HPF (0-2); WBC Urine 0-5 /HPF (0-5)
[2024-08-24 21:01] LABS: Amphetamine Screen Urine Not Detected (Not Detect); Barbiturates, Urine Not Detected (Not Detect); Benzodiazepines Screen Urine Not Detected (Not Detect); Buprenorphine Scr Not Detected (Not Detect); Cannabinoid Screen Urine POSITIVE (Not Detect); Cocaine Screen Urine POSITIVE (Not Detect); Fentanyl, urine POSITIVE (Not Detect); Methadone Screen, Urine Positive (Not Detect); Opiate Screen Urine POSITIVE (Not Detect); Oxycodone Screen Urine Not Detected (Not Detect); Phencyclidine Screen Urine Not Detected (Not Detect)
[2024-08-24 21:05] LABS: Alanine Aminotransferase 22 U/L (0-40); Albumin Level 4.1 g/dL (3.5-5.0); Alkaline Phosphatase 83 U/L (39-117); Anion Gap 15 (12-20); Aspartate Amino Transferase 38 U/L (5-37); Bilirubin Direct 0.1 mg/dL (0.0-0.5); Bilirubin Total 0.6 mg/dL (0.0-1.0); Blood Urea Nitrogen 14 mg/dL (9-16); Calcium 8.9 mg/dL (8.4-10.2); Carbon Dioxide 23 mmol/L (22-29); Chloride 102 mmol/L (96-108); Creatinine Clr Calc Pharmacy 130.1; Estimated Glomerular Filt Rate > 60; Glucose Random 116 mg/dL (60-115); Potassium 3.5 mmol/L (3.3-5.1); Sodium 136 mmol/L (135-145); Total Protein 8.1 g/dL (6.5-8.0)
[2024-08-24 21:10] LABS: Acetaminophen LAB < 3 mcg/mL (<30); Ethanol < 10 mg/dL; Salicylate < 5.0 mg/dL (15-30)
--- NOTE | 2024-08-24 21:14 | MHC.CARE ---
Spoke with Pt's sister (Juliana; [phone]) who is listed as his emergency contact. She reports that she has not spoken to Pt for at least a year. She expresses that Pt has a lengthy addiction hx and there is a family hx of mental health: Mother's brother has a dx of Bipolar Disorder, Mother/father struggle with depression, Juliana has a dx of anxiety and ADHD. She reports her and Pt are 11 years apart. No known hx of SI attempts, only has witnessed SI threats in the past.
--- NOTE | 2024-08-24 23:18 | MHC.CARE ---
Pt evaluated by the CARE team and is a Dual Dx bedsearch at this time. Pt is on a section 12A for safety.
[2024-08-25] MEDS: methADONE HCl 20 MG/2 ML ORAL.CONC PO (01:14)
[2024-08-25 07:19] VITALS: BP 144/90; PULSE 79; RESP 16; TEMP 36.9; O2SAT 100
--- NOTE | 2024-08-25 07:40 | PC.NURSE ---
Assumed care of patient at 0645, patient appears to be in no apparent distress this am, respriations even and unlabored, laying in bed. Continue plan of care for dual dx bedsearch
--- NOTE | 2024-08-25 08:08 | PC.NURSE ---
This RN has attempted to reach out to [facility] 4 times this am without success to verify pts methadone
[2024-08-25] MEDS: QUEtiapine Fumarate 50 MG TABLET PO (08:22)
[2024-08-25] MEDS: Gabapentin 100 MG CAPSULE 200 MG PO ×2 (08:22→21:19)
[2024-08-25] MEDS: methADONE HCl 20 MG/2 ML ORAL.CONC 85 MG PO (08:22)
[2024-08-25] MEDS: PARoxetine HCL 20 MG TABLET PO (10:03)
--- NOTE | 2024-08-25 10:05 | MHC.CARE ---
Dual Dx bedsearch exhausted
--- NOTE | 2024-08-25 16:43 | PHA.MEDREC ---
Pharmacy Consult ? Medication Reconciliation RN has completed the medication reconciliation, PHARMACY REVIEWED.
[2024-08-25 21:04] VITALS: BP 130/82; PULSE 60; RESP 16; TEMP 36.6; O2SAT 100
[2024-08-25] MEDS: Melatonin 3 MG TABLET PO (21:19)
[2024-08-25] MEDS: QUEtiapine Fumarate 300 MG TABLET PO (21:22)
--- NOTE | 2024-08-25 21:26 | PC.NURSE ---
pt woke up for his meds no distress, pt resting comfortably.
[2024-08-26 06:15] VITALS: BP 138/94; PULSE 68; RESP 17; TEMP 37.2; O2SAT 99
--- NOTE | 2024-08-26 07:49 | PC.NURSE ---
Assumed care of patient at 0645, patient is calm and cooperative, alert and oriented x4, offering no complaints to this RN at this time, eating breakfast. Continue plan of care for dual dx bedsearch
[2024-08-26] MEDS: methADONE HCl 20 MG/2 ML ORAL.CONC 85 MG PO (08:08)
[2024-08-26] MEDS: QUEtiapine Fumarate 50 MG TABLET PO (08:11)
[2024-08-26] MEDS: Gabapentin 100 MG CAPSULE 200 MG PO (08:11)
[2024-08-26] MEDS: Ibuprofen 600 MG TABLET PO (09:21)
[2024-08-26] MEDS: PARoxetine HCL 20 MG TABLET PO (09:21)
--- NOTE | 2024-08-26 10:51 | MHC.CARE ---
Patient has been accepted to [facility] @ [address] [place] [address], [place] [address] ETA 2pm, The accepting provider is Dr. Bender. Transport is being booked now.
[2024-08-26 14:05] VITALS: BP 132/68; PULSE 97; RESP 16; TEMP 37; O2SAT 98
== END 2024-08-26 14:07 | disposition still patient (30) ==
PROVIDERS: Physician Assistant; Emergency Provider Emergency Medicine Emergency Medical Services; PCP Nurse Practitioner Family
DX: F33.1 Major depressive disorder, recurrent, moderate (principal); R45.851 Suicidal ideations; F41.1 Generalized anxiety disorder; F43.0 Acute stress reaction; F11.10 Opioid abuse, uncomplicated; Z71.51 Drug abuse counseling and surveillance of drug abuser; F14.10 Cocaine abuse, uncomplicated; F17.210 Nicotine dependence, cigarettes, uncomplicated; Z51.81 Encounter for therapeutic drug level monitoring; Z79.899 Other long term (current) drug therapy
CPT/HCPCS: 36415; 80048; 80076; 80143; 80179; 80307; 81001; 85025; 99285; S9485